=== PATIENT | female | born 1940 | race Caucasian/White ===

== ENCOUNTER → 2016-09-03 | Outpatient (CLI) | payer BC ==
[~2016-09-03] MED LIST: ATOR10TA88 PO; CHOL100010 PO; CLR10 PO; CORN1POW2 PO; DOCU-94 PO; FLUT0.15 NAE; GLIM4TAB2 PO; HYDR-5688 PO; LISI20TA3 PO; MELA3TAB7 PO; METF500T5 PO; METO1TAB31 PO; MTML PO; NIFE30TA83 PO; SYMIN160 INH; TRAM-10 PO; VITA60003 TOP
[2016-09-03 11:17] LABS: ESTIMATED AVERAGE GLUCOSE 137 mg/dl; HA1C FLAG Normal (Normal)
[2016-09-03 11:38] LABS: BLOOD UREA NITROGEN 10 mg/dl (7-18); CREATININE 0.77 mg/dl (0.60-1.20); GLUCOSE 122 mg/dl (70-99)
[2016-09-03 11:39] LABS: ALT/SGPT 38 U/L (12-78); AST/SGOT 36 U/L (15-37); BUN/CREATININE RATIO 12.4 (10-20); CALCIUM 9.3 mg/dl (8.5-10.1); CARBON DIOXIDE 30 mmol/L (21-32); CHLORIDE 106 mmol/L (98-107); POTASSIUM 3.7 mmol/L (3.5-5.1); SODIUM 143 mmol/L (136-145)
[2016-09-03 11:50] LABS: ALB/GLOB RATIO 1.1 (0.9-2); ALKALINE PHOSPHATASE 73 U/L (45-117); CHOLESTEROL 127 mg/dl (0-200); CHOLESTEROL/HDL RATIO 3.8; HDL CHOLESTEROL 33 mg/dl; LDL CHOLESTEROL CALCULATED 41 mg/dl; TRIGLYCERIDES 266 mg/dl (0-150); VERY LOW DENSITY LIPOPROT CALC 53 mg/dl
--- NOTE | 2016-09-09 11:20 | CODING QUERY MEDICAL NECESSITY ---
SUPPORTING DIAGNOSIS NEEDED Dr. Krishna, A supporting diagnosis is required for the test/procedure performed on this patient in order for us to be reimbursed by the patient's insurance. Please provide a supporting diagnosis for the following test/procedure listed below next to the test name along with your signature. *If there is no additional diagnosis for this patient that would support the following test/procedure please document that below next to the test/procedure. Test(s)/Procedure(s) that require a supporting diagnosis: * ([id number]) VITAMIN D ASSAY DIAGNOSIS: DATE OF SERVICE: 09/03/16 Provider Signature: Date: Thank you Shakeel Persaud [facility] Information Management Once completed, please kindly fax back to [phone] For questions please call [phone]
== END | disposition home or self-care (01) ==
LOC: C.LAB1850 10:21
PROVIDERS: ATTEND Internal Medicine Geriatric Medicine
DX: I10 Essential (primary) hypertension (principal); J45.909 Unspecified asthma, uncomplicated; E11.59 Type 2 diabetes mellitus with other circulatory complications; I25.10 Atherosclerotic heart disease of native coronary artery without angina pectoris; E04.2 Nontoxic multinodular goiter; R91.1 Solitary pulmonary nodule; K76.0 Fatty (change of) liver, not elsewhere classified; E55.9 Vitamin D deficiency, unspecified

== ENCOUNTER → 2016-09-05 | Outpatient (CLI) | payer BC ==
--- NOTE | 2016-09-05 09:15 | DIAGNOSTIC IMAGING REPORT ---
CT OF THE CHEST WITHOUT IV CONTRAST CLINICAL HISTORY: Solitary pulmonary nodule COMPARISON STUDY: 01/08/2016 CT DOSE: 224.29 mGy.cm TECHNIQUE: CT of the thorax was performed from the thoracic inlet to the lung bases. Images are reviewed in the axial, sagittal, and coronal planes. IV contrast was not administered for this examination. FINDINGS: Thyroid: There is an enlarged multinodular thyroid gland similar to the preceding study. Nodules measure up to 2 cm in diameter. Thoracic aorta: PA sitting thoracic aorta measures 39 mm. Heart: There are coronary artery calcifications present. Lungs and pleural spaces: No pleural effusions are visualized. There are stable areas of interstitial scarring. There is a 1 cm subpleural right middle lobe pulmonary nodule. This appears to be increased slightly in size compared the prior study. Neoplasm is therefore the diagnosis of exclusion. Also evident is a 1.5 mm left apical pulmonary nodule which in retrospect remains unchanged. Mediastinum: There is no evidence of pathologic mediastinal lymphadenopathy. Aminata: There is no evidence of pathologic hilar lymphadenopathy given the limitations of a noncontrast study. Axilla: Clear. Upper abdomen: The gallbladder surgically absent. There is a 1 cm right breast nodule. Skeletal structures: There are no lytic or blastic osseous lesions. IMPRESSION: 1. Slowly growing 1 cm subpleural right middle lobe pulmonary nodule. A slowly growing neoplasm is the diagnosis of exclusion. 2. Multinodular thyroid goiter 3. No evidence of pathologic adenopathy Electronically signed by: Juan Mixon M.D. 09/05/2016 9:12 AM Dictated Date/Time: 09/05/2016 9:03 AM
== END | disposition home or self-care (01) ==
LOC: C.CTS 08:43
PROVIDERS: ATTEND Internal Medicine Pulmonary Disease
DX: R91.1 Solitary pulmonary nodule (principal); E04.2 Nontoxic multinodular goiter

== ENCOUNTER → 2016-09-19 | Outpatient (CLI) | payer BC ==
[2016-09-19 13:01] LABS: BASO % 0.2 %; BASO ABS # 0.01 K/uL (0-0.2); COMPLETE YES; EOS % 1.6 %; LYMPH % 35.3 %; LYMPH ABS # 1.57 K/uL (1.2-3.4); MEAN CELL VOLUME 91.1 fL (80-100); MEAN CORPUSCULAR HEMOGLOBIN 31.9 pg (25-34); MEAN PLATELET VOLUME 9.8 fL (7.4-10.4); MONO % 8.8 %; NEUT % 54.1 %; PLATELET COUNT 168 K/uL (130-400); RED BLOOD COUNT 4.17 M/uL (4.2-5.4); WHITE BLOOD COUNT 4.45 K/uL (4.8-10.8)
== END | disposition home or self-care (01) ==
LOC: C.LAB 12:17
PROVIDERS: ATTEND Surgery
DX: R91.1 Solitary pulmonary nodule (principal); C34.90 Malignant neoplasm of unspecified part of unspecified bronchus or lung

== ENCOUNTER 2016-10-02 05:24 | Inpatient (IN) | payer BC, OTHER ==
[2016-10-01 09:03] VITALS: BMI 29.0
[2016-10-02] VITALS (8 sets, daily range): BP systolic 148–184; BP diastolic 65–88; PULSE 56–66; TEMP 36.2–36.6; O2SAT 95–98; Ht 167.6 cm; Wt 82.3 kg
[~2016-10-02] VITALS: Ht 167.6 cm; Wt 82.3 kg
[~2016-10-02 05:24] MED LIST changes: -CORN1POW2 PO; -DOCU-94 PO; -HYDR-5688 PO; -TRAM-10 PO
[2016-10-02] MEDS ORDERED: LACTATED RINGER'S 1000ML 1,000 ML IV SCH (06:00)
[2016-10-02] MEDS ORDERED: ALBUMIN HUMAN 5% 12.5 GM/250 ML VIAL IV ONE (06:29)
[2016-10-02] MEDS ORDERED: LIDOCAINE HCL 2% 2 ML VIAL (20MG/ML) ONE (06:41)
[2016-10-02] MEDS ORDERED: PROPOFOL IV EMULSION 10 MG/ML 20 ML VIAL IV ONE (06:41)
[2016-10-02] MEDS ORDERED: MIDAZOLAM HCL 1 MG/ML 2ML VIAL ONE (06:41)
[2016-10-02] MEDS ORDERED: DEXAMETHASONE SOD INJ 4 MG/ML VIAL ONE (06:41)
[2016-10-02] MEDS ORDERED: ROCURONIUM BROMIDE 10 MG/ML 5 ML VIAL ONE ×2 (06:41→09:08)
[2016-10-02] MEDS ORDERED: FENTANYL CITRATE INJ 50 MCG/1 ML 2 ML VIAL ONE ×2 (06:41→08:56)
[2016-10-02] MEDS ORDERED: ONDANSETRON INJ 2 MG/ML 2 ML VIAL ONE (06:41)
[2016-10-02] MEDS ORDERED: GLYCOPYRROLATE INJ 0.2 MG/ML VIAL ONE (06:41)
[2016-10-02] MEDS ORDERED: NEOSTIGMINE METHYLSULFATE 5 MG/5 ML SYR ONE (06:41)
--- NOTE | 2016-10-02 06:41 | History & Physical Bridge Note ---
H&P Re-Evaluation Bridge Note: I have examined the patient, reviewed the History & Physical and in the interval since the performance of the History & Physical I have noted the following changes of clinical significance: No changes noted
[2016-10-02] MEDS ORDERED: PHENYLEPHRINE HCL INJ 10 MG/ML VIAL ONE (06:42)
[2016-10-02] MEDS ORDERED: LARYING-O-JET KIT (LTA) EXT ONE ×2 (06:44)
[2016-10-02] MEDS ORDERED: BUPIVACAINE LIPOSOME 1/3% 266 MG/20 ML VIAL INFIL ONE (07:05)
[2016-10-02] MEDS ORDERED: SODIUM CHLORIDE 0.9% PF 50 ML VIAL ONE (07:05)
[2016-10-02] MEDS ORDERED: CEFAZOLIN SOD 1 GM VIAL ONE (07:23)
[2016-10-02] MEDS ORDERED: SODIUM CHLORIDE 0.9% INJ 10 ML VIAL ONE (07:23)
[2016-10-02] MEDS ORDERED: ONDANSETRON INJ 2 MG/ML 2 ML VIAL IV PRN ×2 (09:15→11:00)
[2016-10-02] MEDS ORDERED: HYDROmorphone INJ 1 MG/ML SYR IV PRN (09:15)
[2016-10-02] MEDS ORDERED: ATROPINE SULFATE 0.1 MG/ML 5ML SYR IV PRN (09:15)
[2016-10-02] MEDS ORDERED: EpHEDrine SULFATE INJ 50 MG/ML AMP IV PRN (09:15)
[2016-10-02] MEDS ORDERED: PROMETHAZINE HCL INJ 6.25 MG in SODIUM CHLORIDE 0.9% 50ML 50 ML IV PRN (09:15)
[2016-10-02] MEDS ORDERED: SURGICEL ABSORB HEMOSTAT 2IN X 14IN TOP ONE (10:32)
[2016-10-02] MEDS ORDERED: OXYCODONE/ACETAMINOPHEN 5-325 TAB PO PRN (11:00)
[2016-10-02] MEDS ORDERED: BUDESONIDE/FORMOTEROL FUMARATE 160/4.5 60 PUFFS/INHALER INH PRN (11:00)
[2016-10-02] MEDS ORDERED: MoRPHine SULFATE 2 MG/ML CARP IV PRN (11:00)
[2016-10-02] MEDS: FENTANYL CITRATE INJ 50 MCG/1 ML 2 ML VIAL IV PRN ×4 (11:15→11:30)
--- NOTE | 2016-10-02 11:23 | DIAGNOSTIC IMAGING REPORT ---
CHEST ONE VIEW PORTABLE HISTORY: Postop. Right lung mass. COMPARISON: Chest 02/25/2014. FINDINGS: Small amount of right chest wall subcutaneous emphysema. There is suture material at the right lung base. Right-sided chest tube terminates within the right upper lung zone. There are few linear densities at the right lung base suggesting subsegmental atelectasis. No pneumothorax identified this time. Of note, the right medial lung apex is obscured by the patient's overlapping head. Patchy densities at the left lung base may represent atelectasis. The heart is enlarged. There are low lung volumes. IMPRESSION: Right-sided chest tube appears to be in good position. No definite right pneumothorax. Electronically signed by: Magnus Da Silva M.D. 10/02/2016 11:21 AM Dictated Date/Time: 10/02/2016 11:20 AM
--- NOTE | 2016-10-02 12:27 | OPERATIVE REPORT ---
DATE OF OPERATION: 10/02/2016 PREOPERATIVE DIAGNOSIS: Enlarging mass, right middle lobe. POSTOPERATIVE DIAGNOSIS: Benign cyst, right middle lobe. PROCEDURE: 1. Robotic-assisted thoracoscopic wedge resection of right middle and right lower lobe masses. 2. Lymph node biopsies SURGEON: Dr. Sánchez. ANTIQUE COLLECTOR: PETER Clements. ANESTHESIA: General anesthesia endotracheal intubation. INDICATIONS FOR PROCEDURE AND FINDINGS: Ms. Etienne is a 76-year-old female who is a patient of Dr. Nathaniel Krishna, who was found to have a mass in the right middle lobe. This was seen to be enlarging on CT scans. Her lung function showed she would easily tolerate a right middle lobectomy. We had a long talk about this and we elected to proceed with a resection. We discussed thoracoscopic open or a robotic approach and elected to proceed with a da Otis robot. On 10/02/2016, patient underwent uncomplicated wedge resection of this mass, which turned out to be a benign cyst. She also had an abnormal appearing whitish plaque on her lower lobe and we wedged both of these out. We had no air leak with negligible blood loss. We used an Exparel block. She tolerated it well. PROCEDURE IN DETAIL: The patient brought to the operating room and laid in supine position. General anesthesia induced and endotracheal intubation was performed with a double lumen tube. The patient was placed in left lateral decubitus position. Right chest was prepped and draped in the usual sterile fashion. After appropriate timeout had been called, 5 separate ports were placed. A 5 mm posterior port was placed as well as a 8.5 mm camera port, posterior port and anterior port. We also placed a port below this above the diaphragm which was 12 mm port for a stapler. The patient had no adhesions. The mass was easily seen. We grasped this and we excised this using an Endo-SANCHEZ stapler x2. This was a thin-walled cyst that ruptured when we were firing our stapler. I marked this with a marker and then discussed it with Dr. Luis Alfredo Serrano and he looked at this and felt on frozen section, this was a benign cyst. I also saw a whitish plaque which was also thin but I wedged this out of the lower lobe also. While waiting for the frozen sections, the inferior pulmonary ligament was taken down and the right level 8, 9 and 7 lymph nodes. We then used 266 mg of Exparel, reconstituted with 60 mL total of saline and performed a block from the 2nd to the 11th rib under thoracoscopic guidance. We then placed a 24-Eritrean chest tube directed towards the apex and secured in place with heavy silk suture. The incisions were closed with 0 Polysorb for the muscle layers as a single incision and then the skin was closed with 3-0 antimicrobial impregnated Vicryl. She tolerated this well. She had no air leak and negligible blood loss. She was extubated in the room. I attest to the content of the Intraoperative Record and any orders documented therein. Any exceptions are noted below. MTDD
[2016-10-02] MEDS: KETOROLAC TROMETHAMINE 15 MG/ML VIAL IV. SCH ×2 (13:41→22:15)
[2016-10-02] MEDS: METOCLOPRAMIDE HCL INJ 5 MG/ML 2 ML VIAL IV. SCH ×2 (13:41→22:14)
[2016-10-02] MEDS: CEFAZOLIN IV 2,000 MG in DEXTROSE 5% 50ML 100 ML IV SCH ×2 (13:42→22:55)
[2016-10-02] MEDS: ACETAMINOPHEN IV 1,000 MG in EMPTY BAG 0 ML IV SCH ×2 (13:42→22:15)
[2016-10-02] MEDS: SODIUM CHLORIDE 0.9% 1000ML 1,000 ML IV SCH (13:52)
[2016-10-02] MEDS: INSULIN ASPART 100 UNITS/ML 3 ML PEN SC SCH ×3 (14:02→21:21)
--- NOTE | 2016-10-02 14:33 | Anesthesiology Progress Note ---
Anesthesia Post Op Note Date & Time Oct 02, 2016 at 14:32 Vital Signs Pain Intensity: 10.0 Vital Signs Past 12 Hours Date Time Temp Pulse Resp B/P Pulse Ox O2 Delivery O2 Flow Rate FiO2 10/02/16 13:29 56 16 154/85 97 3.0 10/02/16 13:02 56 16 163/81 97 3.0 10/02/16 12:30 36.2 57 16 159/82 95 Nasal Cannula 4.0 10/02/16 12:00 36.2 55 14 156/68 98 Nasal Cannula 4 10/02/16 11:50 36.2 55 14 152/63 98 Nasal Cannula 4 10/02/16 11:40 36.2 55 14 156/63 98 Nasal Cannula 4 10/02/16 11:30 61 14 145/70 100 Mask 10 10/02/16 11:20 57 14 156/71 100 Mask 10 10/02/16 11:10 60 14 149/72 100 Mask 10 10/02/16 11:02 36.3 62 14 147/68 100 Mask 10 10/02/16 06:24 36.5 66 20 184/88 96 Room Air Notes Mental Status: alert / awake / arousable, participated in evaluation Pt Amnestic to Procedure: Yes Nausea / Vomiting: adequately controlled Pain: adequately controlled Airway Patency, RR, SpO2: stable & adequate BP & HR: stable & adequate Hydration State: stable & adequate Anesthetic Complications: no major complications apparent
[2016-10-02] MEDS: DOCUSATE SODIUM 100 MG CAP PO SCH (20:46)
[2016-10-02] MEDS ORDERED: FLUTICASONE PROPIONATE NA SPR 16 GM BTL NAE SCH (21:00)
[2016-10-03] VITALS: BP 129/75; PULSE 61; TEMP 36.5; O2SAT 96
[2016-10-03] MEDS: SODIUM CHLORIDE 0.9% 1000ML 1,000 ML IV SCH (00:26)
[2016-10-03 03:43] VITALS: BP 150/80; PULSE 56; TEMP 36.7; O2SAT 93
[2016-10-03] MEDS: ACETAMINOPHEN IV 1,000 MG in EMPTY BAG 0 ML IV SCH (05:58)
[2016-10-03] MEDS: KETOROLAC TROMETHAMINE 15 MG/ML VIAL IV. SCH (05:59)
[2016-10-03] MEDS: METOCLOPRAMIDE HCL INJ 5 MG/ML 2 ML VIAL IV. SCH (05:59)
[2016-10-03 07:41] VITALS: BP 149/88; PULSE 59; TEMP 36.6; O2SAT 91
[2016-10-03 08:07] LABS: INR 1.1 (0.9-1.1); PARTIAL THROMBOPLASTIN RATIO 1.1; PROTHROMBIN TIME (PATIENT) 12.1 SECONDS (9.0-12.0)
--- NOTE | 2016-10-03 08:10 | DIAGNOSTIC IMAGING REPORT ---
CHEST ONE VIEW PORTABLE HISTORY: Postop. s/p RML Wedge COMPARISON: Chest 10/02/2016. FINDINGS: Right-sided chest tube remains unchanged in position. Right basilar opacities have improved. Suture material seen within the right lung base. Suspect a tiny right epididymal pneumothorax. Pleural gap of 3 mm. Linear density left lung base favor subsegmental atelectasis. The heart is mildly enlarged. IMPRESSION: 1. Right-sided chest tube is unchanged in position. There is a tiny right apical pneumothorax. 2. Improved aeration within the right lung base. Electronically signed by: Magnus Da Silva M.D. 10/03/2016 8:09 AM Dictated Date/Time: 10/03/2016 8:07 AM
[2016-10-03] MEDS ORDERED: GLIMEPIRIDE 2 MG TAB PO SCH (08:30)
[2016-10-03] MEDS ORDERED: TRAM-10 PO (08:53)
[2016-10-03] MEDS ORDERED: DOCU-94 PO (08:53)
--- NOTE | 2016-10-03 08:55 | Discharge Instructions ---
Discharge Instructions Admission Reason for Admission: Right Lung Mass Discharge Discharge Diagnosis / Problem: Right Lung Mass Discharge Goals Goal(s): Learn about illness Activity Recommendations Activity Limitations: as noted below Lifting Limitations: none 1. Do not drive if taking ultram. 2. You may remove dressing in 3 days and then shower. No tub baths. 3. Do not fly until cleared to do so by [facility]. . Instructions / Follow-Up Instructions / Follow-Up 1. Appointment with Dr. Mott in 1-2 weeks. Office will call with date and time of appointment. You will need a chest x-ray prior to appointment. Current Hospital Diet Patient's current hospital diet: Diabetes Type 2 Diet Discharge Diet Recommended Diet: Diabetes Type 2 Diet Procedures Procedures Performed: Robotic Assisted Right Thoracoscopy with Right Middle Lobe Wedge Resection, with Mediastianal Lymphadenectomy Pending Studies Studies pending at discharge: no Laboratory Results Hemoglobin A1c Test 09/03/16 10:27 Range/Units Estimated Average Glucose 137 mg/dl Hemoglobin A1c 6.4 H 4.5-5.6 % Lipid Panel Test 09/03/16 10:27 Range/Units Triglycerides Level 266 H 0-150 mg/dl Cholesterol Level 127 0-200 mg/dl HDL Cholesterol 33 mg/dl Cholesterol/HDL Ratio 3.8 LDL Cholesterol, Calculated 41 mg/dl Medical Emergencies . Who to Call and When: Medical Emergencies: If at any time you feel your situation is an emergency, please call 911 immediately. . Non-Emergent Contact Non-Emergency issues call your: Surgeon Call Non-Emergent contact if: you have a fever, your pain is not controlled, wound has increased drainage . "Provider Documentation" section prepared by James Osullivan. VTE Core Measure Inpt VTE Proph given/why not?: Enoxaparin (Lovenox)SQ
[2016-10-03] MEDS ORDERED: NIFEdipine 30 MG CR TAB PO SCH (09:00)
[2016-10-03] MEDS ORDERED: ENOXAPARIN 40 MG/0.4 ML SYR SQ SCH (09:00)
[2016-10-03] MEDS ORDERED: CHOLECALCIFEROL 1000 INTER.UNIT TAB PO SCH (09:00)
[2016-10-03] MEDS ORDERED: LORATADINE 10 MG TAB PO SCH (09:00)
[2016-10-03] MEDS ORDERED: METOPROLOL SUCC 25MG EXT REL TAB PO SCH (09:00)
[2016-10-03] MEDS ORDERED: PSYLLIUM 58.6% PWD PACK S\\F PO SCH (09:00)
[2016-10-03] MEDS ORDERED: ATORVASTATIN 10 MG TAB PO SCH (09:00)
[2016-10-03] MEDS ORDERED: LISINOPRIL 20 MG TAB PO SCH (09:00)
[2016-10-03] MEDS: DOCUSATE SODIUM 100 MG CAP PO SCH (09:05)
[2016-10-03] MEDS: INSULIN ASPART 100 UNITS/ML 3 ML PEN SC SCH (09:24)
--- NOTE | 2016-10-03 09:28 | DISCHARGE SUMMARY ---
DATE OF DISCHARGE: 10/03/2016. DISCHARGE DIAGNOSES: Benign mass right middle lobe and right lower lobe. PROCEDURE: 1. Robotic-assisted thoracoscopic surgery with wedge resection of right lower lobe and right middle lobe masses. 2. Biopsy of mediastinal lymph nodes. HOSPITAL COURSE: Ms. Landy Etienne is a 76-year-old who has a mass in her right middle lobe that was growing. We were concerned about this and after much discussion, we elected to proceed with a robotic wedge resection, frozen section, possible right middle lobectomy. On 10/02/2016, the patient was brought to the operating room and was noted to have this mass which was a cyst. We wedged this out and under frozen section this seemed to be benign. While waiting for the frozen section, I took down the inferior pulmonary ligament, biopsied the level 7, 8 and 9 lymph nodes. These were sent for permanent sections and are not back at the time of this dictation. While we were inspecting the lung we saw white plaque on the lower lobe and wedged this out also with an Endo-SANCHEZ stapler. This likewise was benign. She had no air leak. We had negligible blood loss. We watched her on the floor overnight. Her chest tube was removed the following day and her incisions were all clean. We discharged her on postop day 1 and will see her back in the office next week to go over her final pathology. I was quite happy with her hospital course.
--- NOTE | 2016-10-03 09:55 | DIAGNOSTIC IMAGING REPORT ---
SINGLE VIEW CHEST CLINICAL HISTORY: Chest tube removal. Right lung mass with right middle lobe wedge resection. FINDINGS: An AP, portable, upright chest radiograph is compared to study dated 10/03/16. Correlation is made with chest CT dated 09/05/2016. The examination is degraded by portable technique and patient rotation. The heart is enlarged and there is atherosclerotic calcification of the thoracic aorta. The pulmonary vasculature is noncongested. Emphysema is noted. There are postoperative changes and volume loss in the right lung consistent with right middle lobe resection. Suture material projects over the right lung base. No airspace consolidation or pleural effusion is identified. The chest tube has been removed. No right-sided pneumothorax is seen. The skeletal structures are osteopenic. The bony thorax is grossly intact. Subcutaneous emphysema is noted along the right chest wall. IMPRESSION: 1. The right-sided chest tube has been removed. No definite pneumothorax is identified. 2. Emphysema and postoperative changes from right middle lobe resection are again noted. 3. There is no airspace consolidation or pleural effusion. 4. Cardiomegaly without radiographic evidence of congestive failure. Electronically signed by: Catrachito Parson M.D. 10/03/2016 9:53 AM Dictated Date/Time: 10/03/2016 9:50 AM
[2016-10-03 10:28] VITALS: BP 149/88; PULSE 59; TEMP 36.6; O2SAT 91
== END 2016-10-03 11:19 | disposition home or self-care (01) | DRG 167 ==
LOC: ENRESERVTM → ENRESERVDT → C.ACU 05:24 → C.MSN 06:55
PROVIDERS: ADMIT Surgery; ATTEND Surgery
PROC: 0BBD4ZX Excision of Right Middle Lung Lobe, Percutaneous Endoscopic Approach, Diagnostic (ICD-10-PCS; 2016-10-02)
PROC: 07B73ZX Excision of Thorax Lymphatic, Percutaneous Approach, Diagnostic (ICD-10-PCS; 2016-10-02)
PROC: 8E0W4CZ Robotic Assisted Procedure of Trunk Region, Percutaneous Endoscopic Approach (ICD-10-PCS; 2016-10-02)
PROC: 0BBF4ZX Excision of Right Lower Lung Lobe, Percutaneous Endoscopic Approach, Diagnostic (ICD-10-PCS; principal; 2016-10-02 07:30)
DX: D14.31 Benign neoplasm of right bronchus and lung (principal); J84.9 Interstitial pulmonary disease, unspecified; J30.9 Allergic rhinitis, unspecified; J45.909 Unspecified asthma, uncomplicated; I25.10 Atherosclerotic heart disease of native coronary artery without angina pectoris; E78.5 Hyperlipidemia, unspecified; K21.9 Gastro-esophageal reflux disease without esophagitis; M10.9 Gout, unspecified; G47.00 Insomnia, unspecified; M85.80 Other specified disorders of bone density and structure, unspecified site; E04.2 Nontoxic multinodular goiter; K76.0 Fatty (change of) liver, not elsewhere classified; E11.59 Type 2 diabetes mellitus with other circulatory complications; E55.9 Vitamin D deficiency, unspecified; Z85.828 Personal history of other malignant neoplasm of skin; Z79.899 Other long term (current) drug therapy; Z80.9 Family history of malignant neoplasm, unspecified; Z88.2 Allergy status to sulfonamides; Z88.3 Allergy status to other anti-infective agents; Z82.49 Family history of ischemic heart disease and other diseases of the circulatory system; Z83.3 Family history of diabetes mellitus; Z81.1 Family history of alcohol abuse and dependence; Z90.49 Acquired absence of other specified parts of digestive tract; Z90.710 Acquired absence of both cervix and uterus; Z86.010 Personal history of colon polyps

== ENCOUNTER → 2016-10-10 | Outpatient (CLI) | payer BC ==
[~2016-10-10] MED LIST changes: +DOCU-94 PO; +TRAM-10 PO
--- NOTE | 2016-10-10 08:54 | DIAGNOSTIC IMAGING REPORT ---
CHEST 2 VIEWS ROUTINE CLINICAL HISTORY: R91.8 Multiple pulmonary nodules s/p lung resection COMPARISON STUDY: 10/03/2016 FINDINGS: Postoperative changes considered stable post right middle lobe resection. Minimal residual atelectatic change right base. Lungs otherwise appear grossly clear. No evidence for significant pneumothorax. Clinical slight pleural separation right pulmonary apex possibly postoperative IMPRESSION: Improved examination of the chest posterior right middle lobe resection. Mild residual atelectatic change right base. Possible tiny right apical pneumothorax Electronically signed by: Leland Hewitt M.D. 10/10/2016 8:53 AM Dictated Date/Time: 10/10/2016 8:50 AM
== END | disposition home or self-care (01) ==
LOC: C.RAD1850 08:40
PROVIDERS: ATTEND Surgery
DX: R91.8 Other nonspecific abnormal finding of lung field (principal); Z90.2 Acquired absence of lung [part of]

== ENCOUNTER → 2016-10-17 | Outpatient (CLI) | payer BC ==
--- NOTE | 2016-10-17 10:33 | DIAGNOSTIC IMAGING REPORT ---
CHEST 2 VIEWS ROUTINE CLINICAL HISTORY: Lung nodule COMPARISON STUDY: Chest radiograph October 10, [address] September 05, 2016. FINDINGS: Postsurgical findings within the right lower lung are noted. There is no evidence of pulmonary edema. Mild bibasilar opacities favor atelectasis. Cardiomediastinal silhouette is stable. There is no pneumothorax. There may be a trace right pleural effusion. IMPRESSION: 1. Mild bibasilar opacities which favor atelectasis. Possible trace right pleural effusion. 2. No pneumothorax. Electronically signed by: Panchito Tomlin M.D. 10/17/2016 10:31 AM Dictated Date/Time: 10/17/2016 10:29 AM
== END | disposition home or self-care (01) ==
LOC: C.RAD1850 09:54
PROVIDERS: ATTEND Surgery
DX: R91.1 Solitary pulmonary nodule (principal)

== ENCOUNTER → 2016-11-13 | Outpatient (CLI) | payer BC ==
--- NOTE | 2016-11-13 09:35 | DIAGNOSTIC IMAGING REPORT ---
CHEST 2 VIEWS ROUTINE CLINICAL HISTORY: Multiple pulmonary nodules. COMPARISON STUDY: Chest CT September 05, 2016 and chest radiograph October 17, 2016. FINDINGS: Lung volumes are normal. There is no pneumothorax. There may be a trace right pleural effusion. Postsurgical findings within the right lower lung are noted. The appearance is unchanged since exam of October 17, 2016. There is no evidence of pulmonary edema. There is no pneumothorax. IMPRESSION: Stable postoperative findings. Suspected trace right pleural effusion with minimal bibasilar atelectasis. Electronically signed by: Panchito Tomlin M.D. 11/13/2016 9:34 AM Dictated Date/Time: 11/13/2016 9:32 AM
== END | disposition home or self-care (01) ==
LOC: C.RAD1850 09:14
PROVIDERS: ATTEND Surgery
DX: R91.8 Other nonspecific abnormal finding of lung field (principal)

== ENCOUNTER → 2016-11-26 | Outpatient (CLI) | payer BC ==
[~2016-11-26] MED LIST changes: +ATOR10TA82 PO; -ATOR10TA88 PO; +METO-478 PO; -METO1TAB31 PO
[2016-11-26 13:04] LABS: BLOOD UREA NITROGEN 12 mg/dl (7-18); BUN/CREATININE RATIO 16.3 (10-20); CALCIUM 9.1 mg/dl (8.5-10.1); CARBON DIOXIDE 26 mmol/L (21-32); CHLORIDE 107 mmol/L (98-107); CREATININE 0.72 mg/dl (0.60-1.20); GLUCOSE 164 mg/dl (70-99); POTASSIUM 3.5 mmol/L (3.5-5.1); SODIUM 142 mmol/L (136-145); URIC ACID 6.2 mg/dl (2.6-7.2)
[2016-11-27 06:30] LABS: ESTIMATED AVERAGE GLUCOSE 128 mg/dl; HA1C FLAG Normal (Normal)
== END | disposition home or self-care (01) ==
LOC: C.LABPBG 11:03
PROVIDERS: ATTEND Internal Medicine Geriatric Medicine
DX: I10 Essential (primary) hypertension (principal); M10.9 Gout, unspecified; E11.59 Type 2 diabetes mellitus with other circulatory complications

== ENCOUNTER → 2017-02-11 | Outpatient (CLI) | payer BC ==
--- NOTE | 2017-02-11 09:47 | DIAGNOSTIC IMAGING REPORT ---
CHEST 2 VIEWS ROUTINE HISTORY: R91.8 Multiple pulmonary [id number] COMPARISON: Chest 11/13/2016. FINDINGS: The lungs remain clear. The heart is stable in size. No pleural effusions. No pneumothorax. Left upper tracheal deviation remains unchanged. Stable suture material within the right lower lung zone. IMPRESSION: Postoperative changes within the right lung base. No acute process within the chest. Electronically signed by: Magnus Da Silva M.D. 02/11/2017 9:46 AM Dictated Date/Time: 02/11/2017 9:39 AM
== END | disposition home or self-care (01) ==
LOC: C.RAD1850 09:12
PROVIDERS: ATTEND Surgery
DX: R91.8 Other nonspecific abnormal finding of lung field (principal)

== ENCOUNTER → 2017-02-27 | Outpatient (CLI) | payer BC ==
[~2017-02-27] MED LIST changes: -ATOR10TA82 PO; +ATOR10TA88 PO; -METO-478 PO; +METO1TAB31 PO
--- NOTE | 2017-02-27 15:22 | MAMMOGRAPHY REPORT ---
BILATERAL DIGITAL SCREENING MAMMOGRAM TOMOSYNTHESIS WITH CAD: 02/27/2017 CLINICAL HISTORY: Routine screening. TECHNIQUE: Breast tomosynthesis in addition to standard 2D mammography was performed. Current study was also evaluated with a Computer Aided Detection (CAD) system. COMPARISON: Comparison is made to exams dated: 02/29/2016 mammogram, 02/26/2016 mammogram, 02/22/2015 ma mmogram, 02/21/2014 mammogram, 02/17/2013 mammogram, and 02/17/2012 mammogram - [facility] BREAST COMPOSITION: There are scattered areas of fibroglandular density in both breasts. FINDINGS: No suspicious masses, calcifications, or areas of architectural distortion are noted in ei ther breast. There has been no significant interval change compared to prior exams. Linear scar samara er denotes scars on the right upper outer breast from prior surgical excision. Scattered bilateral b enign-appearing calcifications are not significantly changed. Focal asymmetry in the right 12:00 snow ast is stable dating back to at least the 2007 and 2008 exams. IMPRESSION: ACR BI-RADS CATEGORY 2: BENIGN There is no mammographic evidence of malignancy. A 1 year screening mammogram is recommended. The pa tient will receive written notification of the results. Approximately 10% of breast cancers are not detected with mammography. A negative mammographic report should not delay biopsy if a clinically suggestive mass is present. Janel Robb M.D. /:02/27/2017 08:17:25 Colon Therapist: Milena HERNANDEZ)([place]), [facility] letter sent: Normal 1/2 BI-RADS Code: ACR BI-RADS Category 2: Benign
== END | disposition home or self-care (01) ==
LOC: C.MAMM 07:47
PROVIDERS: ATTEND Internal Medicine Geriatric Medicine
DX: Z12.31 Encounter for screening mammogram for malignant neoplasm of breast (principal)

== ENCOUNTER → 2017-03-06 | Outpatient (CLI) | payer BC ==
--- NOTE | 2017-03-06 12:07 | DIAGNOSTIC IMAGING REPORT ---
CHEST 2 VIEWS ROUTINE HISTORY: 76 years Female transient shortness of breath COMPARISON: 02/11/2017 chest radiograph TECHNIQUE: Frontal and lateral views of the chest FINDINGS: Metallic suture material at the level of the right lung base is redemonstrated. No pneumothorax, pleural effusion or focal airspace consolidation. There is minimal linear scarring adjacent to the suture material the level the right lung base. No overt pulmonary edema. Cardiac mediastinal and hilar silhouettes are within normal limits. The bones appear grossly intact. Surgical clips in the upper abdomen suggest prior cholecystectomy. IMPRESSION: 1. No acute cardiopulmonary process. 2. Postsurgical changes of the right lung base with adjacent subsegmental scarring. The above report was generated using voice recognition software. It may contain grammatical, syntax or spelling errors. Electronically signed by: Rod Shannon M.D. 03/06/2017 12:06 PM Dictated Date/Time: 03/06/2017 12:04 PM
[2017-03-06 13:27] LABS: BASO % 0.2 %; BASO ABS # 0.01 K/uL (0-0.2); COMPLETE YES; EOS % 1.2 %; HEMATOCRIT 38.5 % (37-47); LYMPH % 33.3 %; LYMPH ABS # 1.63 K/uL (1.2-3.4); MEAN CELL VOLUME 91.7 fL (80-100); MEAN CORPUSCULAR HEMOGLOBIN 31.4 pg (25-34); MEAN CORPUSCULAR HGB CONC 34.3 g/dl (32-36); MEAN PLATELET VOLUME 10.7 fL (7.4-10.4); MONO % 6.5 %; NEUT % 58.8 %; PLATELET COUNT 182 K/uL (130-400)
[2017-03-06 13:46] LABS: ALT/SGPT 34 U/L (12-78); BLOOD UREA NITROGEN 9 mg/dl (7-18); BUN/CREATININE RATIO 11.8 (10-20); CALCIUM 9.6 mg/dl (8.5-10.1); CARBON DIOXIDE 25 mmol/L (21-32); CHLORIDE 106 mmol/L (98-107); CREATININE 0.79 mg/dl (0.60-1.20); GLUCOSE 218 mg/dl (70-99); POTASSIUM 3.5 mmol/L (3.5-5.1); SODIUM 139 mmol/L (136-145)
[2017-03-06 13:49] LABS: ALB/GLOB RATIO 1.1 (0.9-2); ALKALINE PHOSPHATASE 71 U/L (45-117); AST/SGOT 34 U/L (15-37)
[2017-03-06 15:00] LABS: LYME DISEASE AB IGG NEG (NEG)
[2017-03-06 15:05] LABS: LYME DISEASE AB IGM EQUIVOCAL (NEG)
[2017-03-13 00:46] LABS: 18KDIGG BAND NONREACTIVE (NONREACTIVE); 23KDIGG BAND NONREACTIVE (NONREACTIVE); 28KDIGG BAND NONREACTIVE (NONREACTIVE); 30KDIGG BAND NONREACTIVE (NONREACTIVE); 39KDIGG BAND NONREACTIVE (NONREACTIVE); 41KDIGG BAND NONREACTIVE (NONREACTIVE); 45KDIGG BAND NONREACTIVE (NONREACTIVE); 58KDIGG BAND NONREACTIVE (NONREACTIVE); 66KDIGG BAND NONREACTIVE (NONREACTIVE); 93KDIGG BAND NONREACTIVE (NONREACTIVE)
== END | disposition home or self-care (01) ==
LOC: C.LABBC 11:15
PROVIDERS: ATTEND Internal Medicine Geriatric Medicine
DX: R61 Generalized hyperhidrosis (principal); R06.02 Shortness of breath; R91.8 Other nonspecific abnormal finding of lung field

== ENCOUNTER → 2017-04-19 | Outpatient (CLI) | payer BC ==
[~2017-04-19] MED LIST changes: -TRAM-10 PO
[2017-04-19 13:00] LABS: BASO % 0.2 %; BASO ABS # 0.01 K/uL (0-0.2); COMPLETE YES; HEMATOCRIT 39.2 % (37-47); LYMPH % 35.1 %; LYMPH ABS # 1.62 K/uL (1.2-3.4); MEAN CELL VOLUME 92.2 fL (80-100); MEAN CORPUSCULAR HEMOGLOBIN 31.5 pg (25-34); MEAN CORPUSCULAR HGB CONC 34.2 g/dl (32-36); MEAN PLATELET VOLUME 10.1 fL (7.4-10.4); MONO % 5.6 %; NEUT % 57.1 %; PLATELET COUNT 178 K/uL (130-400); RED BLOOD COUNT 4.25 M/uL (4.2-5.4); WHITE BLOOD COUNT 4.61 K/uL (4.8-10.8)
[2017-04-19 13:27] LABS: ESTIMATED AVERAGE GLUCOSE 151 mg/dl; HA1C FLAG Normal (Normal)
[2017-04-19 13:49] LABS: ALT/SGPT 35 U/L (12-78); AST/SGOT 44 U/L (15-37); BLOOD UREA NITROGEN 10 mg/dl (7-18); BUN/CREATININE RATIO 13.3 (10-20); CALCIUM 9.3 mg/dl (8.5-10.1); CARBON DIOXIDE 28 mmol/L (21-32); CHLORIDE 108 mmol/L (98-107); CREATININE 0.74 mg/dl (0.60-1.20); GLUCOSE 215 mg/dl (70-99); POTASSIUM 3.7 mmol/L (3.5-5.1); SODIUM 140 mmol/L (136-145)
[2017-04-19 13:51] LABS: ALKALINE PHOSPHATASE 70 U/L (45-117)
== END | disposition home or self-care (01) ==
LOC: C.LABBC 09:45
PROVIDERS: ATTEND Internal Medicine Geriatric Medicine
DX: J45.909 Unspecified asthma, uncomplicated (principal); I25.10 Atherosclerotic heart disease of native coronary artery without angina pectoris; K76.0 Fatty (change of) liver, not elsewhere classified; I10 Essential (primary) hypertension; E11.59 Type 2 diabetes mellitus with other circulatory complications

== ENCOUNTER → 2017-11-06 | Outpatient (CLI) | payer BC ==
[~2017-11-06] MED LIST changes: +ATOR10TA82 PO; -ATOR10TA88 PO; +METO-478 PO; -METO1TAB31 PO
[2017-11-06 13:41] LABS: BASO % 0.2 %; BASO ABS # 0.01 K/uL (0-0.2); EOS % 1.1 %; EOS ABS # 0.05 K/uL (0-0.5); HEMOGLOBIN 13.7 g/dL (12.0-16.0); IG# 0.01 K/uL (0.00-0.02); LYMPH % 35.9 %; LYMPH ABS # 1.71 K/uL (1.2-3.4); MEAN CELL VOLUME 90.9 fL (80-100); MEAN CORPUSCULAR HEMOGLOBIN 31.9 pg (25-34); MEAN CORPUSCULAR HGB CONC 35.1 g/dl (32-36); MEAN PLATELET VOLUME 10.5 fL (7.4-10.4); MONO % 6.5 %; MONO ABS # 0.31 K/uL (0.11-0.59); NEUT % 56.1 %; NEUT ABS # 2.67 K/uL (1.4-6.5); PLATELET COUNT 181 K/uL (130-400); RED CELL DISTRIBUTION WIDTH CV 13.3 % (11.5-14.5); RED CELL DISTRIBUTION WIDTH SD 43.7 fL (36.4-46.3); WHITE BLOOD COUNT 4.76 K/uL (4.8-10.8)
[2017-11-06 14:37] LABS: ALBUMIN 3.7 gm/dl (3.4-5.0); ALT/SGPT 30 U/L (12-78); AST/SGOT 25 U/L (15-37); BLOOD UREA NITROGEN 10 mg/dl (7-18); CALCIUM 9.1 mg/dl (8.5-10.1); CARBON DIOXIDE 27 mmol/L (21-32); CHOLESTEROL 120 mg/dl (0-200); CREATININE 0.83 mg/dl (0.60-1.20); GLUCOSE 330 mg/dl (70-99); POTASSIUM 3.7 mmol/L (3.5-5.1); SODIUM 139 mmol/L (136-145)
[2017-11-06 14:44] LABS: ALKALINE PHOSPHATASE 78 U/L (45-117); LDL CHOLESTEROL CALCULATED 44 mg/dl
== END | disposition home or self-care (01) ==
LOC: C.LABBC 10:01
PROVIDERS: ATTEND Internal Medicine Geriatric Medicine
DX: I10 Essential (primary) hypertension (principal); J45.909 Unspecified asthma, uncomplicated; I25.10 Atherosclerotic heart disease of native coronary artery without angina pectoris; K76.0 Fatty (change of) liver, not elsewhere classified; E11.59 Type 2 diabetes mellitus with other circulatory complications; E78.5 Hyperlipidemia, unspecified; E04.2 Nontoxic multinodular goiter; E55.9 Vitamin D deficiency, unspecified

== ENCOUNTER 2024-08-13 11:20 | Inpatient (IN) ==
--- NOTE | 2024-08-13 11:45 | Emergency Department Note ---
Impression & Plan CVA (cerebral vascular accident), Weakness ED Provider Note NAME: DEVIN SUBRAMANIAN AGE: 84 SEX: F : 1940 ARRIVES VIA: Walk-In INFORMANT: Patient ED PROVIDER(S): Casa Buck DO CHIEF COMPLAINT: Weakness HPI: Patient is an 84-year-old female who presents to the ER with a past medical history of diabetes, permanent A-fib, CAD on apixaban who presents to the ER for weakness. She notes that weakness has been present for the past month. She denies any new weakness or numbness in the arms or legs. She notes that she has noticed over the past several days when she is writing her handwriting is smaller than usual but she is able to write her name and do everything that she normally would be able to do. Patient denies any headache or chest pain. No shortness of breath. No nausea, vomiting, or diarrhea. No dysuria, urgency, or frequency. No other exacerbating or remitting factors. ADDITIONAL HISTORY OBTAINED: Per HPI Chronic Medical/Social Conditions Affecting Care: Per HPI PAST MEDICAL HISTORY:See Below PAST SURGICAL HISTORY:See Below FAMILY HISTORY:See Below SOCIAL HISTORY:See Below HOME MEDICATIONS:See Below ALLERGIES:See Below VITALS:See Below PHYSICAL EXAMINATION: GENERAL: Sitting up in bed, alert, well appearing, well nourished, no distress, non-toxic EYE EXAM: normal conjunctiva. PERRL and EOM's grossly intact. OROPHARYNX: no exudate, no erythema, lips, buccal mucosa, and tongue normal and mucous membranes are moist NECK: supple, no nuchal rigidity, no adenopathy, non-tender LUNGS: Clear to auscultation. Normal chest wall mechanics HEART: no murmurs, S1 normal and S2 normal ABDOMEN: abdomen soft, non-tender, normo-active bowel sounds, no masses, no rebound or guarding. BACK: Back is symmetrical on inspection and there is no deformity, no midline tenderness, no CVA tenderness. SKIN: no rashes and no bruising UPPER EXTREMITIES: upper extremities are grossly normal. LOWER EXTREMITIES: No pitting edema. NEURO EXAM: Normal sensorium, cranial nerves II-XII intact, normal speech, no weakness of arms, no weakness of legs. No drift. Finger to nose intact. Gross sensation intact. MEDICAL DECISION MAKING: Patient is a 84-year-old female who presents to the ER for the above-stated complaint. IV was established and blood work was obtained. Labs show no significant leukocytosis or anemia. INR at 1.2. BMP was fairly unremarkable with exception of a slightly elevated glucose at 204. Mag was mildly low at 1.2. LFTs and bilirubin unremarkable. Troponin was negative. TSH unremarkable. UA was contaminated. She has no urinary symptoms. Will not treat at this time. CT shows a hypodensity and a questionable subacute stroke. Patient is not in the window for TNK. She has no focal deficit. She was discussed with the hospitalist for further evaluation management treatment. She was given aspirin while here in the ER. CT findings are new in comparison to the end of June. Consults/Care Managements Discussions: Per [facility] Triage Nursing notes reviewed. Limited review of prior medical records performed Vital Signs: reviewed and remarkable for HTN Differential diagnosis: Differential Diagnosis includes but is not limited to ischemic Stroke, hemorrhagic stroke, bells palsy, mass, neoplasm, migraine headache, seizure, subarachnoid hemorrhage, TIA, and transient global amnesia. ER treatment provided: See below Diagnostics interpreted by me include EKG and cardiac monitoring as listed below: -Cardiac Monitoring: An order was placed for continuous cardiac monitoring. The monitor shows a rate of 70 with Afib rhythm. -ECG: A-fib rate 80 Normal axis No PVCs QTc 452 -Laboratory studies:Interpreted by me as stated above in MDM and shown below. Imaging studies: Xrays: As interpreted by me: Portable AP upright 1 view of the chest shows no focal infiltrate CTs show: CT head per radiology shows a questionable stroke Procedures:none Critical Care: None Past Med/Surg History Problem List (Updated 08/13/24 @ 14:31 by Casa Buck DO) Weakness (Acute) CVA (cerebral vascular accident) (Acute) Fatigue (Acute) Urinary frequency (Acute) Weakness (Acute) Type 2 diabetes mellitus with hyperglycemia Permanent atrial fibrillation Pulmonary nodule Osteoarthritis Osteoporosis Hypertension (Chronic) Coronary artery calcification (~02/2021) Type 2 diabetes mellitus (Chronic) Dyslipidemia (Chronic) Insomnia (Acute) Vitamin D deficiency (Chronic ~06/18/23) Medical History Persistent atrial fibrillation Abnormal CT scan, esophagus Hot flash not due to menopause Basal cell carcinoma (BCC) Schatzki's ring Nontoxic multinodular goiter Interstitial lung disease Hepatic steatosis Gout Gastroesophageal reflux disease Allergic rhinitis Surgical History H/O total hysterectomy S/P tonsillectomy and adenoidectomy S/P FRANK-BSO Status post Mohs surgery S/P cataract surgery History of lung biopsy (~2016) H/O breast biopsy H/O: hemorrhoidectomy History of cholecystectomy Hx of appendectomy Family History Brother Myocardial infarction Father Alcoholism Atherosclerosis Cardiac disorder Diabetes Hypertension Mother Atherosclerosis Diabetes Hypertension Unknown COPD (chronic obstructive pulmonary disease) Denies family history of Ovarian cancer Prostate cancer Breast cancer Lung cancer Colorectal cancer Social History Smoking Status: Never smoker Second Hand Exposure: No; Do You Dip or Chew Tobacco: No; Hx Alcohol Use: No Hx Substance Use: No Preferred Language: Nigerien Communication Ability: Effective Visual Impairment: Limited Hearing Ability: Hard of Hearing marital status: Current Living Situation: Spouse Current Living Situation Comment: current occupational status: retired How many Children do You have: 2 Feels Safe at Home: Yes Childhood Exposure to Second-Hand Smoke: No Diet: regular caffeine: No during the past year weight has: remained stable Dental Care, Regularly: Yes Physical Activity Frequency: Does not Exercise Seatbelt Use: always Sunscreen Use: No (sometimes- does wear a hat and long sleeves ) Assistive Devices: Glasses Allergies Allergies Allergy/AdvReac Type Severity Reaction Status Date / Time cefaclor Allergy Intermediate RASH Verified 08/13/24 09:37 oxytetracycline Allergy Unknown UNSURE Verified 08/13/24 09:37 polymyxin B Allergy Unknown UNSURE Verified 08/13/24 09:37 metformin AdvReac Intermediate Diarrhea Verified 08/13/24 09:37 erythromycin base AdvReac Mild GI UPSET Verified 08/13/24 09:37 Sulfa (Sulfonamide AdvReac Mild N/V Verified 08/13/24 09:37 Antibiotics) Tetracyclines AdvReac Mild TERRAMYCIN- Verified 08/13/24 09:37 DIARRHEA ozempic AdvReac Intermediate Gastrointestinal Uncoded 08/13/24 09:37 Upset Home Meds Home Medications Medication Instructions Recorded Confirmed cholecalciferol (vitamin D3) 25 3,000 units PO DAILY #90 caps 02/09/19 08/13/24 mcg (1,000 unit) capsule acetaminophen 500 mg capsule 500 mg PO Q6H PRN Pain 06/12/23 08/13/24 Previous Rx's Medication Instructions Recorded apixaban 5 mg tablet (Eliquis) 5 mg PO BID #180 tabs 12/20/21 blood-glucose meter (Prodigy #1 ea 05/16/22 Autocode Meter kit) hydrocortisone 2.5 % topical cream 1 applic MS DAILY PRN hemorrhoids 12/03/22 with perineal applicator #30 grams (Proctozone-HC) metoprolol succinate 25 mg 25 mg PO BID #200 tabs 11/13/23 tablet,extended release 24 hr blood sugar diagnostic #300 ea 03/04/24 lancets 28 gauge (Prodigy Lancets) #300 ea 03/04/24 nifedipine 30 mg tablet,extended 30 mg PO DAILY #90 tabs 03/23/24 release metformin 500 mg tablet 500 mg PO DAILY #100 tabs 04/07/24 glimepiride 2 mg tablet 2 mg PO DAILY #90 tabs 05/18/24 pravastatin 20 mg tablet 20 mg PO DAILY #90 tabs 05/27/24 Results & Data (ED) Vital Signs Vital Signs - 24 hr 08/13/24 11:26 08/13/24 12:22 08/13/24 12:39 Temperature 36.8 C Temperature Source Temporal Artery Scan Pulse Rate 77 73 64 Pulse Rate from SpO2 Sensor Pulse Rhythm Irregular Respiratory Rate 18 16 Respiratory Effort / Characteristics Non-Labored Spontaneous Respiratory Depth Normal Respiratory Pattern Regular Blood Pressure 163/113 H Blood Pressure Mean 129 Pulse Oximetry 99 98 Oxygen Delivery Method Room Air Room Air Sepsis Recent Fever Within 48 Hours No Sepsis New/Unexplained Change in Mental Status No Sepsis Action Taken by Nursing No Action Required 08/13/24 13:06 Temperature Temperature Source Pulse Rate 72 Pulse Rate from SpO2 Sensor 78 Pulse Rhythm Respiratory Rate 21 Respiratory Effort / Characteristics Respiratory Depth Respiratory Pattern Blood Pressure 188/106 H Blood Pressure Mean 133 Pulse Oximetry 97 Oxygen Delivery Method Room Air Sepsis Recent Fever Within 48 Hours Sepsis New/Unexplained Change in Mental Status Sepsis Action Taken by Nursing Laboratory Data 08/13/24 11:40 08/13/24 11:40 Lab Results 08/13/24 08/13/24 08/13/24 Range/Units 11:40 11:46 13:00 WBC 6.22 (4.8-10.8) K/ul RBC 4.53 (4.20-5.40) M/uL Hgb 14.2 (12.0-16.0) g/dl POC Hgb 13.9 (12.0-16.0) g/dl Hct 40.7 (37.0-47.0) % POC Hct 41 (37-47) % MCV 89.8 (80.0-100.0) fL MCH 31.3 (25.0-34.0) pg MCHC 34.9 (32.0-36.0) g/dL RDW Std Deviation 40.9 (36.4-46.3) fL RDW Coeff of Dusty 12.4 (11.5-14.5) % Plt Count 176 (130-400) K/uL MPV 10.2 (9.4-12.4) fL Immature Gran % (Auto) 0.2 % Neut % (Auto) 62.1 % Lymph % (Auto) 29.9 % [place] % (Auto) 6.9 % Eos % (Auto) 0.6 % Baso % (Auto) 0.3 % Neut # (Auto) 3.86 (1.40-6.50) K/uL Lymph # (Auto) 1.86 (1.20-3.40) K/uL [place] # (Auto) 0.43 (0.11-0.59) K/uL Eos # (Auto) 0.04 (0.00-0.50) K/uL Baso # (Auto) 0.02 (0.00-0.20) K/uL Immature Gran # (Auto) 0.01 (0.01-0.20) K/uL PT 12.6 H (9.0-12.0) Seconds INR 1.2 H (0.9-1.1) APTT 30 (21-31) Seconds PTT Ratio 1.1 POC Sodium 141 (135-144) mmol/L Sodium 142 (136-145) mmol/L POC Potassium 3.6 (3.3-5.0) mmol/L Potassium 3.6 (3.5-5.1) mmol/L POC Chloride 103 (101-112) mmol/L Chloride 105 (98-107) mmol/L Carbon Dioxide 27 (21-32) mmol/L POC Total CO2 27 (24-31) mmol/L Anion Gap 10 (3-11) POC Anion Gap 15.0 L (16-25) mmol/L POC BUN 12 (7-18) mg/dl BUN 12 (6-23) mg/dl Creatinine 0.70 (0.6-1.2) mg/dl POC Creatinine 0.7 (0.6-1.3) mg/dl Est Cr Clr Drug Dosing Not Reportable eGFR 84.17 BUN/Creatinine Ratio 17.1 (10-20) Glucose 204 H (70-99(Fasting)) mg/dl POC Glucose (other) 203 H (70-99) mg/dl Calcium 10.0 (8.6-10.3) mg/dl POC Ioniz Calcium Leonardo 1.17 (1.12-1.32) mmol/l Magnesium 1.4 L (1.7-2.4) mg/dl Total Bilirubin 0.9 (0.2-1.0) mg/dl AST 23 (13-39) U/L ALT 16 (7-52) U/L Alkaline Phosphatase 48 (34-104) U/L Troponin I High Sens 3.4 (0-14) pg/ml Total Protein 7.6 (6.0-8.3) gm/dl Albumin 4.3 (3.4-5.0) gm/dl Globulin 3.3 (2.5-4.0) gm/dl Albumin/Globulin Ratio 1.3 (0.9-2) TSH 0.590 (0.300-4.500) uIu/ml Urine Color Dark Yellow Urine Appearance Clear (Clear) Urine pH 5.0 (4.5-7.5) Ur Specific [place] 1.023 (1.000-1.030) Urine Protein Negative (Negative) Urine Glucose (UA) Negative (Negative) Urine Ketones 1+ H (Negative) Urine Blood Negative (Negative) Urine Nitrite Negative (Negative) Urine Bilirubin Negative (Negative) Urine Urobilinogen Negative (Negative) Ur Leukocyte Esterase 1+ H (Negative) Urine WBC (Auto) 6-10 H (0-5) /hpf Urine RBC (Auto) 0-2 (0-2) /hpf U Hyaline Cast (Auto) 3-5 H (0-2) /lpf U Epithel Cells (Auto) 3-5 H (0-2) /hpf Urine Bacteria (Auto) None Seen (None Seen) Administered Medications Discontinued Medications Aspirin (Aspirin Chew 324 Mg) 81 mg PO NOW STA Stop: 08/13/24 13:15 Last Admin: 08/13/24 14:07 Dose: Not Given Documented By: GINNY Sodium Chloride (Nss) 1,000 mls @ 999 mls/hr IV .Q1H1M ONE Stop: 08/13/24 12:54 Last Admin: 08/13/24 12:04 Dose: 999 mls/hr Documented By: YAJAIRAO Imaging Data Radiologist's Impression: Chest X-Ray 08/13/24 11:31 XR chest 1V portable CLINICAL HISTORY: Weakness TECHNIQUE: Single frontal radiograph of the chest was obtained. Comparison: Comparison is made to chest radiograph 08/08/2024 FINDINGS: No lines and tubes are seen. Cardiomegaly is noted. The lungs are clear. No evidence of pleural effusion or pneumothorax. IMPRESSION: No acute chest disease. Cardiomegaly is noted. ACT 112: Negative or not required by law. Electronically signed by: Carlos Alberto Oro M.D. 08/13/2024 12:[address] 08/13/24 11:46 CT head/brain wo con CLINICAL HISTORY: weakness Technique: Contiguous axial CT images of the head were acquired from the base of the skull to the vertex without intravenous contrast administration. Images were viewed in brain, subdural and bone windows. Automated dose lowering techniques and/or adjustment according to patient size were utilized for this exam. Comparison: Comparison is made to CTA head 07/12/2024 Findings: Areas of decreased attenuation are present in the periventricular and subcortical white matter bilaterally consistent with small vessel ischemic disease. Generalized cerebral volume loss with commensurate enlargement of the ventricles, sulci, and cisterns is also present. There is a 6 mm hypodensity in the left periventricular white matter. Imaged portions of the paranasal sinuses and mastoid air cells are clear. The orbits appear normal. There are no acute fractures of the calvaria or scalp swelling. Impression: Left periventricular white matter hypodensity is new from prior exam and may represent an age-indeterminate infarct. Further evaluation can be performed by MRI. ACT 112: Negative or not required by law. Electronically signed by: Carlos Alberto Oro M.D. 08/13/2024 12:05 PM Discharge Plan Visit Data Chief Complaint: Weakness Stated Complaint: MRI REQ, WEAKNESS ED Provider: Casa Buck Discharge Problem: CVA (cerebral vascular accident), Weakness Forms Stand Alone Forms: My [facility] Prescriptions Prescriptions: No Action (DME) blood sugar diagnostic Strip See Rx Instructions .ROUTE .MEDSUPPLY Qty: 300 1RF Rx Instructions: TEST 3 TIMES DAILY. DX: E11.9 PRN (prodigy) (DME) lancets [Prodigy Lancets] 28 gauge misc See Rx Instructions .ROUTE .MEDSUPPLY Qty: 300 1RF Rx Instructions: TEST 3 TIMES DAILY DX: E11.9 PRN nifedipine 30 mg tablet extended release 30 mg PO DAILY Qty: 90 3RF glimepiride 2 mg tablet 2 mg PO DAILY Qty: 90 3RF cholecalciferol (vitamin D3) 1,000 unit capsule 3,000 units PO DAILY Qty: 90 Eliquis 5 mg tablet 5 mg PO BID Qty: 180 2RF hydrocortisone [Proctozone-HC] 2.5 % cream with perineal applicator 1 applic MS DAILY PRN (Reason: hemorrhoids) Qty: 30 1RF (DME) blood-glucose meter [InfoDif Autocode Meter] Kit See Dose Instructions .ROUTE .MEDSUPPLY Qty: 1 0RF Rx Instructions: Check once daily metoprolol succinate 25 mg tablet extended release 24 hr 25 mg PO BID Qty: 200 3RF metformin 500 mg tablet 500 mg PO DAILY Qty: 100 3RF pravastatin 20 mg tablet 20 mg PO DAILY Qty: 90 3RF acetaminophen 500 mg Capsule 500 mg PO Q6H PRN (Reason: Pain) Referrals Referrals: Claudette Brar MD [Primary Care Provider] - Discharge Problem: CVA (cerebral vascular accident) Qualifiers: CVA mechanism: unspecified Qualified Code(s): I63.9 - Cerebral infarction, unspecified
[2024-08-13 11:55] LABS: Basophils # (auto) 0.02 K/uL (0.00-0.20); Basophils % (auto) 0.3 %; Eosinophils # (auto) 0.04 K/uL (0.00-0.50); Eosinophils % (auto) 0.6 %; Hematocrit (blood only) 40.7 % (37.0-47.0); Hemoglobin 14.2 g/dl (12.0-16.0); Immature Granulocytes # (auto) 0.01 K/uL (0.01-0.20); Immature Granulocytes % (auto) 0.2 %; Lymphocytes # (auto) 1.86 K/uL (1.20-3.40); Lymphocytes % (auto) 29.9 %; Mean Corpuscular Hemoglobin 31.3 pg (25.0-34.0); Mean Corpuscular Hgb Conc 34.9 g/dL (32.0-36.0); Mean Corpuscular Volume 89.8 fL (80.0-100.0); Mean Platelet Volume 10.2 fL (9.4-12.4); Monocytes # (auto) 0.43 K/uL (0.11-0.59); Monocytes % (auto) 6.9 %; Neutrophils # (auto) 3.86 K/uL (1.40-6.50); Neutrophils % (auto) 62.1 %; Platelet Count 176 K/uL (130-400); RDW Coefficient of Variation 12.4 % (11.5-14.5); RDW Standard Deviation 40.9 fL (36.4-46.3); Red Blood Count 4.53 M/uL (4.20-5.40); White Blood Count 6.22 K/ul (4.8-10.8)
[2024-08-13 11:57] LABS: iSTAT Creatinine 0.7 mg/dl (0.6-1.3); iSTAT Hemoglobin 13.9 g/dl (12.0-16.0); iSTAT Ionized Calcium 1.17 mmol/l (1.12-1.32); iSTAT Potassium 3.6 mmol/L (3.3-5.0)
[2024-08-13] MEDS: SODIUM CHLORIDE 0.9% 1,000 ML IV ONE (12:04)
--- NOTE | 2024-08-13 12:07 | CT Scan Report ---
CT head/brain wo con CLINICAL HISTORY: weakness Technique: Contiguous axial CT images of the head were acquired from the base of the skull to the chelsi shanna without intravenous contrast administration. Images were viewed in brain, subdural and bone back[facility] hospital[facility] ws. Automated dose lowering techniques and/or adjustment according to patient size were utilized for this exam. Comparison: Comparison is made to CTA head 07/12/2024 Findings: Areas of decreased attenuation are present in the periventricular and subcortical white matter bilate rally consistent with small vessel ischemic disease. Generalized cerebral volume loss with commensura te enlargement of the ventricles, sulci, and cisterns is also present. There is a 6 mm hypodensity in the left periventricular white matter. Imaged portions of the paranasal sinuses and mastoid air cells are clear. The orbits appear normal. There are no acute fractures of the calvaria or scalp swelling. Impression: Left periventricular white matter hypodensity is new from prior exam and may represent an age-indeter minate infarct. Further evaluation can be performed by MRI. ACT 112: Negative or not required by law. Electronically signed by: Carlos Alberto Oro M.D. 08/13/2024 12:05 PM
[2024-08-13 12:12] LABS: Alanine Aminotransferase 16 U/L (7-52); Albumin Globulin Ratio 1.3 (0.9-2); Albumin Level 4.3 gm/dl (3.4-5.0); Alkaline Phosphatase 48 U/L (34-104); Anion Gap 10 (3-11); Aspartate Aminotransferase 23 U/L (13-39); BUN Creatinine Ratio 17.1 (10-20); Bilirubin,Total 0.9 mg/dl (0.2-1.0); Blood Urea Nitrogen 12 mg/dl (6-23); Carbon Dioxide 27 mmol/L (21-32); Chloride 105 mmol/L (98-107); Globulin 3.3 gm/dl (2.5-4.0); Glucose 204 mg/dl (70-99(Fasting)); Magnesium 1.4 mg/dl (1.7-2.4); Potassium 3.6 mmol/L (3.5-5.1); Sodium 142 mmol/L (136-145); Total Protein 7.6 gm/dl (6.0-8.3)
[2024-08-13 12:18] LABS: Troponin I High Sensitivity 3.4 pg/ml (0-14)
[2024-08-13 12:22] LABS: INR 1.2 (0.9-1.1); Partial Thromboplastin Ratio 1.1; Partial Thromboplastin Time 30 Seconds (21-31); Prothrombin Time 12.6 Seconds (9.0-12.0)
--- NOTE | 2024-08-13 12:30 | XRay Report ---
XR chest 1V portable CLINICAL HISTORY: Weakness TECHNIQUE: Single frontal radiograph of the chest was obtained. Comparison: Comparison is made to chest radiograph 08/08/2024 FINDINGS: No lines and tubes are seen. Cardiomegaly is noted. The lungs are clear. No evidence of pleural effus ion or pneumothorax. IMPRESSION: No acute chest disease. Cardiomegaly is noted. ACT 112: Negative or not required by law. Electronically signed by: Carlos Alberto Oro M.D. 08/13/2024 12:29 PM
[2024-08-13 13:36] LABS: Appearance Urine Clear (Clear); Bacteria Urine Automated None Seen (None Seen); Bilirubin Urine Negative (Negative); Blood Urine Negative (Negative); Color Urine Dark Yellow; Glucose Urine UA Negative (Negative); Ketones Urine 1+ (Negative); Leukocyte Esterase Urine 1+ (Negative); Nitrite Urine Negative (Negative); Protein Urine Negative (Negative); RBC Urine Automated 0-2 /hpf (0-2); Specific Gravity Urine 1.023 (1.000-1.030); Urobilinogen Urine Negative (Negative)
[2024-08-13] MEDS: ASPIRIN CHEW 324 MG PO STA (14:07)
[2024-08-13] MEDS: ASPIRIN 81 MG CHEW PO STA (14:37)
--- NOTE | 2024-08-13 14:37 | History & Physical Report ---
Date of Service August 13, 2024 Assessment & Plan (1) Weakness: (2) Type 2 diabetes mellitus with hyperglycemia: (3) Permanent atrial fibrillation: (4) Hypertension: (5) Dyslipidemia: (6) Stroke-like symptoms: Plan Patient is an 84-year-old female with past medical history of permanent atrial fibrillation (on Eliquis), hypertension, hyperlipidemia, diabetes mellitus type 2, CAD, osteoarthritis, osteoporosis, and pulmonary nodule who arrived to the emergency department due to 1 month of slowly progressing weakness. Stroke-like symptoms - Patient with hx of transient black spots in her vision w/ associated weakness, and yesterday-today experienced RUE and RLE weakness that has resolved since then - Patient also w/ hx of poorly controlled DM, HTN, and recent increase in Pravastatin dose - Head CT with left periventricular white matter hypodensity that is new from prior exam and may represent an age-indeterminate infarct - DDx of TIA versus CVA versus HTN induced sxs given elevated BP at time of admission versus pre-existing weakness - Will order Head CTA and Brain MRI to characterize - TTE ordered - Ordered lipid profile, Hgb A1c - Continue ASA 81mg, change Pravastatin to Rosuvastatin 20 mg - PT/OT consulted - Speech consulted - Admit to PCU/Tele Weakness - Slowly progressive weakness that has lead her to go to the ED previously - Will order PT/OT to evaluate Hypomagnesemia - Level in ED was 1.4, which is similar to previous levels - Will order Magnesium oxide 400 mg bid - Encourage PO intake Asymptomatic UTI - U/A with leukocyte esterase but no nitrites/bacteria - Patient denies dysuria or urinary frequency or other sxs. - Hold off from abx for now HTN - BP elevated at time of admission, however, patient did not take her medications this morning - Continue home Nifedipine DM-2 - Hgb A1c from 04/2024 was 8.9% - Repeat Hgb A1c pending - Lantus and SSI ordered Permanent atrial fibrillation - Continue Metoprolol and Eliquis Dispo: PCU/Tele Diet: NPO; hold until Speech eval VTE ppx: Eliquis Code Status: FULL; patient and her state that she would not like to be on a ventilator if her chances of getting off are low Admission and Anticipated Discharge Date Admission Date: ATTESTATION I also saw the patient and confirmed iverson portions of the history and exam. I agree with the impression and plan in the resident documentation, and as summarized below. No complaints at present other than generalized weakness. When I clarified the history, the check writing difficulties (my handwriting was really small) happened yesterday and the inability to raise the RLE to clear the obstruction was today. BP elevated in the ED although she notes that she has not taken her daily medications yet. EXAM 111/68, 68, 20 Alert and oriented. Speech is clear. CV I/I Lungs clear with non labored respirations Screening Representative strength symmetrical; LE strength symmetrical has well, although mild weakness DATA Labs CBC and CMP unremarkable Slightly low Mg Imaging Head CT today shows left periventricular white matter hypodensity, new from prior exam and may represent an age-indeterminate infarct. IMPRESSION & PLAN Progressive, generalized weakness Focal neuromotor deficits now resolved upon exam Abnormal Head CT, MRI pending MRI Brain Replete Mg Resume home BP medications PT/OT Additional per resident documentation History of Present Illness Chief Complaint: Weakness Primary Care Provider: Claudette Brar MD Patient is an 84-year-old female with past medical history of permanent atrial fibrillation (on Eliquis), hypertension, hyperlipidemia, diabetes mellitus type 2, CAD, osteoarthritis, osteoporosis, and pulmonary nodule who arrived to the emergency department due to 1 month of slowly progressing weakness. Patient states that she was seen by the emergency department 2 times since mid June, the first due to an episode of black spots in her vision with associated increased weakness that quickly resolved, and the second episode being due to a fall earlier this month. Today she notes that she noted weakness in her right upper extremity yesterday when she was trying to write a check, as well as right lower extremity weakness when she was trying to lift her foot to stand on the sidewalk. Patient's who was at bedside denies any increasing confusion at home. Patient states that on occasion, she does forget to take her medications for management of her chronic illnesses. On chart review, patient was following up with primary care provider due to poorly controlled diabetes with blood sugar readings ranging between 160 and 230. Was also seen on 08/10/2024 for ED follow- up after recent visit on 08/08/2024 for similar concerns as current admission. At this time, patient was complaining of lightheadedness/weakness and also some imbalance. At this time, patient had some labs done which showed hypomagnesemia of 1.4, but all other labs unremarkable. ED had offered patient transfer for an inpatient rehab facility, to which patient responded "oh no, I do not need that" saying that she gets around her home okay, and was therefore discharged. ED Course: Patient given ASA 81 mg and a NSS 1L bolus Labs/Imaging: CBC without leukocytosis, hemoglobin of 14.2, hematocrit of 40.7, platelets of 176. CMP without significant electrolyte abnormalities, creatinine at 0.70, and elevated blood sugar of 2 4. Hypomagnesemia 1.4, LFTs unremarkable, troponins negative, TSH of 0.590. U/A with 1+ leukocyte esterase but no nitrites or bacteria noted. Chest x-ray unremarkable. Head CT with left periventricular white matter hypodensity that is new from prior exam and may represent an age-indeterminate infarct. Medical History: [Reviewed] Medications: [Reviewed] Surgical History: [Reviewed] Family history: [Reviewed] Allergies: [Reviewed] Social History: [Reviewed] Allergies Allergy/AdvReac Type Severity Reaction Status Date / Time cefaclor Allergy Intermediate RASH Verified 08/13/24 09:37 oxytetracycline Allergy Unknown UNSURE Verified 08/13/24 09:37 polymyxin B Allergy Unknown UNSURE Verified 08/13/24 09:37 metformin AdvReac Intermediate Diarrhea Verified 08/13/24 09:37 erythromycin base AdvReac Mild GI UPSET Verified 08/13/24 09:37 Sulfa (Sulfonamide AdvReac Mild N/V Verified 08/13/24 09:37 Antibiotics) Tetracyclines AdvReac Mild TERRAMYCIN- Verified 08/13/24 09:37 DIARRHEA ozempic AdvReac Intermediate Gastrointestinal Uncoded 08/13/24 09:37 Upset Home Medications Medication Instructions Recorded Confirmed Type cholecalciferol (vitamin D3) 25 3,000 units PO DAILY #90 caps 02/09/19 08/13/24 History mcg (1,000 unit) capsule apixaban 5 mg tablet (Eliquis) 5 mg PO BID #180 tabs 12/20/21 08/13/24 Rx blood-glucose meter (Prodigy #1 ea 05/16/22 08/13/24 Rx Autocode Meter kit) hydrocortisone 2.5 % topical cream 1 applic [place] DAILY PRN hemorrhoids 12/03/22 08/13/24 Rx with perineal applicator #30 grams (Proctozone-HC) acetaminophen 500 mg capsule 500 mg PO Q6H PRN Pain 06/12/23 08/13/24 History metoprolol succinate 25 mg 25 mg PO BID #200 tabs 11/13/23 08/13/24 Rx tablet,extended release 24 hr blood sugar diagnostic #300 ea 03/04/24 08/13/24 Rx lancets 28 gauge (Prodigy Lancets) #300 ea 03/04/24 08/13/24 Rx nifedipine 30 mg tablet,extended 30 mg PO DAILY #90 tabs 03/23/24 08/13/24 Rx release metformin 500 mg tablet 500 mg PO DAILY #100 tabs 04/07/24 08/13/24 Rx glimepiride 2 mg tablet 2 mg PO DAILY #90 tabs 05/18/24 08/13/24 Rx pravastatin 20 mg tablet 20 mg PO DAILY #90 tabs 05/27/24 08/13/24 Rx Past Med/Surg History Problem List Stroke-like symptoms Weakness (Acute) CVA (cerebral vascular accident) (Acute) Fatigue (Acute) Urinary frequency (Acute) Weakness (Acute) Type 2 diabetes mellitus with hyperglycemia Permanent atrial fibrillation Pulmonary nodule Osteoarthritis Osteoporosis Hypertension (Chronic) Coronary artery calcification (~02/2021) Type 2 diabetes mellitus (Chronic) Dyslipidemia (Chronic) Insomnia (Acute) Vitamin D deficiency (Chronic ~06/18/23) Medical History Persistent atrial fibrillation Abnormal CT scan, esophagus Hot flash not due to menopause Basal cell carcinoma (BCC) Schatzki's ring Nontoxic multinodular goiter Interstitial lung disease Hepatic steatosis Gout Gastroesophageal reflux disease Allergic rhinitis Surgical History H/O total hysterectomy S/P tonsillectomy and adenoidectomy S/P FRANK-BSO Status post Mohs surgery S/P cataract surgery History of lung biopsy (~2016) H/O breast biopsy H/O: hemorrhoidectomy History of cholecystectomy Hx of appendectomy Family History Brother Myocardial infarction Father Alcoholism Atherosclerosis Cardiac disorder Diabetes Hypertension Mother Atherosclerosis Diabetes Hypertension Unknown COPD (chronic obstructive pulmonary disease) Denies family history of Ovarian cancer Prostate cancer Breast cancer Lung cancer Colorectal cancer Social History (Updated 08/13/24 @ 16:23 by Viky Chiang RN) Smoking Status: Never smoker Second Hand Exposure: No; Do You Dip or Chew Tobacco: No; Tobacco Cessation Education Requested by Patient: No Hx Alcohol Use: No Hx Substance Use: No Preferred Language: Tanzanian Communication Ability: Effective Visual Impairment: Limited Hearing Ability: Hard of Hearing Child Care Specialist Required: No Beliefs That Will Affect Care: None marital status: Current Living Situation: Spouse Current Living Situation Comment: current occupational status: retired How many Children do You have: 2 Other Information That Helps Us Care for You: No Feels Safe at Home: Yes Safety Concerns: Feels Safe At This Time Childhood Exposure to Second-Hand Smoke: No Diet: regular caffeine: No during the past year weight has: remained stable Dental Care, Regularly: Yes Physical Activity Frequency: Does not Exercise Seatbelt Use: always Sunscreen Use: No (sometimes- does wear a hat and long sleeves ) Assistive Devices: Cane Review of Systems Review of Systems: As per HPI Physical Exam Physical Exam: GENERAL: Awake alert and oriented in all spheres, afebrile, no acute distress HEAD: Atraumatic and normocephalic EYES: Noninjected conjunctiva, PERRL, EOM intact THROAT: Normal to visual inspection CHEST: Symmetric chest rises with respirations CARDIO: Irregular rhythm, no rubs murmurs or gallops appreciated PULMONARY: Clear to auscultation bilaterally, normal respiratory effort, no respiratory distress GI: Soft, nontender, nondistended : No [place] EXTREMITIES: No swelling in bilateral lower extremities, no calf tenderness bilaterally NEURO: Awake and alert and oriented in all spheres, normal speech, PERRL, no weakness noted in facial muscles, 4/5 strength in bilateral upper and lower extremities, symmetric special services agent strength bilateral hands, normal sensation, central orientation with tongue protrusion Results & Data Results & Data Vital Signs (Past 12 Hours) Vital Signs Temp Pulse Resp BP Pulse Ox O2 Del Method 08/13/24 13:06 72 21 188/106 H 97 Room Air 08/13/24 12:39 64 08/13/24 12:22 73 16 98 Room Air 08/13/24 11:26 36.8 C 77 18 163/113 H 99 Room Air Resident Activity Tracking Resident Involvement: Resident Care Provided Care Provided: Adult Hospital Medicine (2) Type 2 diabetes mellitus with hyperglycemia Diabetes mellitus buttermaker insulin use: without correction use Qualified Code(s): E11.65 - Type 2 diabetes mellitus with hyperglycemia (4) Hypertension Hypertension type: primary hypertension Qualified Code(s): I10 - Essential (primary) hypertension
--- NOTE | 2024-08-13 15:59 | Electrocardiogram Report ---
Test Reason : Blood Pressure : */* mmHG Vent. Rate : 80 BPM Atrial Rate : * BPM P-R Int : * ms QRS Dur : 84 ms QT Int : 392 ms P-R-T Axes : * -12 -13 degrees QTcB Int : 452 ms Atrial fibrillation possible Inferior infarct , age undetermined Abnormal ECG Confirmed by Candelario London ([id number]) on 08/13/2024 3:59:39 PM Referred By: Confirmed By: Candelario London
[2024-08-13] MEDS ORDERED: PHARMACIST DISCHARGE MED REC CONSULT PRN (16:06)
[2024-08-13] MEDS ORDERED: DEXTROSE 50% 50 ML SYRINGE IV PRN (16:06)
[2024-08-13] MEDS ORDERED: GLUCOSE 10 TAB/TUBE PO PRN (16:06)
[2024-08-13] MEDS ORDERED: CARBOHYDRATES FOR HYPOGLYCEMIA PO PRN (16:06)
[2024-08-13] MEDS ORDERED: GLUCAGON FOR INJ 1 MG VIAL SQ PRN (16:06)
[2024-08-13] MEDS ORDERED: GLUCOSE 40% GEL 15 GM TUBE PO PRN (16:06)
[2024-08-13] MEDS ORDERED: POLYETHYLENE (MIRALAX) 17 GM PACK PO PRN (16:06)
[2024-08-13] MEDS: Patient's HEIGHT &/or WEIGHT Needed SCH (16:28)
[2024-08-13] MEDS: OPTIRAY 320 125ml IV ONE (17:53)
[2024-08-13] MEDS: INSULIN ASPART PER UNIT CHARGE SC SCH (18:04)
--- NOTE | 2024-08-13 18:59 | CT Scan Report ---
EXAM: CT angio neck with con CLINICAL HISTORY: Stroke-like symptoms. TECHNIQUE: CT angiography study of the neck vessels with IV contrast was performed and multiple axial sections were obtained with coronal and sagittal reconstructions. 119 ml of Optiray 320 was administered. One of the following dose reduction techniques was utilized for this exam: Automated exposure control, adjustment of the mA and/or kV according to patient size, and use of iterative reconstruction. One of these 3D techniques was utilized: Maximum Intensity Pixel (MIP), 3D Reconstructed Images, Volume Rendered Images, Surface Shaded Rendering. DLP: 360.13 mGy-m, CTDI: 31.1 mGy, COMPARISON: None. FINDINGS: Carotid Arteries: Common carotid arteries, internal carotid arteries, and external carotid arteries bilaterally are well-opacified. No evidence of significant stenosis, occlusion, or aneurysm. Vascular calcification of the aortic arch, carotid bulbs, and proximal internal carotid arteries as well as the cavernous segments of both internal carotid arteries. Vertebral Arteries: The left vertebral artery arises directly from the aortic arch [normal variant]. It shows attenuation of its whole course. Dominant right vertebral artery. No evidence of significant stenosis, occlusion, or aneurysm. Tiny vascular calcification of the origin of the right vertebral artery. Jugular Veins: Normal opacification of the internal and external jugular veins bilaterally. No evidence of thrombosis or compression. Subclavian Arteries: Subclavian arteries bilaterally are well-opacified. No evidence of significant stenosis, occlusion, or aneurysm. Small vascular calcifications are noted. Thyroid Gland: Enlargement of thyroid gland showing multiple variable-sized nodules measuring up to one 3.5 cm at the left lobe. Soft Tissues: Normal appearance of the surrounding soft tissues of the neck. No abnormal masses or lymphadenopathy. Cervical Spine: Spine degenerative changes. IMPRESSION: 1. Scattered vascular calcifications as described with no hemodynamically significant stenotic segments. No dissection or aneurysmal dilatation. 2. Attenuated left vertebral artery arising from the aortic arch with dominant right vertebral artery. Electronically signed by Peter Mcdonnell 08-13-2024 6:58 PM
--- NOTE | 2024-08-13 19:02 | CT Scan Report ---
EXAM: CT angio head w con CLINICAL HISTORY: Stroke-like symptoms. TECHNIQUE: CT angiography of the head was performed following the intravenous administration of iodinated contrast material. Contiguous axial images were obtained from the base of the skull to the vertex. Coronal and sagittal reformatted images were also reviewed. 119 ml of Optiray 320 was administered intravenously. One of these 3D techniques was utilized: Maximum Intensity Pixel (MIP), 3D Reconstructed Images, Volume Rendered Images, Surface Shaded Rendering. One of the following dose-reduction techniques was utilized for this exam. Automated exposure control, adjustment of the mA and/or kV according to patient size, and use of iterative reconstruction. DLP: 360.13 mGy-m, CTDI: 31.1 mGy, COMPARISON: CT And MR studies on the same day were reviewed. FINDINGS: Intracranial Arteries: The intracranial arteries, including the anterior cerebral arteries, middle cerebral arteries, posterior cerebral arteries, basilar artery, and vertebral arteries, are all patent without evidence of significant stenosis, aneurysm, or dissection. Vascular calcification of the intracranial segments of the carotid arteries bilaterally with no hemodynamically significant stenosis. [place] of [place]: Absent A1 segment of the right anterior cerebral artery. origin of the left posterior cerebral artery.Dominant right vertebral artery. Venous System: The visualized portions of the venous system, including the dural venous sinuses, are patent with no evidence of thrombosis. Brain Parenchyma: Involutional brain changes. Bones: The bony structures of the skull are intact without evidence of fracture or destructive lesions. Soft Tissues: The visualized soft tissues of the head are unremarkable. Additional Findings: No other significant findings are noted. IMPRESSION: 1. Absent A1 segment of the right anterior cerebral artery, origin of the left posterior cerebral artery, and dominant right vertebral artery, normal variants. 2. Vascular calcification of the intracranial segments of the internal carotid arteries. 3. No hemodynamically significant stenotic segments, dissection, or aneurysm greater than 4 mm. Electronically signed by Peter Mcdonnell 08-13-2024 7:02 PM
--- NOTE | 2024-08-13 19:34 | Magnetic Resonance Report ---
EXAM: MR brain wo con CLINICAL HISTORY: RECENT FALL 07/29/24 WEAKNESS AND DIZZINESS X 1 MONTH TECHNIQUE: Different pulse sequences were performed in different planes for the brain without GD-DTPA injection. Images were sent through PACs for interpretation. COMPARISON: CT cerebral angiography dated the same daywas reviewed. FINDINGS: Subacute infarction is seen at the left periventricular region, exhibiting bright signals on DWI, T2, and FLAIR WI.dark signals on DWI. Late subacute to chronic infarction is seen at the right periventricular region, exhibiting faint bright signals on DWI T2 and FLAIR WI. Altered deep white matter signals are seen at the forceps minor, forceps major, periventricular, and centrum semiovale regions. These exhibit bright signals on T2 and FLAIR WI and intermediate signals on T1 WI. Findings suggest consequences of small vessel disease, e.g., hypertensive and/or diabetic vasculopathy. Age-appropriate degenerative involutional changes are denoted by symmetrical dilatation of the ventricular system, prominent cortical sulci, Sylvian fissures, cerebellar, vermian folia, and basal cisterns. Normal MRI appearance of the cerebellar parenchymal signals. Normal MRI appearance of the central slater matter aggregates. Normal MRI appearance of different anatomical parts of the brain stem, namely the midbrain, sil, and medulla oblongata. Normal MRI appearance of the petrous temporal bones, brainstem, vestibule cochlear nerves, and cerebellopontine angles with no definite masses. No shift of midline structures. No intracerebral or extra-axial hematomas or masses. Normal MRI appearance of orbital structures, both globes, optic nerves, optic chiasm, optic tracts, and optic radiations. The scanned paranasal sinuses are unremarkable. Cavum velum interpositum (Normal variant). Bilateral cataract surgery. IMPRESSION: 1. Subacute infarction is seen at the left periventricular region, exhibiting bright signals on DWI, T2, and FLAIR WI.dark signals on DWI. 2. Late subacute to chronic infarction is seen at the right periventricular region, exhibiting faint bright signals on DWI T2 and FLAIR WI. 3. Altered deep white matter signals with anatomical distribution and imaging features consistent with the consequences of small vessel disease, e.g., hypertensive and/or diabetic vasculopathy. ([place], grade 2). 4. Age-appropriate degenerative involutional changes. 5. Cavum velum interpositum (Normal variant). 6. The comparison matches the CT findings. 7. The reported findings explain the current clinical status. [facility] was called at [phone] at 06:27 PM [employer] INSTRUCTOR, 08/13/2024, and Nurse Anthony was informed regarding the presence of critical medical findings in the reports. Electronically signed by Peter Mcdonnell 08-13-2024 7:33 PM
[2024-08-13] MEDS: METOPROLOL SUCC 25MG EXT REL TAB PO SCH (20:37)
[2024-08-13] MEDS: LANTUS PER UNIT CHARGE SQ SCH (20:37)
[2024-08-13] MEDS: MAGNESIUM OXIDE 400 MG TAB PO SCH (20:37)
[2024-08-13] MEDS: APIXABAN 5 MG TABLET PO SCH (20:38)
[2024-08-14 06:20] LABS: Basophils # (auto) 0.02 K/uL (0.00-0.20); Basophils % (auto) 0.5 %; Eosinophils # (auto) 0.06 K/uL (0.00-0.50); Eosinophils % (auto) 1.4 %; Immature Granulocytes # (auto) 0.01 K/uL (0.01-0.20); Immature Granulocytes % (auto) 0.2 %; Lymphocytes # (auto) 1.39 K/uL (1.20-3.40); Lymphocytes % (auto) 31.3 %; Mean Corpuscular Hemoglobin 32.3 pg (25.0-34.0); Mean Corpuscular Hgb Conc 36.1 g/dL (32.0-36.0); Mean Corpuscular Volume 89.3 fL (80.0-100.0); Mean Platelet Volume 10.3 fL (9.4-12.4); Monocytes # (auto) 0.44 K/uL (0.11-0.59); Monocytes % (auto) 9.9 %; Neutrophils # (auto) 2.52 K/uL (1.40-6.50); Neutrophils % (auto) 56.7 %; Platelet Count 145 K/uL (130-400); RDW Coefficient of Variation 12.3 % (11.5-14.5); RDW Standard Deviation 40.6 fL (36.4-46.3); Red Blood Count 4.03 M/uL (4.20-5.40); White Blood Count 4.44 K/ul (4.8-10.8)
[2024-08-14 06:38] LABS: BUN Creatinine Ratio 17.2 (10-20); Calcium 9.1 mg/dl (8.6-10.3); Chol HDL Ratio 4.3 (0-5); Creatinine Clr Calc Pharmacy 65.5 ml/min; Magnesium 1.5 mg/dl (1.7-2.4); Potassium 3.1 mmol/L (3.5-5.1)
--- NOTE | 2024-08-14 07:02 | Hospitalist Progress Note ---
Date of Service August 14, 2024 Assessment & Plan (1) Weakness: (2) Type 2 diabetes mellitus with hyperglycemia: (3) Permanent atrial fibrillation: (4) Hypertension: (5) Dyslipidemia: (6) Stroke-like symptoms: Plan Patient is an 84-year-old female with past medical history of permanent atrial fibrillation (on Eliquis), hypertension, hyperlipidemia, diabetes mellitus type 2, CAD, osteoarthritis, osteoporosis, and pulmonary nodule who arrived to the emergency department due to 1 month of slowly progressing weakness. L periventricular stroke, subacute - Patient with hx of transient black spots in her vision w/ associated weakness, and yesterday-today experienced RUE and RLE weakness that has resolved since then - Patient also w/ hx of poorly controlled DM, HTN, and recent increase in Pravastatin dose - Head CT with left periventricular white matter hypodensity that is new from prior exam and may represent an age-indeterminate infarct - Head CTA; "absent A1 segment of the R anterior cerebral artery, vascular calcifications of the intracranial segments of the ICA - Neck CTA; enlarged thyroid with multiple nodules up to 3.5 cm, scattered vascular calcifications without significant stenosis, TSH 12/27; 0.59 - brain MRI showed subacute L periventricular region infarct, late subacute R periventricular region infarct, small vessel disease - TTE; EF 55-60%, normal LV function - HA1c: 7.8% - speech consulted: no need for WARD AIDE therapy - PT/OT consulted; pending - pt is on eliquis baseline, will do plavix over aspirin for antiplatelet therapy, continue statin Weakness - Slowly progressive weakness that has lead her to go to the ED previously - Will order PT/OT to evaluate Hypomagnesemia - Level in ED was 1.4, which is similar to previous levels - Will order Magnesium oxide 400 mg bid - Encourage PO intake - will do 1 g mag today as well Asymptomatic UTI - U/A with leukocyte esterase but no nitrites/bacteria - Patient denies dysuria or urinary frequency or other sxs. - Hold off from abx for now HTN - BP elevated at time of admission, however, patient did not take her medications this morning - Continue home Nifedipine DM-2 - Hgb A1c from 04/2024 was 8.9% - Repeat Hgb A1c pending - Lantus and SSI ordered Permanent atrial fibrillation - Continue Metoprolol and Eliquis VTE ppx: Eliquis Code Status: FULL; patient and her state that she would not like to be on a ventilator if her chances of getting off are low Admission and Anticipated Discharge Date Admission Date: August 13, 2024 Supervising Physician Co-Signing Physician Notes ATTESTATION I also saw the patient and confirmed iverson portions of the history and exam. I agree with the impression and plan in the resident documentation, and as summarized below. This morning she is seen in her 2S room. She has no new complaints; still notes feeling weak all over. The localized symptoms she had noted prior to admission have resolved. EXAM 138/80, 69, 36.4, 96% Alert and oriented. Speech is clear. CV irregularly irregular consistent with rate controlled a-fib Lungs clear with non labored respirations Civil Defense Director strength symmetrical; LE strength symmetrical has well, although mild weakness globally DATA Labs potassium 3.1 Mg = 1.5 A1c = 7.8% LDL = 71, HDL 32 Imaging MRI from last evening 1. Subacute infarction is seen at the left periventricular region, exhibiting bright signals on DWI, T2, and FLAIR WI.dark signals on DWI. 2. Late subacute to chronic infarction is seen at the right periventricular region, exhibiting faint bright signals on DWI T2 and FLAIR WI. 3. Altered deep white matter signals with anatomical distribution and imaging features consistent with the consequences of small vessel disease, e.g., hypertensive and/or diabetic vasculopathy. (Fazekas, grade 2). 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 She states she is overall feeling okay but just feels generalized weakness in her arms and legs that has been an issue the last few weeks. No chest pain or SOB. No nausea or vomiting. Review of Systems Review of Systems: Per HPI. Physical Exam Physical Exam: General:Alert and oriented, no acute distress, HEENT: Normocephalic, moist oral mucosa, Cardio: Pt currently in atrial fibrillation on exam, rate in the 80s Resp:Lungs clear to auscultation b/l, no wheezes or rhonchi, GI: Soft and nontender, nondistended, bowel sounds active Skin: Warm, pink, dry, Neuro: Generalized strength weakness 4/5 that is symmetric in arms and legs bilaterally Results & Data Results & Data Vital Signs (Past 12 Hours) Vital Signs Temp Pulse Pulse Resp BP BP Pulse Ox 08/14/24 03:50 36.3 C L 78 16 154/79 H 95 08/13/24 22:38 36.8 C 72 18 149/92 H 97 08/13/24 22:15 74 08/13/24 19:34 36.3 C L 83 18 148/90 H 97 O2 Del Method 08/14/24 03:50 Room Air 08/13/24 22:38 Room Air 08/13/24 22:15 08/13/24 19:34 Room Air Resident Activity Tracking Resident Involvement: Resident Care Provided Care Provided: Adult Hospital Medicine (2) Type 2 diabetes mellitus with hyperglycemia Diabetes mellitus retirement insulin use: without retirement use Qualified Code(s): E11.65 - Type 2 diabetes mellitus with hyperglycemia (4) Hypertension Hypertension type: primary hypertension Qualified Code(s): I10 - Essential (primary) hypertension
[2024-08-14 07:10] LABS: Estimated Average Glucose 177 mg/dl; Hemoglobin A1C 7.8 % (4.5-5.6)
[2024-08-14] MEDS: ROSUVASTATIN CALCIUM 20 MG TAB PO SCH (08:17)
[2024-08-14] MEDS: NIFEdipine EXTENDED REL 30 MG TABCR PO SCH (08:17)
[2024-08-14] MEDS: POTASSIUM CHLORIDE CRTAB 20 MEQ TABCR PO STA ×2 (14:30)
[2024-08-14] MEDS: CLOPIDOGREL BISULFATE 75 MG TAB PO SCH (17:00)
[2024-08-14] MEDS: MAGNESIUM SULFATE / D5W 1 GM/100 ML BAG IV ONE (17:34)
[2024-08-14] MEDS: ACETAMINOPHEN 325 MG TAB PO PRN (18:35)
[2024-08-15 06:33] LABS: Basophils # (auto) 0.01 K/uL (0.00-0.20); Basophils % (auto) 0.2 %; Eosinophils # (auto) 0.08 K/uL (0.00-0.50); Eosinophils % (auto) 1.9 %; Hematocrit (blood only) 34.4 % (37.0-47.0); Hemoglobin 12.1 g/dl (12.0-16.0); Lymphocytes # (auto) 1.71 K/uL (1.20-3.40); Lymphocytes % (auto) 40.8 %; Mean Corpuscular Hemoglobin 31.8 pg (25.0-34.0); Mean Corpuscular Hgb Conc 35.2 g/dL (32.0-36.0); Mean Corpuscular Volume 90.5 fL (80.0-100.0); Mean Platelet Volume 10.4 fL (9.4-12.4); Monocytes # (auto) 0.36 K/uL (0.11-0.59); Monocytes % (auto) 8.6 %; Neutrophils # (auto) 2.03 K/uL (1.40-6.50); Neutrophils % (auto) 48.5 %; Platelet Count 138 K/uL (130-400); RDW Coefficient of Variation 12.6 % (11.5-14.5); RDW Standard Deviation 41.2 fL (36.4-46.3); White Blood Count 4.19 K/ul (4.8-10.8)
[2024-08-15 06:46] LABS: BUN Creatinine Ratio 27.9 (10-20); Calcium 9.2 mg/dl (8.6-10.3); Creatinine Clr Calc Pharmacy 56.1 ml/min; Potassium 3.8 mmol/L (3.5-5.1)
--- NOTE | 2024-08-15 08:21 | Hospitalist Progress Note ---
Date of Service August 15, 2024 Assessment & Plan (1) Weakness: (2) Type 2 diabetes mellitus with hyperglycemia: (3) Permanent atrial fibrillation: (4) Hypertension: (5) Dyslipidemia: (6) Stroke-like symptoms: Plan Patient is an 84-year-old female with past medical history of permanent atrial fibrillation (on Eliquis), hypertension, hyperlipidemia, diabetes mellitus type 2, CAD, osteoarthritis, osteoporosis, and pulmonary nodule who arrived to the emergency department due to 1 month of slowly progressing weakness. L periventricular stroke, subacute - Patient with hx of transient black spots in her vision w/ associated weakness, and yesterday-today experienced RUE and RLE weakness that has resolved since then - Patient also w/ hx of poorly controlled DM, HTN, and recent increase in Pravastatin dose - Head CT with left periventricular white matter hypodensity that is new from prior exam and may represent an age-indeterminate infarct - Head CTA; "absent A1 segment of the R anterior cerebral artery, vascular calcifications of the intracranial segments of the ICA - Neck CTA; enlarged thyroid with multiple nodules up to 3.5 cm, scattered vascular calcifications without significant stenosis, TSH 12/27; 0.59 - brain MRI showed subacute L periventricular region infarct, late subacute R periventricular region infarct, small vessel disease - TTE; EF 55-60%, normal LV function - HA1c: 7.8% - speech consulted: no need for BRAKE SPECIALIST therapy - PT/OT consulted; pending for ultimate dispo planning - pt is on eliquis baseline, will do plavix over aspirin for antiplatelet therapy, continue statin Weakness - Slowly progressive weakness that has lead her to go to the ED previously - PT/OT to evaluate Hypomagnesemia - Level in ED was 1.4, which is similar to previous levels - Will order Magnesium oxide 400 mg bid - Encourage PO intake - recheck tomorrow am Asymptomatic UTI - U/A with leukocyte esterase but no nitrites/bacteria - Patient denies dysuria or urinary frequency or other sxs. - Hold off from abx for now HTN - BP elevated at time of admission, however, patient did not take her medications this morning - Continue home Nifedipine DM-2 - Hgb A1c from 04/2024 was 8.9% - Repeat Hgb A1c pending - Lantus and SSI ordered Permanent atrial fibrillation - Continue Metoprolol and Eliquis VTE ppx: Eliquis Code Status: FULL; patient and her state that she would not like to be on a ventilator if her chances of getting off are low Admission and Anticipated Discharge Date Admission Date: August 13, 2024 Supervising Physician Co-Signing Physician Notes ATTESTATION I also saw the patient and confirmed iverson portions of the history and exam. I agree with the impression and plan in the resident documentation, and as summarized below. This morning she is seen in her 2S room. Daughter visiting from [place] is at bedside. Patient without no new complaints; still notes feeling weak all over. T EXAM 130/76, 72, 19, 94% Alert and oriented. Speech is clear. 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 Subacute infarction is seen at the left periventricular region, exhibiting bright signals on DWI, T2, and FLAIR WI.dark signals on DWI. 2. Late subacute to chronic infarction is seen at the right periventricular region, exhibiting faint bright signals on DWI T2 and FLAIR WI. 3. Altered deep white matter signals with anatomical distribution and imaging features consistent with the consequences of small vessel disease, e.g., hypertensive and/or diabetic vasculopathy. (Fazekas, grade 2). 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 Her daughter is present when seen again later this morning. Pt states she feels weak and tired, no better or worse than yesterday. No chest pain or SOB. No nausea or vomiting. No pain anywhere. No further complaints at this time. Discussed case with daughter and recommendation for terminal manager eliquis + plavix (no aspirin) therapy. Review of Systems Review of Systems: Per HPI. Physical Exam Physical Exam: General:Alert and oriented, no acute distress, HEENT: Normocephalic, moist oral mucosa, Cardio: Pt currently in atrial fibrillation on exam, rate in the 70s Resp:Lungs clear to auscultation b/l, no wheezes or rhonchi, GI: Soft and nontender, Skin: Warm, pink, dry, Neuro: Generalized strength weakness 4/5 that is symmetric in arms and legs bilaterally Results & Data Results & Data Vital Signs (Past 12 Hours) Vital Signs Temp Pulse Pulse Resp BP Pulse Ox O2 Del Method 08/15/24 07:27 36.3 C L 70 19 141/84 H 98 Room Air 08/15/24 07:00 81 08/15/24 03:26 36.4 C L 71 16 120/71 97 Room Air 08/14/24 22:45 36.5 C 76 16 127/76 96 Room Air 08/14/24 22:01 74 Resident Activity Tracking Resident Involvement: Resident Care Provided Care Provided: Adult Hospital Medicine (2) Type 2 diabetes mellitus with hyperglycemia Diabetes mellitus terminal manager insulin use: without detention use Qualified Code(s): E11.65 - Type 2 diabetes mellitus with hyperglycemia (4) Hypertension Hypertension type: primary hypertension Qualified Code(s): I10 - Essential (primary) hypertension
[2024-08-16 06:42] LABS: Basophils # (auto) 0.01 K/uL (0.00-0.20); Basophils % (auto) 0.2 %; Eosinophils # (auto) 0.08 K/uL (0.00-0.50); Eosinophils % (auto) 1.7 %; Hematocrit (blood only) 33.6 % (37.0-47.0); Hemoglobin 11.9 g/dl (12.0-16.0); Immature Granulocytes # (auto) 0.01 K/uL (0.01-0.20); Immature Granulocytes % (auto) 0.2 %; Lymphocytes # (auto) 1.76 K/uL (1.20-3.40); Lymphocytes % (auto) 38.3 %; Mean Corpuscular Hemoglobin 31.9 pg (25.0-34.0); Mean Corpuscular Hgb Conc 35.4 g/dL (32.0-36.0); Mean Corpuscular Volume 90.1 fL (80.0-100.0); Monocytes # (auto) 0.44 K/uL (0.11-0.59); Monocytes % (auto) 9.6 %; Neutrophils # (auto) 2.29 K/uL (1.40-6.50); Platelet Count 133 K/uL (130-400); RDW Coefficient of Variation 12.4 % (11.5-14.5); RDW Standard Deviation 40.9 fL (36.4-46.3); Red Blood Count 3.73 M/uL (4.20-5.40); White Blood Count 4.59 K/ul (4.8-10.8)
[2024-08-16 07:06] LABS: BUN Creatinine Ratio 30.5 (10-20); Creatinine Clr Calc Pharmacy 65.5 ml/min; Magnesium 1.6 mg/dl (1.7-2.4); Potassium 3.8 mmol/L (3.5-5.1)
--- NOTE | 2024-08-16 07:31 | Hospitalist Progress Note ---
Date of Service August 16, 2024 Assessment & Plan (1) Weakness: (2) Type 2 diabetes mellitus with hyperglycemia: (3) Permanent atrial fibrillation: (4) Hypertension: (5) Dyslipidemia: (6) Stroke-like symptoms: Plan Patient is an 84-year-old female with past medical history of permanent atrial fibrillation (on Eliquis), hypertension, hyperlipidemia, diabetes mellitus type 2, CAD, osteoarthritis, osteoporosis, and pulmonary nodule who arrived to the emergency department due to 1 month of slowly progressing weakness. L periventricular stroke, subacute - Patient with hx of transient black spots in her vision w/ associated weakness, and yesterday-today experienced RUE and RLE weakness that has resolved since then - Patient also w/ hx of poorly controlled DM, HTN, and recent increase in Pravastatin dose - Head CT with left periventricular white matter hypodensity that is new from prior exam and may represent an age-indeterminate infarct - Head CTA; "absent A1 segment of the R anterior cerebral artery, vascular calcifications of the intracranial segments of the ICA - Neck CTA; enlarged thyroid with multiple nodules up to 3.5 cm, scattered vascular calcifications without significant stenosis, TSH 12/27; 0.59 - brain MRI showed subacute L periventricular region infarct, late subacute R periventricular region infarct, small vessel disease - TTE; EF 55-60%, normal LV function - HA1c: 7.8% - speech consulted: no need for NEWS VIDEO EDITOR therapy - pt is on eliquis baseline, will do plavix over aspirin for antiplatelet therapy, continue statin Placement on Friday for inpatient rehab Weakness - Slowly progressive weakness that has lead her to go to the ED previously - PT/OT - Pending placement, Friday. Hypomagnesemia - Level in ED was 1.4, which is similar to previous levels - Will order Magnesium oxide 400 mg bid - Encourage PO intake - Iv mag given today Check AM Asymptomatic UTI - U/A with leukocyte esterase but no nitrites/bacteria - Patient denies dysuria or urinary frequency or other sxs. - Hold off from abx for now HTN - BP elevated at time of admission, however, patient did not take her medications this morning - Continue home Nifedipine DM-2 - Hgb A1c from 04/2024 was 8.9% - Repeat Hgb A1c pending - Lantus and SSI ordered Permanent atrial fibrillation - Continue Metoprolol and Eliquis VTE ppx: Eliquis Code Status: FULL; patient and her state that she would not like to be on a ventilator if her chances of getting off are low Admission and Anticipated Discharge Date Admission Date: August 13, 2024 Supervising Physician Co-Signing Physician Notes I personally examined the patient and verified all iverson points of history and exam, discussed case, and agree with decision making with Dr Diego Medina No new complaints. Awaiting on rehab. Vitals noted, in general she is awake and alert pleasant no distress. HEENT normocephalic atraumatic mucous membranes moist. Breathing unlabored no accessory muscle use good effort. Exam otherwise as above. IMPRESSION & PLAN Progressive, generalized weakness Subacute and late subacute to chronic bilateral periventricular infarcts Focal neuromotor deficits now resolved upon exam, global, bilateral weakness Continue Eliquis and Plavix; Risk/benefits of been discussed by prior hospitalist LDL looks pretty good on pravastatin as an outpatient (was put on rosuvastatin when upon admission); however, risk reduction would be better with rosuvastatinwould just want to follow LDL in a few months to ensure that it is not suppressed to below 50 A1c probably near/at goal given age BP improved with resumption of home BP medications PT/OT eval and treat. Anticipate rehab placement Additional per resident documentation Subjective Pt seen at bedside today. at bedside. She feels weak, a little better but not on her baseline. No chest pain or SOB. No nausea or vomiting. No pain anywhere. No further complaints at this time. Discussed case with daughter and recommendation for long term care administrator eliquis + plavix (no aspirin) therapy. Review of Systems Review of Systems: as per HPI Physical Exam Physical Exam: General:Alert and oriented, no acute distress, HEENT: Normocephalic, moist oral mucosa, Cardio: Pt currently in atrial fibrillation on exam, rate in the 70s Resp:Lungs clear to auscultation b/l, no wheezes or rhonchi, GI: Soft and nontender, Skin: Warm, pink, dry, Neuro: Generalized strength weakness 4/5 that is symmetric in arms and legs bilaterally Results & Data Results & Data Vital Signs (Past 12 Hours) Vital Signs Temp Pulse Pulse Resp BP Pulse Ox O2 Del Method 08/16/24 07:05 36.4 C L 74 16 168/101 H 96 Room Air 08/16/24 03:46 36.4 C L 86 17 146/81 H 95 Room Air 08/15/24 23:41 36.4 C L 74 16 139/83 96 Room Air 08/15/24 21:59 88 08/15/24 19:34 36.7 C 81 18 137/80 98 Room Air Resident Activity Tracking Resident Involvement: Resident Care Provided Care Provided: Adult Hospital Medicine (2) Type 2 diabetes mellitus with hyperglycemia Diabetes mellitus long term care administrator insulin use: without long term care administrator use Qualified Code(s): E11.65 - Type 2 diabetes mellitus with hyperglycemia (4) Hypertension Hypertension type: primary hypertension Qualified Code(s): I10 - Essential (primary) hypertension
[2024-08-16] MEDS: MAGNESIUM SULFATE / D5W 1 GM/100 ML BAG IV SCH (09:38)
--- NOTE | 2024-08-16 11:16 | Pharmacy Report ---
- Date of Service August 16, 2024 - Pharmacy CVA/TIA Medication Review Medications to Prevent Stroke handout has been added to the patients discharge packet. Antiplatelet(s) * Plavix 75mg daily Cholesterol * High intensity statin: rosuvastatin 20 mg daily DVT Prophylaxis * on Eliquis Therapeutic Anticoagulation * Hx Afib/Aflutter noted, and patient is currently receiving eliquis 5mg bid Type 2 Diabetes * Patient has T2DM, but per MD, a diabetes medication with proven CVD benefit will be deferred to their outpatient provider due to familiarity with risks/benefits of such therapies. "Medications to prevent stroke" handout has already been added to the patient's discharge packet, which instructs the patient to follow up with their outpatient provider to evaluate which diabetes medication with proven CVD benefit is best for them
--- NOTE | 2024-08-16 18:31 | Billing Data ---
Date of Service August 16, 2024 Coding Level of Care Code 81956 SUB INP/OBS CARE
--- NOTE | 2024-08-17 05:23 | CT Scan Report ---
EXAM: CT head/brain wo con CLINICAL HISTORY: AMS. TECHNIQUE: Axial non-contrast CT scan of the brain was performed from the skull base to the high parietal region with coronal and sagittal reformats. One of the following dose reduction techniques were utilized for this exam: Automated exposure control, adjustment of the mA and/or kV according to patient size, use of iterative reconstruction. CTDI: 47mGy, DLP: 800.63mGy*cm. COMPARISON: CT angriogram and MRI 08/13/24. FINDINGS: Brain Parenchyma: Normal attenuation of the cerebral hemispheres, cerebellum, and brainstem. No evidence of acute infarct, hemorrhage, or mass effect. Age proportionate involutional changes are seen as evident by the prominence of intra-and extra-axial CSF spaces. Few areas of hypodensities were noted in the bilateral periventricular region and subcortical deep white matter representing microvascular ischemic changes. Hypodense area seen in left periventricular region, unchanged from prior CT angiogram. Ventricular System: Ventricles are normal in size and configuration. No evidence of hydrocephalus or ventricular enlargement. Subarachnoid Spaces: Normal sulci and cisterns. No evidence of subarachnoid hemorrhage or extra-axial fluid collections. Cerebellum and Brainstem: Normal size and signal. No masses, lesions, or areas of abnormal signal. Orbits: Normal appearance of the globes, optic nerves, and extraocular muscles. No evidence of orbital masses or abnormal signal. Sinuses: Clear paranasal sinuses. No evidence of sinusitis or mucosal thickening. Mastoid Air Cells: Clear mastoid air cells. No evidence of mastoiditis. Skull: Normal skull morphology. IMPRESSION: 1. No evidence of established cerebral infarct, intra-parenchymal or intra-ventricular hemorrhage seen. Early changes of acute ischemia are sometimes not visible on CT if there is a strong clinical suspicion MRI with DWI/ADC maps is suggested for further evaluation. 2. Age proportionate involutional changes with chronic microvascular ischemic changes. 3. Hypodense area seen in left periventricular region, unchanged from prior CT angiogram. 4. No interval change since prior study. Electronically signed by Peter Mcdonnell 08-17-2024 05:23 AM
--- NOTE | 2024-08-17 09:14 | Hospitalist Progress Note ---
Date of Service August 17, 2024 Assessment & Plan (1) Weakness: (2) Type 2 diabetes mellitus with hyperglycemia: (3) Permanent atrial fibrillation: (4) Hypertension: (5) Dyslipidemia: (6) Stroke-like symptoms: Plan Patient is an 84-year-old female with past medical history of permanent atrial fibrillation (on Eliquis), hypertension, hyperlipidemia, diabetes mellitus type 2, CAD, osteoarthritis, osteoporosis, and pulmonary nodule who arrived to the emergency department due to 1 month of slowly progressing weakness. L periventricular stroke, subacute - Patient with hx of transient black spots in her vision w/ associated weakness, and yesterday-today experienced RUE and RLE weakness that has resolved since then - Patient also w/ hx of poorly controlled DM, HTN, hyperlipidemia - Head CT with left periventricular white matter hypodensity that - Head CTA; "absent A1 segment of the R anterior cerebral artery, vascular calcifications of the intracranial segments of the ICA - Neck CTA; enlarged thyroid with multiple nodules up to 3.5 cm, scattered vascular calcifications without significant stenosis, TSH 08/13; 0.59 - brain MRI showed subacute L periventricular region infarct, late subacute R periventricular region infarct, small vessel disease - TTE; EF 55-60%, normal LV function - HA1c: 7.8% - pt is on eliquis baseline, will do plavix over aspirin for antiplatelet therapy, continue statin Placement on Friday for inpatient rehab Weakness - Slowly progressive weakness that has lead her to go to the ED previously - PT/OT - Pending placement, Friday. Hypomagnesemia - Level in ED was 1.4, which is similar to previous levels - Will order Magnesium oxide 400 mg bid - Encourage PO intake - Iv mag given yesterday HTN - BP elevated at time of admission, however, patient did not take her medications this morning - Continue home Nifedipine DM-2 - Hgb A1c from 04/2024 was 8.9% - Repeat Hgb A1c pending - Lantus and SSI ordered Permanent atrial fibrillation - Continue Metoprolol and Eliquis VTE ppx: Eliquis Code Status: FULL; patient and her state that she would not like to be on a ventilator if her chances of getting off are low Admission and Anticipated Discharge Date Admission Date: August 13, 2024 Supervising Physician Co-Signing Physician Notes I personally examined the patient and verified all iverson points of history and exam, discussed case, and agree with decision making with Dr Diego Medina Sleeping comfortably. Has rehab placement at [facility] tomorrow. No new issues have arisen, allowed patient to rest. Vitals noted, resting comfortably,no distress. HEENT normocephalic atraumatic mucous membranes moist. Breathing unlabored no accessory muscle use good effort. Exam otherwise as above. IMPRESSION & PLAN Progressive, generalized weakness Subacute and late subacute to chronic bilateral periventricular infarcts Focal neuromotor deficits now resolved upon exam, global, bilateral weakness Continue Eliquis and Plavix; Risk/benefits of been discussed by prior hospitalist LDL looks pretty good on pravastatin as an outpatient (was put on rosuvastatin when upon admission); however, risk reduction would be better with rosuvastatinwould just want to follow LDL in a few months to ensure that it is not suppressed to below 50 (to track for risk/benefit of plaque stabilization/high intensity statin therapy versus small risk of intracranial hemorrhage if LDL is suppressed to below 50) A1c probably near/at goal given age BP improved with resumption of home BP medications PT/OT eval and treat. for SNF/rehab emphasis 08/18 Additional per resident documentation Subjective Pt seen at bedside today. Refers feeling about the same. No concern or questions today. Pending placement. No chest pain or SOB. No nausea or vomiting. No pain anywhere. No further complaints at this time. Review of Systems Review of Systems: as per HPI Physical Exam Physical Exam: General:Alert and oriented, no acute distress, HEENT: Normocephalic, moist oral mucosa, Cardio: Pt currently in atrial fibrillation on exam, rate in the 70s Resp:Lungs clear to auscultation b/l, no wheezes or rhonchi, GI: Soft and nontender, Skin: Warm, pink, dry, Neuro: Generalized strength weakness 4/5 that is symmetric in arms and legs bilaterally Results & Data Results & Data Vital Signs (Past 12 Hours) Vital Signs Temp Pulse Resp BP BP Pulse Ox O2 Del Method 08/17/24 07:39 36.6 C 57 L 19 116/76 96 Room Air 08/17/24 03:42 154/81 H 08/17/24 03:34 36.6 C 84 16 190/85 H 94 Room Air Resident Activity Tracking Resident Involvement: Resident Care Provided Care Provided: Adult Hospital Medicine (2) Type 2 diabetes mellitus with hyperglycemia Diabetes mellitus longterm insulin use: 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
--- NOTE | 2024-08-17 13:30 | Billing Data ---
Date of Service August 17, 2024 Coding Level of Care Code 82090 SUB INP/OBS CARE
[2024-08-18 07:19] VITALS: PULSE 71; RESP 19; TEMP 97.7; O2SAT 97
--- NOTE | 2024-08-18 07:57 | Discharge Summary ---
Date of Service August 18, 2024 Admission HPI Per Admitting Provider Patient is an 84-year-old female with past medical history of permanent atrial fibrillation (on Eliquis), hypertension, hyperlipidemia, diabetes mellitus type 2, CAD, osteoarthritis, osteoporosis, and pulmonary nodule who arrived to the emergency department due to 1 month of slowly progressing weakness. Patient states that she was seen by the emergency department 2 times since mid June, the first due to an episode of black spots in her vision with associated increased weakness that quickly resolved, and the second episode being due to a fall earlier this month. Today she notes that she noted weakness in her right upper extremity yesterday when she was trying to write a check, as well as right lower extremity weakness when she was trying to lift her foot to stand on the sidewalk. Patient's who was at bedside denies any increasing confusion at home. Patient states that on occasion, she does forget to take her medications for management of her chronic illnesses. On chart review, patient was following up with primary care provider due to poorly controlled diabetes with blood sugar readings ranging between 160 and 230. Was also seen on 08/10/2024 for ED follow- up after recent visit on 08/08/2024 for similar concerns as current admission. At this time, patient was complaining of lightheadedness/weakness and also some imbalance. At this time, patient had some labs done which showed hypomagnesemia of 1.4, but all other labs unremarkable. ED had offered patient transfer for an inpatient rehab facility, to which patient responded "oh no, I do not need that" saying that she gets around her home okay, and was therefore discharged. ED Course: Patient given ASA 81 mg and a NSS 1L bolus Labs/Imaging: CBC without leukocytosis, hemoglobin of 14.2, hematocrit of 40.7, platelets of 176. CMP without significant electrolyte abnormalities, creatinine at 0.70, and elevated blood sugar of 2 4. Hypomagnesemia 1.4, LFTs unremarkable, troponins negative, TSH of 0.590. U/A with 1+ leukocyte esterase but no nitrites or bacteria noted. Chest x-ray unremarkable. Head CT with left periventricular white matter hypodensity that is new from prior exam and may represent an age-indeterminate infarct. Medical History: [Reviewed] Medications: [Reviewed] Surgical History: [Reviewed] Family history: [Reviewed] Allergies: [Reviewed] Social History: [Reviewed] Principal Diagnosis Bilateral periventricular stroke, subacute Discharge Exam General:Alert and oriented, no acute distress, HEENT: Normocephalic, moist oral mucosa, Cardio: Pt currently in atrial fibrillation on exam, rate in the 70s Resp:Lungs clear to auscultation b/l, no wheezes or rhonchi, GI: Soft and nontender, Skin: Warm, pink, dry, Neuro: Generalized strength weakness 4/5 that is symmetric in arms and legs bilaterally Discharge Data Allergies Allergy/AdvReac Type Severity Reaction Status Date / Time cefaclor Allergy Intermediate RASH Verified 08/13/24 09:37 oxytetracycline Allergy Unknown UNSURE Verified 08/13/24 09:37 polymyxin B Allergy Unknown UNSURE Verified 08/13/24 09:37 metformin AdvReac Intermediate Diarrhea Verified 08/13/24 09:37 erythromycin base AdvReac Mild GI UPSET Verified 08/13/24 09:37 Sulfa (Sulfonamide AdvReac Mild N/V Verified 08/13/24 09:37 Antibiotics) Tetracyclines AdvReac Mild TERRAMYCIN- Verified 08/13/24 09:37 DIARRHEA ozempic AdvReac Intermediate Gastrointestinal Uncoded 08/13/24 09:37 Upset Consultations 08/13/24 13:14 ED Decision to Admit Stat Ordered Studies 08/13/24 11:46 CT head/brain wo con Stat 08/13/24 16:06 CT angio head w con Routine MR brain wo con Routine 08/13/24 17:48 CTA neck with con [CT angio neck with con] Routine 08/17/24 03:56 CT head/brain wo con Stat Hospital Course (1) CVA (cerebral vascular accident): (2) Permanent atrial fibrillation: (3) Hypertension: (4) Type 2 diabetes mellitus with hyperglycemia: (5) Dyslipidemia: (6) Thyroid nodule: Plan Patient is an 84-year-old female with past medical history of permanent atrial fibrillation (on Eliquis), hypertension, hyperlipidemia, diabetes mellitus type 2, CAD, osteoarthritis, osteoporosis, and pulmonary nodule who arrived to the emergency department due to 1 month of slowly progressing weakness. Bilateral periventricular strokes, subacute - Patient with hx of transient black spots in her vision w/ associated weakness, then experienced RUE and RLE weakness that has resolved since then - Patient also w/ hx of poorly controlled DM, HTN, hyperlipidemia - Head CT with left periventricular white matter hypodensity - Head CTA; "absent A1 segment of the R anterior cerebral artery, vascular calcifications of the intracranial segments of the ICA - Neck CTA; enlarged thyroid with multiple nodules up to 3.5 cm, scattered vascular calcifications without significant stenosis - brain MRI showed subacute L periventricular region infarct, late subacute R periventricular region infarct, small vessel disease -Suspect either small vessel thrombotic disease versus embolic stroke given bilateral strokes - TTE; EF 55-60%, normal LV function, negative bubble study - HA1c: 7.8% - Continue Eliquis. - Antiplatelet: Started Plavix, No aspirin -Added rosuvastatin Weakness-secondary to stroke - Slowly progressive weakness that has lead her to go to the ED previously - PT/OT Hypomagnesemia - Level in ED was 1.4, which is similar to previous levels, replaced -Started magnesium oxide 400 mg bid HTN - BP elevated throughout admission - Continue home Nifedipine, metoprolol -If hypertension persist, consider adding ARB DM-2 - Hgb A1c from 04/2024 was 8.9% - Repeat Hgb A1c: 7.8 % - Lantus and SSI Resume home meds on discharge Permanent atrial fibrillation - Continue Metoprolol and Eliquis Thyroid Nodules - Neck CTA; enlarged thyroid with multiple variable- sized nodules up to 3.5 cm on the left side - TSH 08/13; 0.59 - Follow up outpatient for possible biopsy, consider repeat thyroid sonogram as outpatient VTE ppx: Eliquis Code Status: FULL; patient and her state that she would not like to be on a ventilator if her chances of getting off are low Total Time Total Time Spent Total Time Spent (In Minutes): see attending documentation Discharge Plan Discharge Items Patient Disposition: Transfer Inpatient Rehab Fac Reason For Visit: WEAKNESS Discharge Diagnosis: Stroke Activity: Resume your previous activity Non-emergency contact: Primary Care Provider Call non-emergency contact if: you have any medication questions, your symptoms worsen and your pain is not controlled Follow-up/Referrals: Claudette Brar MD [Primary Care Provider] - Diet: Carb Consistent or DM2 Addtl Attending Provider Instructions: Patient is an 84-year-old female with past medical history of permanent atrial fibrillation (on Eliquis), hypertension, hyperlipidemia, diabetes mellitus type 2, CAD, osteoarthritis, osteoporosis, and pulmonary nodule who arrived to the emergency department due to 1 month of slowly progressing weakness. L periventricular stroke, subacute - Patient with hx of transient black spots in her vision w/ associated weakness, and yesterday-today experienced RUE and RLE weakness that has resolved since then - Patient also w/ hx of poorly controlled DM, HTN, hyperlipidemia - Head CT with left periventricular white matter hypodensity - Head CTA; "absent A1 segment of the R anterior cerebral artery, vascular calcifications of the intracranial segments of the ICA - Neck CTA; enlarged thyroid with multiple nodules up to 3.5 cm, scattered vascular calcifications without significant stenosis - brain MRI showed subacute L periventricular region infarct, late subacute R periventricular region infarct, small vessel disease - TTE; EF 55-60%, normal LV function - HA1c: 7.8% - Continue Eliquis. - Antiplatelet: Plavix, No aspirin - Continue Statin Weakness - Slowly progressive weakness that has lead her to go to the ED previously - PT/OT Hypomagnesemia - Level in ED was 1.4, which is similar to previous levels - Will order Magnesium oxide 400 mg bid - Repeat mag HTN - BP elevated at time of admission - Continue home Nifedipine -If hypertension persist, consider better ARB DM-2 - Hgb A1c from 04/2024 was 8.9% - Repeat Hgb A1c: 7.8 % - Lantus and SSI Resume home meds Permanent atrial fibrillation - Continue Metoprolol and Eliquis Thyroid Nodules - Neck CTA; enlarged thyroid with multiple variable- sized nodules up to 3.5 cm on the left side - TSH 08/13; 0.59 - Follow up outpatient for possible biopsy, consider repeat renal sonogram outpatient VTE ppx: Eliquis Code Status: FULL; patient and her state that she would not like to be on a ventilator if her chances of getting off are low Pending Studies at Discharge: No Stand-Alone Forms: My PerSay, Medications to Prevent Stroke Skilled Items Patient informed of condition?: No DNR: No Discharge Level of Care: Skilled Communicable Disease: No Discharge Prognosis: Stable Lines: None Urinary Catheter: No Medications and DC Order Prescriptions: New clopidogrel 75 mg Tablet 75 mg PO QAM Qty: 0 0RF rosuvastatin 20 mg Tablet 20 mg PO QAM Qty: 0 0RF Continued (DME) blood sugar diagnostic Strip See Rx Instructions .ROUTE .MEDSUPPLY Qty: 300 1RF Rx Instructions: TEST 3 TIMES DAILY. DX: E11.9 PRN (prodigy) (DME) lancets [Pro[employer]y Lancets] 28 gauge misc See Rx Instructions .ROUTE .MEDSUPPLY Qty: 300 1RF Rx Instructions: TEST 3 TIMES DAILY DX: E11.9 PRN nifedipine 30 mg tablet extended release 30 mg PO DAILY Qty: 90 3RF glimepiride 2 mg tablet 2 mg PO DAILY Qty: 90 3RF cholecalciferol (vitamin D3) 1,000 unit capsule 3,000 units PO DAILY Qty: 90 Eliquis 5 mg tablet 5 mg PO BID Qty: 180 2RF hydrocortisone [Proctozone-HC] 2.5 % cream with perineal applicator 1 applic [place] DAILY PRN (Reason: hemorrhoids) Qty: 30 1RF (DME) blood-glucose meter [[employer] Autocode Meter] Kit See Dose Instructions .ROUTE .MEDSUPPLY Qty: 1 0RF Rx Instructions: Check once daily metoprolol succinate 25 mg tablet extended release 24 hr 25 mg PO BID Qty: 200 3RF metformin 500 mg tablet 500 mg PO DAILY Qty: 100 3RF acetaminophen 500 mg Capsule 500 mg PO Q6H PRN (Reason: Pain) Discontinued pravastatin 20 mg tablet 20 mg PO DAILY Qty: 90 3RF Discharge Orders: Discharge Order (Routine); Ordered 08/18/24 Ordered By: Felicitas Medina Admission Data Admit Date/Time: 08/13/24 14:37 Attending Provider: Cony Barclay Admit Provider: Tia Hinson Primary Care Provider: Claudette Brar Other Providers: Jose Michelle; Cony Barclay Other Interventions: Discharge Summary Assessment (RN) Last Done: 08/18/24 10:40 Supervising Physician Co-Signing Physician Notes I personally examined the patient and verified all iverson points of history and exam, discussed case, and agree with decision making with Dr. Diego Medina with the following additions/exceptions: S-patient feeling fine, no complaints O- Vitals Reviewed Gen: AAOx2, NAD HEENT: Anicteric sclerae, EOMI CV: Irregularly irregular no mgr nl S1S2 Pulm: CTAB no wcr Ext: No edema Skin: No rashes, warm/dry Neuro: Full strength throughout upper and lower extremities, masked facies A/P: This patient is an 84-year-old female here with progressive, bilateral weakness, found to have bilateral periventricular subacute infarcts, most likely embolic despite being on Eliquis versus small vessel disease CTA head and neck negative Echocardiogram with bubble study negative except for moderate RV dilatation which are most likely explain her chronic ankle edema. Nifedipine can also cause ankle edema Continue Eliquis and started Plavix, switched her pravastatin to rosuvastatin for high intensity purposes In permanent atrial fibrillation, rate controlled, blood pressures were elevated and her remaining that way-consider further titration as an outpatient of blood pressure medicines if not at goal A1c probably near/at goal given age-continue metformin and glimepiride Stable for discharge to rehab
[2024-08-18 10:41] VITALS: BP 129/81
--- NOTE | 2024-08-18 17:32 | Billing Data ---
Date of Service August 18, 2024 Coding Level of Care Code 98806 INP/OBS DISCH >30 MIN
== END 2024-08-18 12:41 | DRG 65 ==
LOC: ED 11:20 → 2S 14:37 → SUATTDRO 14:37 → 2S 15:19

== ENCOUNTER 2024-09-08 20:02 | Inpatient (IN) ==
--- NOTE | 2024-09-08 20:15 | ED Triage Note ---
Date of Service September 08, 2024 Provider in Triage Author: Radha Waddell History of Present Illness This patient was briefly evaluated while in triage. An abbreviated physical exam was performed. This patient is a 84-year-old Female who presents to the ED for evaluation generalized weakness, fatigue, blurry vision, leg weakness this evening recently discharged from [facility] seen by Ronna Diez PA-C today, brain MRI scheduled for Friday Physical Exam GENERAL: NAD, in wheelchair with family CARDIOVASCULAR: RRR RESPIRATORY: CTA Initial orders for labs and / or imaging were placed and patient was placed in the waiting area until a bed is available. Please see further documentation for the full ED course.
[2024-09-08 21:04] LABS: Alanine Aminotransferase 20 U/L (7-52); Albumin Globulin Ratio 1.5 (0.9-2); Albumin Level 4.2 gm/dl (3.4-5.0); Alkaline Phosphatase 62 U/L (34-104); Anion Gap 11 (3-11); Aspartate Aminotransferase 32 U/L (13-39); BUN Creatinine Ratio 29.9 (10-20); Basophils # (auto) 0.02 K/uL (0.00-0.20); Basophils % (auto) 0.3 %; Bilirubin,Total 0.8 mg/dl (0.2-1.0); Blood Urea Nitrogen 20 mg/dl (6-23); Calcium 9.8 mg/dl (8.6-10.3); Carbon Dioxide 23 mmol/L (21-32); Chloride 106 mmol/L (98-107); Eosinophils # (auto) 0.06 K/uL (0.00-0.50); Eosinophils % (auto) 0.8 %; Globulin 2.8 gm/dl (2.5-4.0); Glucose 232 mg/dl (70-99(Fasting)); Hematocrit (blood only) 39.4 % (37.0-47.0); Hemoglobin 14.1 g/dl (12.0-16.0); Immature Granulocytes # (auto) 0.04 K/uL (0.01-0.20); Immature Granulocytes % (auto) 0.5 %; Lymphocytes # (auto) 1.15 K/uL (1.20-3.40); Lymphocytes % (auto) 15.1 %; Mean Corpuscular Hemoglobin 32.1 pg (25.0-34.0); Mean Corpuscular Hgb Conc 35.8 g/dL (32.0-36.0); Mean Corpuscular Volume 89.7 fL (80.0-100.0); Mean Platelet Volume 10.5 fL (9.4-12.4); Monocytes # (auto) 0.47 K/uL (0.11-0.59); Monocytes % (auto) 6.2 %; Neutrophils # (auto) 5.86 K/uL (1.40-6.50); Neutrophils % (auto) 77.1 %; Platelet Count 176 K/uL (130-400); Potassium 3.7 mmol/L (3.5-5.1); RDW Coefficient of Variation 12.8 % (11.5-14.5); Red Blood Count 4.39 M/uL (4.20-5.40); Sodium 140 mmol/L (136-145)
[2024-09-08 21:11] LABS: Troponin I High Sensitivity < 2.3 pg/ml (0-14)
[2024-09-08 21:20] LABS: Thyroid Stimulating Hormone 0.938 uIu/ml (0.300-4.500)
[2024-09-08 21:24] LABS: INR 1.2 (0.9-1.1); Prothrombin Time 12.5 Seconds (9.0-12.0)
--- NOTE | 2024-09-08 21:27 | Emergency Department Note ---
Impression & Plan General weakness, Change in mental status, Weakness of both lower extremities ED Provider Note CHIEF COMPLAINT: Weakness HISTORY OF PRESENTING ILLNESS: This 84-year-old female patient presents to the emergency department with her daughter and for evaluation of weakness. The patient has been having weakness in her bilateral legs as well as intermittent blurriness in her vision. She is scheduled for an MRI of the brain next week, but was told to come to the ER if things got worse. The patient was discharged from [facility] 2 days ago after being there for weakness secondary to her previous stroke in July 2024. The patient saw her PCP on 09/07/2024. An MRI of the brain without contrast was ordered at that visit. She remains on Plavix and Eliquis. Apparently the patient did not have OT while at [facility]. She was recently found to have thyroid nodules as well and is to be scheduled for a FNA. The patient states that when she first came home from [facility] 2 days ago she seemed to be doing better. However later that evening and into today she seemed to get more weak and seemed to be complaining of more discomfort in her legs. She also seemed a little confused and tired as well. She has been having trouble getting around the house because of trouble standing up. She denies pain in her back. She denies numbness or tingling into her legs. She has been having some urinary incontinence, but not sure if it is her baseline due to her age or worse. No facial droop or trouble with her speech. Her eyes felt a little blurry intermittently today as well. The symptoms have been progressing over the past 2 days. REVIEW OF SYSTEMS: See HPI for pertinent positives and pertinent negatives. ALLERGIES: See below MEDICATIONS: See below PAST MEDICAL HISTORY: See below PHYSICAL EXAM: VITALS: Vitals are noted on the nurse's note and reviewed by myself. GENERAL: The patient appears tired on exam, but in no acute distress, non- diaphoretic. SKIN: Capillary reflex less than 2 seconds. HEAD: No scalp tenderness. No step-offs felt. EARS: Bilateral external auditory canals clear. Bilateral tympanic membranes pearly slater without erythema or effusion. No hemotympanum. No medellin sign. No mastoid tenderness. EYES: Pupils equal round and reactive to light and accommodation. Conjunctivae without injection, sclerae without icterus. Extraocular movements intact without pain. No nystagmus. NOSE: Patent, turbinates without inflammation or discharge. No sinus tenderness. No septal hematoma or bleeding. FACE: No facial bone tenderness. Full range of motion of the jaw without tenderness. No facial droop. MOUTH: Mucous membranes moist. Uvula midline. Airway patent. Tongue does not deviate. NECK: Supple without nuchal rigidity. Cervical spine is nontender. Full range of motion of the neck without tenderness and normal strength. HEART: Regular rate and rhythm without murmurs gallops or rubs. LUNGS: Clear to auscultation bilaterally without wheezes, rales or rhonchi. No retractions or accessory muscle use. No chest wall tenderness. ABDOMEN: Positive bowel sounds x 4. Normal tympanic percussion. Soft, nontender to palpation. No masses or hepatosplenomegaly. No guarding or rebound tenderness. No focal RLQ or LLQ tenderness. MUSCULOSKELETAL: No tenderness of the thoracic or lumbar spine or paraspinal muscles. Strength 5/5 and equal in the bilateral upper extremities. Strength in the right lower extremity is 3/5 and 4/5 in the left lower extremity. Normal sensation to light and sharp touch of the bilateral upper and lower extremities. No bony tenderness to palpation of the bilateral upper or lower extremities. Peripheral pulses 2+ and equal in the bilateral upper and lower extremities. NEURO: Patient was alert and oriented to person place and time. Normal mental status exam. Normal sensation to light and sharp touch. No focal neurological deficits. DIFFERENTIAL DIAGNOSIS: Differential diagnosis includes COVID, influenza, RSV, viral infection, UTI, pneumonia, PR, PE, acute intracranial bleed, acute intracranial abnormality, CVA, TIA, disc herniation, fracture, subluxation, metastatic disease, cord compression, discitis, sciatica, cauda equina, conus medullaris syndrome, infection, epidural abscess, epidural hematoma, aortic disease, gastrointestinal, electrolyte abnormality, dehydration, deconditioning, as well as other pathologies. ED COURSE AND MEDICAL DECISION MAKING: HISTORY FROM INDEPENDENT HISTORIAN: Additional history was obtained from the patient's daughter and MEDICATIONS GIVEN: 500 ml normal saline solution bolus. Zofran 4 mg IV. MONITOR: Continuous electronic device monitor: Order was placed for continuous electronic device monitor. Patient was placed on the electronic device monitor and continuous pulse ox. Patient was noted to be in normal sinus rhythm at an initial rate of 90 bpm per my interpretation. EKG: EKG was interpreted by myself as atrial fibrillation at 94 bpm with no acute ST or T wave changes. INTERPRETATION OF LABS: I interpreted the labs with full lab results as below in the lab section of this note. Laboratory results pertinent to the emergent complaint are discussed in the MDM section below. The patient was advised to follow up with their PCP and/or specialist(s) for further outpatient monitoring and management of any abnormal results. INTERPRETATION OF IMAGING: Imaging studies were interpreted by myself and read by radiology as per the imaging section of this note. The patient was advised to follow up with their PCP and/or specialist(s) for further outpatient management of any non-emergent abnormal findings. Chest x-ray negative for acute cardiopulmonary etiology. CT scan of the head without contrast showed a subacute ischemic injury of the right capsule. No evidence of hemorrhagic transformation. MRI of the brain without contrast showed a late subacute ischemic injury of the left capsule and remote ischemic injury of the right capsule, but no acute intracranial pathology. MRI of the lumbar spine without contrast showed advanced disc degeneration at L4/L5, moderate disc degeneration at L3/L4, and mild disc degeneration at L1/L2, L2/L3, and L5/S1. There is annular disc bulging flattening the ventral thecal sac and causing a mild subarticular recess stenosis at L3/L4, L4/L5, and L5/S1 without evidence of neural impingement. No spinal canal stenosis. There is a mild left L4/L5 and mild bilateral L5/S1 neuroforaminal stenosis without evidence of neural impingement. No evidence of fracture, infection, tumor, or arachnoiditis. CONSULTATIONS: On-call hospitalist MDM SUMMARY: The patient was seen during a time of extreme volume and extreme acuity. Nursing triage protocols were initiated with IV lock, labs, and/or imaging studies conducted by protocol in the triage area. The patient was initially evaluated in a triage room and then re-evaluated once they were taken back to an exam room. The patient had a stroke around Dottie time and was at [facility] for rehab. The patient was just discharged home 2 days ago. Initially she seemed well, but then got progressively worse over the past 1 to 2 days. She saw her PCP this morning who was concerned about her weakness, trouble ambulating, and intermittent blurry vision. An outpatient MRI was ordered, but cannot be done until next week. The patient was advised to come to the ER if symptoms got worse. The patient is on Plavix and Eliquis. CBC without leukocytosis, anemia, or thrombocytopenia. INR 1.2 and PT 12.5. Glucose 232, but CMP otherwise unremarkable. High-sensitivity troponin normal. TSH normal. Respiratory BioFire negative. The patient was unable to give a urine sample while in the ER. Chest x-ray negative for acute cardiopulmonary etiology. CT scan of the head without contrast showed a subacute ischemic injury of the right capsule. No evidence of hemorrhagic transformation. MRI of the brain without contrast showed a late subacute ischemic injury of the left capsule and remote ischemic injury of the right capsule, but no acute intracranial pathology. MRI of the lumbar spine without contrast showed advanced disc degeneration at L4/L5, moderate disc degeneration at L3/L4, and mild disc degeneration at L1/L2, L2/L3, and L5/S1. There is annular disc bulging flattening the ventral thecal sac and causing a mild subarticular recess stenosis at L3/L4, L4/L5, and L5/S1 without evidence of neural impingement. No spinal canal stenosis. There is a mild left L4/L5 and mild bilateral L5/S1 neuroforaminal stenosis without evidence of neural impingement. No evidence of fracture, infection, tumor, or arachnoiditis. The patient's daughter states that she has been unable to manage well at home due to her increasing weakness. The patient's daughter does not feel the patient can go home at this time. I had a meaningful discussion about this patient with Dr. Buck who agrees with my assessment and the treatment plan. I spoke with the on-call hospitalist who agreed to admit the patient for further evaluation and treatment. Please refer to their dictation for further details. The patient's care was transferred in stable condition. DIAGNOSIS: General Weakness Change in mental status Bilateral lower extremity weakness Past Med/Surg History Problem List (Updated 09/09/24 @ 06:51 by Alexandra Wilson PA-C) Weakness of both lower extremities (Acute) Change in mental status (Acute) General weakness (Acute) Thyroid nodule Fatigue (Acute) Urinary frequency (Acute) Weakness (Acute) Pulmonary nodule Osteoarthritis Osteoporosis Coronary artery calcification (~02/2021) Type 2 diabetes mellitus (Chronic) Insomnia (Acute) Vitamin D deficiency (Chronic ~06/18/23) Medical History Stroke-like symptoms Weakness CVA (cerebral vascular accident) Type 2 diabetes mellitus with hyperglycemia Permanent atrial fibrillation Hypertension Dyslipidemia Persistent atrial fibrillation Abnormal CT scan, esophagus Hot flash not due to menopause Basal cell carcinoma (BCC) Schatzki's ring Nontoxic multinodular goiter Interstitial lung disease Hepatic steatosis no concerns on CT abd 03/07 Gout Gastroesophageal reflux disease Allergic rhinitis Surgical History H/O total hysterectomy S/P tonsillectomy and adenoidectomy S/P FRANK-BSO Status post Mohs surgery multiple, 2007 on. BCC S/P cataract surgery b/l History of lung biopsy (~2016) 2017 thoracoscopy w/ wedge resection of lung. Dr Sánchez. H/O breast biopsy 2016 H/O: hemorrhoidectomy 2006 History of cholecystectomy laparoscopic Hx of appendectomy Family History Brother Myocardial infarction Father Alcoholism Atherosclerosis Cardiac disorder Diabetes Hypertension Mother Atherosclerosis Diabetes Hypertension Unknown COPD (chronic obstructive pulmonary disease) Denies family history of Ovarian cancer Prostate cancer Breast cancer Lung cancer Colorectal cancer Social History Smoking Status: Never smoker Second Hand Exposure: No; Do You Dip or Chew Tobacco: No; Hx Alcohol Use: No Hx Substance Use: No Preferred Language: Palestinian Communication Ability: Effective Visual Impairment: Limited Hearing Ability: Hard of Hearing Computer Programmer Analyst Required: No Beliefs That Will Affect Care: None marital status: Current Living Situation: Spouse Current Living Situation Comment: current occupational status: retired How many Children do You have: 2 Other Information That Helps Us Care for You: No Feels Safe at Home: Yes Safety Concerns: Feels Safe At This Time Childhood Exposure to Second-Hand Smoke: No Diet: regular caffeine: No during the past year weight has: remained stable Dental Care, Regularly: Yes Physical Activity Frequency: Does not Exercise Seatbelt Use: always Sunscreen Use: No (sometimes- does wear a hat and long sleeves ) Assistive Devices: Walker Allergies Allergies Allergy/AdvReac Type Severity Reaction Status Date / Time cefaclor Allergy Intermediate RASH Verified 09/08/24 11:07 oxytetracycline Allergy Unknown UNSURE Verified 09/08/24 11:07 polymyxin B Allergy Unknown UNSURE Verified 09/08/24 11:07 metformin AdvReac Intermediate Diarrhea Verified 09/08/24 11:07 erythromycin base AdvReac Mild GI UPSET Verified 09/08/24 11:07 Sulfa (Sulfonamide AdvReac Mild N/V Verified 09/08/24 11:07 Antibiotics) Tetracyclines AdvReac Mild TERRAMYCIN- Verified 09/08/24 11:07 DIARRHEA ozempic AdvReac Intermediate Gastrointestinal Uncoded 09/08/24 11:07 Upset Home Meds Home Medications Medication Instructions Recorded Confirmed cholecalciferol (vitamin D3) 25 3,000 units PO DAILY #90 caps 02/09/19 09/09/24 mcg (1,000 unit) capsule acetaminophen 500 mg capsule 500 mg PO Q6H PRN Pain 06/12/23 09/09/24 Previous Rx's Medication Instructions Recorded apixaban 5 mg tablet (Eliquis) 5 mg PO BID #180 tabs 12/20/21 blood-glucose meter (Prodigy #1 ea 05/16/22 Autocode Meter kit) hydrocortisone 2.5 % topical cream 1 applic [place] DAILY PRN hemorrhoids 12/03/22 with perineal applicator #30 grams (Proctozone-HC) metoprolol succinate 25 mg 25 mg PO BID #200 tabs 11/13/23 tablet,extended release 24 hr blood sugar diagnostic #300 ea 03/04/24 lancets 28 gauge (Prodigy Lancets) #300 ea 03/04/24 nifedipine 30 mg tablet,extended 30 mg PO DAILY #90 tabs 03/23/24 release metformin 500 mg tablet 500 mg PO DAILY #100 tabs 04/07/24 glimepiride 2 mg tablet 2 mg PO DAILY #90 tabs 05/18/24 rosuvastatin 20 mg tablet 20 mg PO QAM #0 tabs 08/18/24 clopidogrel 75 mg tablet 75 mg PO QAM #7 tabs 09/08/24 Results & Data (ED) Vital Signs Vital Signs - 24 hr 09/08/24 20:13 09/08/24 22:44 09/08/24 22:44 Temperature 36.3 C L Temperature Source Temporal Artery Scan Pulse Rate 94 H Pulse Rate [Finger] 102 H Pulse Rate from SpO2 Sensor Respiratory Rate 20 18 Respiratory Effort / Characteristics Non-Labored Spontaneous Non-Labored Spontaneous Respiratory Depth Normal Normal Respiratory Pattern Regular Regular Blood Pressure 111/67 Blood Pressure [Right Arm] 101/86 Blood Pressure Mean 81 Blood Pressure Mean [Right Arm] 91 Blood Pressure Position Sitting Pulse Oximetry 97 97 97 Oxygen Delivery Method Room Air Room Air Room Air Sepsis Recent Fever Within 48 Hours No Sepsis New/Unexplained Change in Mental Status N/A Sepsis Action Taken by Nursing No Action Required 09/09/24 00:27 09/09/24 00:50 09/09/24 02:00 Temperature Temperature Source Pulse Rate 101 H 106 H 109 H Pulse Rate [Finger] Pulse Rate from SpO2 Sensor 109 H Respiratory Rate 14 12 Respiratory Effort / Characteristics Respiratory Depth Respiratory Pattern Blood Pressure 118/94 142/75 H Blood Pressure [Right Arm] Blood Pressure Mean 102 97 Blood Pressure Mean [Right Arm] Blood Pressure Position Pulse Oximetry 96 100 Oxygen Delivery Method Room Air Room Air Sepsis Recent Fever Within 48 Hours Sepsis New/Unexplained Change in Mental Status Sepsis Action Taken by Nursing 09/09/24 02:00 09/09/24 02:00 09/09/24 02:00 Temperature Temperature Source Pulse Rate Pulse Rate [Finger] Pulse Rate from SpO2 Sensor Respiratory Rate Respiratory Effort / Characteristics Respiratory Depth Respiratory Pattern Blood Pressure 142/75 H 142/75 H 142/75 H Blood Pressure [Right Arm] Blood Pressure Mean 98 98 98 Blood Pressure Mean [Right Arm] Blood Pressure Position Pulse Oximetry Oxygen Delivery Method Sepsis Recent Fever Within 48 Hours Sepsis New/Unexplained Change in Mental Status Sepsis Action Taken by Nursing Laboratory Data 09/08/24 20:32 09/08/24 20:32 Lab Results 09/08/24 09/08/24 Range/Units 20:32 22:41 WBC 7.60 (4.8-10.8) K/ul RBC 4.39 (4.20-5.40) M/uL Hgb 14.1 (12.0-16.0) g/dl Hct 39.4 (37.0-47.0) % MCV 89.7 (80.0-100.0) fL MCH 32.1 (25.0-34.0) pg MCHC 35.8 (32.0-36.0) g/dL RDW Std Deviation 42.0 (36.4-46.3) fL RDW Coeff of Dusty 12.8 (11.5-14.5) % Plt Count 176 (130-400) K/uL MPV 10.5 (9.4-12.4) fL Immature Gran % (Auto) 0.5 % Neut % (Auto) 77.1 % Lymph % (Auto) 15.1 % Chester % (Auto) 6.2 % Eos % (Auto) 0.8 % Baso % (Auto) 0.3 % Neut # (Auto) 5.86 (1.40-6.50) K/uL Lymph # (Auto) 1.15 L (1.20-3.40) K/uL Chester # (Auto) 0.47 (0.11-0.59) K/uL Eos # (Auto) 0.06 (0.00-0.50) K/uL Baso # (Auto) 0.02 (0.00-0.20) K/uL Immature Gran # (Auto) 0.04 (0.01-0.20) K/uL PT 12.5 H (9.0-12.0) Seconds INR 1.2 H (0.9-1.1) Sodium 140 (136-145) mmol/L Potassium 3.7 (3.5-5.1) mmol/L Chloride 106 (98-107) mmol/L Carbon Dioxide 23 (21-32) mmol/L Anion Gap 11 (3-11) BUN 20 (6-23) mg/dl Creatinine 0.67 (0.6-1.2) mg/dl Est Cr Clr Drug Dosing Not Reportable eGFR 85.07 BUN/Creatinine Ratio 29.9 H (10-20) Glucose 232 H (70-99(Fasting)) mg/dl Calcium 9.8 (8.6-10.3) mg/dl Phosphorus 3.2 (2.5-4.9) mg/dl Magnesium 1.5 L (1.7-2.4) mg/dl Total Bilirubin 0.8 (0.2-1.0) mg/dl AST 32 (13-39) U/L ALT 20 (7-52) U/L Alkaline Phosphatase 62 (34-104) U/L Troponin I High Sens < 2.3 (0-14) pg/ml Total Protein 7.0 (6.0-8.3) gm/dl Albumin 4.2 (3.4-5.0) gm/dl Globulin 2.8 (2.5-4.0) gm/dl Albumin/Globulin Ratio 1.5 (0.9-2) TSH 0.938 (0.300-4.500) uIu/ml Adenovirus (PCR) Not Detected (NotDetected) B. pertussis DNA (PCR) Not Detected (NotDetected) B.parapertussis DNA PCR Not Detected (NotDetected) C. pneumoniae DNA (PCR) Not Detected (NotDetected) Coronavirus OC43 (PCR) Not Detected (NotDetected) Coronavirus HKU1 (PCR) Not Detected (NotDetected) Coronavirus 229E (PCR) Not Detected (NotDetected) SARS-CoV-2 (PCR) Not Detected (NotDetected) Coronavirus NL63 (PCR) Not Detected (NotDetected) Human Metapneumovir PCR Not Detected (NotDetected) Influenza Type A (PCR) Not Detected (NotDetected) Influenza Type B (PCR) Not Detected (NotDetected) M. pneumoniae (PCR) Not Detected (NotDetected) Parainfluenza 1 (PCR) Not Detected (NotDetected) Parainfluenza 2 (PCR) Not Detected (NotDetected) Parainfluenza 3 (PCR) Not Detected (NotDetected) Parainfluenza 4 (PCR) Not Detected (NotDetected) RSV (PCR) Not Detected (NotDetected) Entero/Rhino (PCR) Not Detected (NotDetected) Administered Medications Magnesium Sulfate/Dextrose (Magnesium Sulfate / D5w) 1 gm in 100 mls @ 50 mls/hr IV Q2H [facility] Stop: 09/09/24 11:21 Last Admin: 09/09/24 05:49 Dose: 50 mls/hr Documented By: Infusion: 09/09/24 05:49 Dose: Infused Documented By: Admin: 09/09/24 03:53 Dose: 50 mls/hr Documented By: LILIA Insulin Aspart (Insulin Aspart Per Unit Charge) 0 units SC ACHS SHERMAN Stop: 10/09/24 04:14 Last Admin: 09/09/24 04:56 Dose: Not Given Documented By: LILIA Co-signed By: WALI Discontinued Medications Sodium Chloride (Nss) 500 mls @ 999 mls/hr IV .Q31M ONE Stop: 09/08/24 22:09 Last Infusion: 09/08/24 22:37 Dose: Infused Documented By: Admin: 09/08/24 21:58 Dose: 999 mls/hr Documented By: ROSINA Miscellaneous (Patient's Height &/Or Weight Needed) 1 each N/A Q2H SHERMAN Stop: 10/09/24 03:44 Last Admin: 09/09/24 03:53 Dose: 1 each Documented By: LILIA Ondansetron HCl (Ondansetron Inj 2 Mg/Ml 2 Ml Vial) 4 mg IV NOW STA Stop: 09/08/24 21:40 Last Admin: 09/08/24 21:59 Dose: 4 mg Documented By: ROSINA Imaging Data Radiologist's Impression: Chest X-Ray 09/08/24 20:16 Exam(s): XR CXR 1 VIEW EXAM: XR Chest, 1 View CLINICAL HISTORY: Reason for exam: weakness. TECHNIQUE: Frontal view of the chest. COMPARISON: Prior chest x-ray from 08/13/2024. FINDINGS: Lungs: Unremarkable. No consolidation. Pleural space: Unremarkable. No pneumothorax. Heart: Moderate cardiomegaly. Mediastinum: Unremarkable. Normal mediastinal contour. Bones/joints: Unremarkable. No acute fracture. IMPRESSION: No evidence of acute cardiopulmonary process. Electronically signed by: Elba Clay MD 09/08/24 22:25 PM Brain MRI 09/08/24 21:39 Exam(s): MRI HEAD Without Contrast EXAM: MR Head Without Intravenous Contrast CLINICAL HISTORY: Reason for exam: weakness, blurry vision, vomiting, h/o stroke. TECHNIQUE: Magnetic resonance images of the head/brain without intravenous contrast in multiple planes. COMPARISON: Prior brain MRI from August 13, 2024. FINDINGS: Brain: There is a late subacute ischemic injury of the left capsule and Remote Ischemic Injury of the Right Capsule. Mild Nonspecific Changes. The Flow Voids at the Base of the Brain Are Intact. No mass. No hemorrhage. No acute infarct. Ventricles: Mild ventriculomegaly. Bones/joints: Unremarkable. No acute fracture. Sinuses: Unremarkable as visualized. No acute sinusitis. Mastoid air cells: Unremarkable as visualized. No mastoid effusion. Orbits: Bilateral lens replacements. IMPRESSION: No evidence of acute intracranial pathology. Electronically signed by: Elba Clay MD 09/09/24 01:[address] 09/08/24 21:39 CR Exam(s): CT HEAD Without Contrast EXAM: CT Head Without Intravenous Contrast CLINICAL HISTORY: Reason for exam: weakness, blurry vision, vomiting. TECHNIQUE: Axial computed tomography images of the head/brain without intravenous contrast. CTDI is 37.01 mGy and DLP is 703.85 mGy-cm. Automated exposure control was utilized for the study. A dose lowering technique was utilized adhering to the principles of ALARA. COMPARISON: Prior head CT from August 17, 2024. FINDINGS: Brain: Subacute ischemic injury of the right capsule. Remote ischemic injury of the left. No hemorrhage. No significant white matter disease. No edema. Ventricles: Mild ventriculomegaly. Bones/joints: Unremarkable. No acute fracture. Soft tissues: Unremarkable. Sinuses: Unremarkable as visualized. No acute sinusitis. Mastoid air cells: Unremarkable as visualized. No mastoid effusion. IMPRESSION: Subacute ischemic injury of the right capsule. No evidence of hemorrhagic transformation Communications: Verify Receipt Electronically signed by: Elba Clay MD 09/08/24 23:08 PM Lumbar Spine MRI 09/08/24 21:39 Exam(s): MRI L SPINE Without Contrast EXAM: MR Lumbar Spine Without Intravenous Contrast CLINICAL HISTORY: Reason for exam: R>L leg weakness, urinary incontinence. TECHNIQUE: Magnetic resonance images of the lumbar spine without intravenous contrast in multiple planes. COMPARISON: No relevant prior studies available. FINDINGS: Vertebrae: There are 5 lumbar type vertebral bodies with a mild generalized curve to the right and shallow lumbar lordosis. There is normal vertebral body height and alignment. The bone marrow signal is heterogeneous with reactive endplate changes. No acute fracture. Spinal cord: The conus is normal size, shape and signal characteristics, terminating at L1-L2. Soft tissues: Advanced atrophy of the ileus psoas, paraspinous and intraspinous musculature. The aorta and IVC flow voids are intact. Tiny right renal cyst. DISCS/SPINAL CANAL/NEURAL FORAMINA: L1-L2: There is mild disc degeneration with annular disc bulge flattening the ventral thecal sac. L2-L3: There is mild disc degeneration with annular disc bulge asymmetric to the left flattening the ventral thecal sac with disc extending into the neural foramina without impingement or significant stenosis. L3-L4: Moderate disc degeneration with annular disc bulge causing a mild left subarticular recess stenosis without evidence of neural impingement with the disc extending into the neural foramina with evidence of impingement or significant stenosis. L4-L5: Advanced disc degeneration with annular disc bulge asymmetric to the left causing a mild subarticular recess stenosis with disc and osteophyte extend to the neural foramina causing a mild left stenosis without evidence of neural impingement. L5-S1: There is mild disc degeneration with annular disc bulge asymmetric to the left causing a mild subarticular recess stenosis with disc extend into the neural foramina causing mild bilateral stenosis without evidence of neural impingement. IMPRESSION: 1. 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 2. There is no spinal canal stenosis. 3. There is a mild left L4-5 and mild bilateral L5-S1 neuroforaminal stenosis without evidence of neural impingement. 4. No evidence of fracture, infection, tumor or arachnoiditis. Electronically signed by: Elba Clay MD 09/09/24 01:16 AM Discharge Plan Visit Data Chief Complaint: Weakness Stated Complaint: LEG WEAK, ED Provider: [facility] Midlevel Provider: Alexandra Wilson Discharge Problem: General weakness, Change in mental status, Weakness of both lower extremities Patient Disposition: Admitted As Inpatient Condition: Good Discharge Instructions Interventions: ED Discharge Assessment Last Done: 09/09/24 05:11 Discharge Problem: Change in mental status Qualifiers: Altered mental status type: unspecified Qualified Code(s): R41.82 - Altered mental status, unspecified
[2024-09-08] MEDS: SODIUM CHLORIDE 0.9% 500 ML IV ONE (21:58)
[2024-09-08] MEDS: ONDANSETRON INJ 2 MG/ML 2 ML VIAL IV STA (21:59)
--- NOTE | 2024-09-08 22:26 | XRay Report ---
Exam(s): XR CXR 1 VIEW EXAM: XR Chest, 1 View CLINICAL HISTORY: Reason for exam: weakness. TECHNIQUE: Frontal view of the chest. COMPARISON: Prior chest x-ray from 08/13/2024. FINDINGS: Lungs: Unremarkable. No consolidation. Pleural space: Unremarkable. No pneumothorax. Heart: Moderate cardiomegaly. Mediastinum: Unremarkable. Normal mediastinal contour. Bones/joints: Unremarkable. No acute fracture. IMPRESSION: No evidence of acute cardiopulmonary process. Electronically signed by: Elba Clay MD 09/08/24 22:25 PM
--- NOTE | 2024-09-08 23:10 | CT Scan Report ---
Exam(s): CT HEAD Without Contrast EXAM: CT Head Without Intravenous Contrast CLINICAL HISTORY: Reason for exam: weakness, blurry vision, vomiting. TECHNIQUE: Axial computed tomography images of the head/brain without intravenous contrast. CTDI is 37.01 mGy and DLP is 703.85 mGy-cm. Automated exposure control was utilized for the study. A dose lowering technique was utilized adhering to the principles of ALARA. COMPARISON: Prior head CT from August 17, 2024. FINDINGS: Brain: Subacute ischemic injury of the right capsule. Remote ischemic injury of the left. No hemorrhage. No significant white matter disease. No edema. Ventricles: Mild ventriculomegaly. Bones/joints: Unremarkable. No acute fracture. Soft tissues: Unremarkable. Sinuses: Unremarkable as visualized. No acute sinusitis. Mastoid air cells: Unremarkable as visualized. No mastoid effusion. IMPRESSION: Subacute ischemic injury of the right capsule. No evidence of hemorrhagic transformation Communications: Verify Receipt Electronically signed by: Elba Clay MD 09/08/24 23:08 PM
--- NOTE | 2024-09-08 23:20 | Emergency Department Note ---
ED Visit Note I was consulted by the Advanced Practice Provider. I personally made or approved the management plan for the patient. I performed a substantive portion of the visit. This includes the aspects of: MDM. .
[2024-09-08 23:38] LABS: Adenovirus PCR Not Detected (NotDetected); Bordetella parapertussis PCR Not Detected (NotDetected); Bordetella pertussis PCR Not Detected (NotDetected); Chlamydia pneumoniae PCR Not Detected (NotDetected); Coronavirus 229E PCR Not Detected (NotDetected); Coronavirus CoV-2 (COVID19)PCR Not Detected (NotDetected); Coronavirus HKU1 PCR Not Detected (NotDetected); Coronavirus NL63 PCR Not Detected (NotDetected); Coronavirus OC43PCR Not Detected (NotDetected); Human Metapneumovirus PCR Not Detected (NotDetected); Influenza A PCR Not Detected (NotDetected); Influenza B PCR Not Detected (NotDetected); Mycoplasma pneumoniae PCR Not Detected (NotDetected); Parainfluenza Virus 1 PCR Not Detected (NotDetected); Parainfluenza Virus 2 PCR Not Detected (NotDetected); Parainfluenza Virus 3 PCR Not Detected (NotDetected); Parainfluenza Virus 4 PCR Not Detected (NotDetected); Respiratory Syncytial VirusPCR Not Detected (NotDetected); Rhinovirus/Enterovirus PCR Not Detected (NotDetected)
--- NOTE | 2024-09-09 01:10 | Magnetic Resonance Report ---
Exam(s): MRI HEAD Without Contrast EXAM: MR Head Without Intravenous Contrast CLINICAL HISTORY: Reason for exam: weakness, blurry vision, vomiting, h/o stroke. TECHNIQUE: Magnetic resonance images of the head/brain without intravenous contrast in multiple planes. COMPARISON: Prior brain MRI from August 13, 2024. FINDINGS: Brain: There is a late subacute ischemic injury of the left capsule and Remote Ischemic Injury of the Right Capsule. Mild Nonspecific Changes. The Flow Voids at the Base of the Brain Are Intact. No mass. No hemorrhage. No acute infarct. Ventricles: Mild ventriculomegaly. Bones/joints: Unremarkable. No acute fracture. Sinuses: Unremarkable as visualized. No acute sinusitis. Mastoid air cells: Unremarkable as visualized. No mastoid effusion. Orbits: Bilateral lens replacements. IMPRESSION: No evidence of acute intracranial pathology. Electronically signed by: Elba Clay MD 09/09/24 01:09 AM
--- NOTE | 2024-09-09 01:17 | Magnetic Resonance Report ---
Exam(s): MRI L SPINE Without Contrast EXAM: MR Lumbar Spine Without Intravenous Contrast CLINICAL HISTORY: Reason for exam: R>L leg weakness, urinary incontinence. TECHNIQUE: Magnetic resonance images of the lumbar spine without intravenous contrast in multiple planes. COMPARISON: No relevant prior studies available. FINDINGS: Vertebrae: There are 5 lumbar type vertebral bodies with a mild generalized curve to the right and shallow lumbar lordosis. There is normal vertebral body height and alignment. The bone marrow signal is heterogeneous with reactive endplate changes. No acute fracture. Spinal cord: The conus is normal size, shape and signal characteristics, terminating at L1-L2. Soft tissues: Advanced atrophy of the ileus psoas, paraspinous and intraspinous musculature. The aorta and IVC flow voids are intact. Tiny right renal cyst. DISCS/SPINAL CANAL/NEURAL FORAMINA: L1-L2: There is mild disc degeneration with annular disc bulge flattening the ventral thecal sac. L2-L3: There is mild disc degeneration with annular disc bulge asymmetric to the left flattening the ventral thecal sac with disc extending into the neural foramina without impingement or significant stenosis. L3-L4: Moderate disc degeneration with annular disc bulge causing a mild left subarticular recess stenosis without evidence of neural impingement with the disc extending into the neural foramina with evidence of impingement or significant stenosis. L4-L5: Advanced disc degeneration with annular disc bulge asymmetric to the left causing a mild subarticular recess stenosis with disc and osteophyte extend to the neural foramina causing a mild left stenosis without evidence of neural impingement. L5-S1: There is mild disc degeneration with annular disc bulge asymmetric to the left causing a mild subarticular recess stenosis with disc extend into the neural foramina causing mild bilateral stenosis without evidence of neural impingement. IMPRESSION: 1. 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 2. There is no spinal canal stenosis. 3. There is a mild left L4-5 and mild bilateral L5-S1 neuroforaminal stenosis without evidence of neural impingement. 4. No evidence of fracture, infection, tumor or arachnoiditis. Electronically signed by: Elba Clay MD 09/09/24 01:16 AM
--- NOTE | 2024-09-09 02:34 | History & Physical Report ---
Date of Service September 09, 2024 Assessment & Plan (1) Weakness: (2) Hypomagnesemia: Plan 84-year-old female PMHx previous CVA 07/2024, A-fib on Eliquis, HTN, HLD, CAD, T2DM, OA, and OP presenting to ED for weakness in bilateral lower extremities, blurriness in the eyes for the past 2 days. Recent hospital admission 08/13/2024 to 08/18/2024 for CVA presenting as weakness. Workup in ED on admission revealing no gross lab abnormalities with exception of slightly elevated BUN/creatinine ratio. EKG does reveal the patient is in A-fib, which is also noted per her history and patient is anticoagulated. Head CT does reveal subacute ischemic injury to the right capsule. MRI of the brain and lumbar spine without acute findings. Pending UA. #BLE weakness/Ambulatory dysfunction Presenting w/ BLE weakness starting ~ 2 days [employer] but worsening on day of arrival, unable to get herself off of toilet, with associated blurring of vision x 1 episode the day of arrival; No neuro deficits on exam, no current symptoms aside from discomfort in BLE; no bowel/bladder incontinence, no saddle anesthesia. Patient is scheduled to have an MRI of the brain next week for symptoms. ABCD2 score 4 (age, clinical features, duration, history of DM). R side affected in prior CVA, some residual symptoms present. Symptoms very similar to prior CVA. Suspect that symptoms multifactorial w/ prior CVA vs lumbar spine MRI findings vs OA. - Fall precautions - CT head subacute ischemic injury of the right capsule, no evidence of hemorrhagic transformation - Brain MRI w/o acute pathology; Lumbar spine MRI w/ DDD in multiple areas but no impingement or acute findings. - Echo with bubble 08/14/2024 A-fib, AV sclerosis, concentric LVH, EF 55 to 60%, LV moderately dilated, moderate apical trabeculations and dilatation, RVS function borderline reduced, moderately dilated LA, moderate/severely dilated RA, no evidence of ASD - 08/14/2024 - A1c 7.8%, lipids total 138, LDL 71, HDL 32, triglycerides 175, on rosuvastatin 20mg - Troponin < 2.3; EKG A-fib, prior infarcts, rate at 94 bpm - UA pending - Takes Plavix 75 mg daily, no DAPT - PT/OT order placed- appreciate input + recs #Hypomagnesemia Mg found to be 1.5 on admission. - MgSO4 4g IV now - BMP am #A-fib, permanent, on Eliquis Previous history of permanent A-fib, on Eliquis; initially diagnosed around 2018. Asymptomatic. - EKG on admission showed A-fib, rate 94 bpm; telemetry revealing A-fib, rate ~ 80-90s; most recent echo July 2024, pending repeat echo - TSH 0.938, magnesium pending - Anticoagulated with Eliquis; rate controlled with metoprolol and nifedipine; no rhythm control medications #T2DM H/o DMT2, glimepiride and metformin at home. - Most recent A1C July 2024, 7.8% - Hold oral agents; SSI with target BSG range 110-140mg/dL, CF 35, carb ratio 12 - BSG ACHS - Pharm glycemic management consult placed, appreciate input - adjust regimen as needed #HTN- nifedipine 30mg po, metoprolol 25mg BID po #HLD/CAD- Rosuvastatin 20mg #OP- calcium/vitamin D supplementation, s/p Prolia x 3 (last dose 07/29/2023), and Reclast x 1 (last dose 05/2023) Of note, the patient had a very unpleasant experience during her stay at [facility] and is requesting that if services as such are required again, [facility] be completely removed as an option. Case management consult placed to inform of such. Dispo: Admit, med/tele VTE prophylaxis: Eliquis This document was dictated utilizing [employer]. Please excuse any grammatical errors that may be secondary to use of this software. Admission and Anticipated Discharge Date Admission Date: 09/09/2024 History of Present Illness Chief Complaint: Weakness BLE Primary Care Provider: Claudette Brar MD 84-year-old female PMHx previous CVA 07/2024, A-fib on Eliquis, HTN, HLD, CAD, T 2DM, OA, and OP presenting to ED for weakness in bilateral lower extremities, blurriness in the eyes for the past 2 days. Recent hospital admission 08/13/2024 to 08/18/2024 for CVA presenting as weakness. Patient was recently discharged from [facility] on 09/06/2024. The evening of discharge from [facility] she seems to have been doing better, however later into that evening and going into the day of arrival she seemed to be having more weakness and discomfort in bilateral legs. Reports of some confusion and increased tiredness as well. Was at her PCP visit today and brain MRI was ordered for the following week, but once she returned home her daughter noted that she seemed to "not be herself." The patinet went to sleep for a nap after her appointment. She awoke and went to use the restroom, but when she went to get off the toilet she said she could not feel her legs and felt weak. Her daughter assisted in standing, but the pt continued to feel as though she was going to fall over. Denies falls or syncopal episodes. Only complaint is that she has been unable to have a BM, but patient's daughter states that she did have a BM during this episode and it appeared to be normal in the toilet. Pt states that she is just uncomfortable, but cannot add more to this. Had 1 episode of emesis in the ED waiting room but did not have any nausea or abdominal pain prior to this. Ate [employer] for lunch. Feels more cold than usual. Denying chest pain, shortness of breath, palpitations, abdominal pain, N/D, numbness/tingling, LUTS, fever/chills, or URI symptoms. Patient took her daily medications the day of arrival. Upon arrival, patient was found to have no evidence of acute infection as supported by CBC, no gross electrolyte abnormalities with exception of a slightly elevated BUN/creatinine ratio and a normal TSH and troponin level. BioFire was negative and CXR revealed no acute findings. CT of the head did reveal subacute ischemic injury of the right capsule but without evidence of hemorrhagic transformation. MRI of the brain and lumbar spine ordered, without acute findings. UA pending. Received zofran and 500mL NSS in ED. Please see Dr. Connor's attestation for adjustments/additions to treatment plan. Allergies Allergy/AdvReac Type Severity Reaction Status Date / Time cefaclor Allergy Intermediate RASH Verified 09/08/24 11:07 oxytetracycline Allergy Unknown UNSURE Verified 09/08/24 11:07 polymyxin B Allergy Unknown UNSURE Verified 09/08/24 11:07 metformin AdvReac Intermediate Diarrhea Verified 09/08/24 11:07 erythromycin base AdvReac Mild GI UPSET Verified 09/08/24 11:07 Sulfa (Sulfonamide AdvReac Mild N/V Verified 09/08/24 11:07 Antibiotics) Tetracyclines AdvReac Mild TERRAMYCIN- Verified 09/08/24 11:07 DIARRHEA ozempic AdvReac Intermediate Gastrointestinal Uncoded 09/08/24 11:07 Upset Home Medications Medication Instructions Recorded Confirmed Type cholecalciferol (vitamin D3) 25 3,000 units PO DAILY #90 caps 02/09/19 09/09/24 History mcg (1,000 unit) capsule apixaban 5 mg tablet (Eliquis) 5 mg PO BID #180 tabs 12/20/21 09/09/24 Rx blood-glucose meter (Prodigy #1 ea 05/16/22 09/08/24 Rx Autocode Meter kit) hydrocortisone 2.5 % topical cream 1 applic ID DAILY PRN hemorrhoids 12/03/22 09/09/24 Rx with perineal applicator #30 grams (Proctozone-HC) acetaminophen 500 mg capsule 500 mg PO Q6H PRN Pain 06/12/23 09/09/24 History metoprolol succinate 25 mg 25 mg PO BID #200 tabs 11/13/23 09/08/24 Rx tablet,extended release 24 hr blood sugar diagnostic #300 ea 03/04/24 09/08/24 Rx lancets 28 gauge (Prodigy Lancets) #300 ea 03/04/24 09/08/24 Rx nifedipine 30 mg tablet,extended 30 mg PO DAILY #90 tabs 03/23/24 09/08/24 Rx release metformin 500 mg tablet 500 mg PO DAILY #100 tabs 04/07/24 09/08/24 Rx glimepiride 2 mg tablet 2 mg PO DAILY #90 tabs 05/18/24 09/09/24 Rx rosuvastatin 20 mg tablet 20 mg PO QAM #0 tabs 08/18/24 09/08/24 Rx clopidogrel 75 mg tablet 75 mg PO QAM #7 tabs 09/08/24 09/08/24 Rx Past Med/Surg History Problem List (Updated 09/09/24 @ 06:51 by Alexandra Wilson PA-C) Weakness of both lower extremities (Acute) Change in mental status (Acute) General weakness (Acute) Thyroid nodule Fatigue (Acute) Urinary frequency (Acute) Weakness (Acute) Pulmonary nodule Osteoarthritis Osteoporosis Coronary artery calcification (~02/2021) Type 2 diabetes mellitus (Chronic) Insomnia (Acute) Vitamin D deficiency (Chronic ~06/18/23) Medical History Stroke-like symptoms Weakness CVA (cerebral vascular accident) Type 2 diabetes mellitus with hyperglycemia Permanent atrial fibrillation Hypertension Dyslipidemia Persistent atrial fibrillation Abnormal CT scan, esophagus Hot flash not due to menopause Basal cell carcinoma (BCC) Schatzki's ring Nontoxic multinodular goiter Interstitial lung disease Hepatic steatosis no concerns on CT abd 03/07 Gout Gastroesophageal reflux disease Allergic rhinitis Surgical History H/O total hysterectomy S/P tonsillectomy and adenoidectomy S/P FRANK-BSO Status post Mohs surgery multiple, 2007 on. BCC S/P cataract surgery b/l History of lung biopsy (~2016) 2017 thoracoscopy w/ wedge resection of lung. Dr Sánchez. H/O breast biopsy 2016 H/O: hemorrhoidectomy 2006 History of cholecystectomy laparoscopic Hx of appendectomy Family History Brother Myocardial infarction Father Alcoholism Atherosclerosis Cardiac disorder Diabetes Hypertension Mother Atherosclerosis Diabetes Hypertension Unknown COPD (chronic obstructive pulmonary disease) Denies family history of Ovarian cancer Prostate cancer Breast cancer Lung cancer Colorectal cancer Social History Smoking Status: Never smoker Second Hand Exposure: No; Do You Dip or Chew Tobacco: No; Hx Alcohol Use: No Hx Substance Use: No Preferred Language: Mozambican Communication Ability: Effective Visual Impairment: Limited Hearing Ability: Hard of Hearing Inner Tube Cutter Required: No Beliefs That Will Affect Care: None marital status: Current Living Situation: Spouse Current Living Situation Comment: current occupational status: retired How many Children do You have: 2 Other Information That Helps Us Care for You: No Feels Safe at Home: Yes Safety Concerns: Feels Safe At This Time Childhood Exposure to Second-Hand Smoke: No Diet: regular caffeine: No during the past year weight has: remained stable Dental Care, Regularly: Yes Physical Activity Frequency: Does not Exercise Seatbelt Use: always Sunscreen Use: No (sometimes- does wear a hat and long sleeves ) Assistive Devices: Walker Review of Systems Review of Systems: All systems reviewed & are unremarkable except as noted in Subjective Physical Exam Physical Exam: General: No acute distress, appears to not feel well Skin: Warm and dry Head: Normocephalic, atraumatic Eyes: PERRL, conjunctivae clear, sclera non-icteric; EOM intact ENT: External ear and ear canal without swelling; nose atraumatic; good dentition, tongue normal appearance, pharynx normal without tonsillar swelling or exudate; Oropharynx appears dry. Neck: Supple, no LAD; no JVD Cardio: Regular rate, irregularly irregular rhythm, no M/G/R, S1 and S2 normal Resp: No respiratory distress, Lungs CTA in all lobes bilaterally, no wheezes, rales, or rhonchi Abdomen: Soft, symmetric, nontender; no distention; No masses or hepatosplenomegaly; Bowel sounds normoactive MSK: No deformities, full ROM throughout; pulses palpable and equal; no edema. Neuro: II- PERRL, no VF deficits III, IV, - EOMs intact, no deviation, no nystagmus V- Normal sensation in all locations VII- No asymmetry, no nasolabial fold flattening VIII- Normal hearing to speech IX, X- Normal palatal elevation, no ulnar deviation XI- 5/5 head turn + shoulder shrug bilaterally XII- Midline tongue protrusion Motor: 4/5 strength throughout BUE/BLE, RLE ever so lightly weaker than LLE (R side affected prior CVA) Reflexes: WNL throughout Sensory: Normal sensation throughout, no hemineglect Coordination: Normal [id number], no tremor Gait: Unable to asses; no complaints Psych: Appropriate mood and affect; good judgement and insight. Daughter and present in room at time of visit. Results & Data Results & Data Vital Signs (Past 12 Hours) Vital Signs Temp Pulse Pulse Resp BP BP Pulse Ox 09/09/24 02:00 109 H 12 142/75 H 100 09/09/24 00:50 106 H 09/09/24 00:27 101 H 14 118/94 96 09/08/24 22:44 97 09/08/24 22:44 102 H 18 101/86 97 09/08/24 20:13 36.3 C L 94 H 20 111/67 97 O2 Del Method 09/09/24 02:00 Room Air 09/09/24 00:50 09/09/24 00:27 Room Air 09/08/24 22:44 Room Air 09/08/24 22:44 Room Air 09/08/24 20:13 Room Air Laboratory Results 09/08/24 09/08/24 22:41 20:32 WBC 7.60 RBC 4.39 Hgb 14.1 Hct 39.4 MCV 89.7 MCH 32.1 MCHC 35.8 RDW Std Deviation 42.0 RDW Coeff of Dusty 12.8 Plt Count 176 MPV 10.5 Immature Gran % (Auto) 0.5 Neut % (Auto) 77.1 Lymph % (Auto) 15.1 [place] % (Auto) 6.2 Eos % (Auto) 0.8 Baso % (Auto) 0.3 Neut # (Auto) 5.86 Lymph # (Auto) 1.15 L [place] # (Auto) 0.47 Eos # (Auto) 0.06 Baso # (Auto) 0.02 Immature Gran # (Auto) 0.04 PT 12.5 H INR 1.2 H Sodium 140 Potassium 3.7 Chloride 106 Carbon Dioxide 23 Anion Gap 11 BUN 20 Creatinine 0.67 Est Cr Clr Drug Dosing Not Reportable eGFR 85.07 BUN/Creatinine Ratio 29.9 H Glucose 232 H Calcium 9.8 Total Bilirubin 0.8 AST 32 ALT 20 Alkaline Phosphatase 62 Troponin I High Sens < 2.3 Total Protein 7.0 Albumin 4.2 Globulin 2.8 Albumin/Globulin Ratio 1.5 TSH 0.938 Adenovirus (PCR) Not Detected B. pertussis DNA (PCR) Not Detected B.parapertussis DNA PCR Not Detected C. pneumoniae DNA (PCR) Not Detected Coronavirus OC43 (PCR) Not Detected Coronavirus HKU1 (PCR) Not Detected Coronavirus 229E (PCR) Not Detected SARS-CoV-2 (PCR) Not Detected Coronavirus NL63 (PCR) Not Detected Human Metapneumovir PCR Not Detected Influenza Type A (PCR) Not Detected Influenza Type B (PCR) Not Detected M. pneumoniae (PCR) Not Detected Parainfluenza 1 (PCR) Not Detected Parainfluenza 2 (PCR) Not Detected Parainfluenza 3 (PCR) Not Detected Parainfluenza 4 (PCR) Not Detected RSV (PCR) Not Detected Entero/Rhino (PCR) Not Detected Diagnostic Findings Chest X-Ray 09/08/24 20:16 Exam(s): XR CXR 1 VIEW EXAM: XR Chest, 1 View CLINICAL HISTORY: Reason for exam: weakness. TECHNIQUE: Frontal view of the chest. COMPARISON: Prior chest x-ray from 08/13/2024. FINDINGS: Lungs: Unremarkable. No consolidation. Pleural space: Unremarkable. No pneumothorax. Heart: Moderate cardiomegaly. Mediastinum: Unremarkable. Normal mediastinal contour. Bones/joints: Unremarkable. No acute fracture. IMPRESSION: No evidence of acute cardiopulmonary process. Electronically signed by: Elba Clay MD 09/08/24 22:25 PM Brain MRI 09/08/24 21:39 Exam(s): MRI HEAD Without Contrast EXAM: MR Head Without Intravenous Contrast CLINICAL HISTORY: Reason for exam: weakness, blurry vision, vomiting, h/o stroke. TECHNIQUE: Magnetic resonance images of the head/brain without intravenous contrast in multiple planes. COMPARISON: Prior brain MRI from August 13, 2024. FINDINGS: Brain: There is a late subacute ischemic injury of the left capsule and Remote Ischemic Injury of the Right Capsule. Mild Nonspecific Changes. The Flow Voids at the Base of the Brain Are Intact. No mass. No hemorrhage. No acute infarct. Ventricles: Mild ventriculomegaly. Bones/joints: Unremarkable. No acute fracture. Sinuses: Unremarkable as visualized. No acute sinusitis. Mastoid air cells: Unremarkable as visualized. No mastoid effusion. Orbits: Bilateral lens replacements. IMPRESSION: No evidence of acute intracranial pathology. Electronically signed by: Elba Clay MD 09/09/24 01:[address] 09/08/24 21:39 CR Exam(s): CT HEAD Without Contrast EXAM: CT Head Without Intravenous Contrast CLINICAL HISTORY: Reason for exam: weakness, blurry vision, vomiting. TECHNIQUE: Axial computed tomography images of the head/brain without intravenous contrast. CTDI is 37.01 mGy and DLP is 703.85 mGy-cm. Automated exposure control was utilized for the study. A dose lowering technique was utilized adhering to the principles of ALARA. COMPARISON: Prior head CT from August 17, 2024. FINDINGS: Brain: Subacute ischemic injury of the right capsule. Remote ischemic injury of the left. No hemorrhage. No significant white matter disease. No edema. Ventricles: Mild ventriculomegaly. Bones/joints: Unremarkable. No acute fracture. Soft tissues: Unremarkable. Sinuses: Unremarkable as visualized. No acute sinusitis. Mastoid air cells: Unremarkable as visualized. No mastoid effusion. IMPRESSION: Subacute ischemic injury of the right capsule. No evidence of hemorrhagic transformation Communications: Verify Receipt Electronically signed by: Elba Clay MD 09/08/24 23:08 PM Lumbar Spine MRI 09/08/24 21:39 Exam(s): MRI L SPINE Without Contrast EXAM: MR Lumbar Spine Without Intravenous Contrast CLINICAL HISTORY: Reason for exam: R>L leg weakness, urinary incontinence. TECHNIQUE: Magnetic resonance images of the lumbar spine without intravenous contrast in multiple planes. COMPARISON: No relevant prior studies available. FINDINGS: Vertebrae: There are 5 lumbar type vertebral bodies with a mild generalized curve to the right and shallow lumbar lordosis. There is normal vertebral body height and alignment. The bone marrow signal is heterogeneous with reactive endplate changes. No acute fracture. Spinal cord: The conus is normal size, shape and signal characteristics, terminating at L1-L2. Soft tissues: Advanced atrophy of the ileus psoas, paraspinous and intraspinous musculature. The aorta and IVC flow voids are intact. Tiny right renal cyst. DISCS/SPINAL CANAL/NEURAL FORAMINA: L1-L2: There is mild disc degeneration with annular disc bulge flattening the ventral thecal sac. L2-L3: There is mild disc degeneration with annular disc bulge asymmetric to the left flattening the ventral thecal sac with disc extending into the neural foramina without impingement or significant stenosis. L3-L4: Moderate disc degeneration with annular disc bulge causing a mild left subarticular recess stenosis without evidence of neural impingement with the disc extending into the neural foramina with evidence of impingement or significant stenosis. L4-L5: Advanced disc degeneration with annular disc bulge asymmetric to the left causing a mild subarticular recess stenosis with disc and osteophyte extend to the neural foramina causing a mild left stenosis without evidence of neural impingement. L5-S1: There is mild disc degeneration with annular disc bulge asymmetric to the left causing a mild subarticular recess stenosis with disc extend into the neural foramina causing mild bilateral stenosis without evidence of neural impingement. IMPRESSION: 1. 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 2. There is no spinal canal stenosis. 3. There is a mild left L4-5 and mild bilateral L5-S1 neuroforaminal stenosis without evidence of neural impingement. 4. No evidence of fracture, infection, tumor or arachnoiditis. Electronically signed by: Elba Clay MD 09/09/24 01:16 AM Medications Administered Ondansetron 4mg IV NSS 500mL IV ECG Additional Comments: A-fib, inferior infarct (06/08/2021), anterior infarct (07/12/2024) 94 bpm, QRS 84, QT/QTc 368/460, PRT */-10, 11 Code Status & VTE Plan Code Status Full Supervising Physician Co-Signing Physician Notes Patient seen and examined, chart reviewed, case discussed with JAVY Acosta and I agree with the assessment and plan as above PG Care Time/CCT Total # of Minutes Spent Total Time Spent with Patient: Total time spent is greater than 50% in coordination of care (as documented) at patient's floor/unit and/or counseling patient: Coding Level of Care Code 58198 INT INP/OBS CARE 3/75MIN Diagnoses Weakness R53.1 Hypomagnesemia E83.42
[2024-09-09 02:44] LABS: Magnesium 1.5 mg/dl (1.7-2.4); Phosphorus 3.2 mg/dl (2.5-4.9)
[2024-09-09] MEDS ORDERED: HYDROCORTISONE HC 2.5% CRM 30GM TUBE EXT PRN (03:22)
[2024-09-09] MEDS ORDERED: GLUCOSE 10 TAB/TUBE PO PRN (03:22)
[2024-09-09] MEDS ORDERED: GLUCAGON FOR INJ 1 MG VIAL SQ PRN (03:22)
[2024-09-09] MEDS ORDERED: GLUCOSE 40% GEL 15 GM TUBE PO PRN (03:22)
[2024-09-09] MEDS ORDERED: PHARMACY GLYCEMIC MGMT CONSULT PRN (03:22)
[2024-09-09] MEDS ORDERED: ONDANSETRON INJ 2 MG/ML 2 ML VIAL IV PRN (03:22)
[2024-09-09] MEDS ORDERED: DEXTROSE 50% 50 ML SYRINGE IV PRN (03:22)
[2024-09-09] MEDS ORDERED: CARBOHYDRATES FOR HYPOGLYCEMIA PO PRN (03:22)
[2024-09-09] MEDS: MAGNESIUM SULFATE / D5W 1 GM/100 ML BAG IV SCH (03:53)
[2024-09-09] MEDS: Patient's HEIGHT &/or WEIGHT Needed SCH (03:53)
[2024-09-09] MEDS: INSULIN ASPART PER UNIT CHARGE SC SCH (04:56)
[2024-09-09] MEDS: APIXABAN 5 MG TABLET PO SCH (07:56)
[2024-09-09] MEDS: METOPROLOL SUCC 25MG EXT REL TAB PO SCH (07:56)
[2024-09-09] MEDS: ROSUVASTATIN CALCIUM 20 MG TAB PO SCH (07:57)
[2024-09-09] MEDS: CLOPIDOGREL BISULFATE 75 MG TAB PO SCH (07:57)
[2024-09-09] MEDS: NIFEdipine EXTENDED REL 30 MG TABCR PO SCH (07:57)
[2024-09-09] MEDS: CHOLECALCIFEROL 25 MCG (1000 UNITS) TAB PO SCH (07:58)
[2024-09-09] MEDS: GLIMEPIRIDE 2 MG TAB PO SCH (08:57)
[2024-09-09] MEDS ORDERED: LANTUS PER UNIT CHARGE SC SCH ×2 (09:00)
[2024-09-09 10:25] LABS: Appearance Urine Clear (Clear); Bilirubin Urine Negative (Negative); Blood Urine Negative (Negative); Color Urine Yellow; Glucose Urine UA 2+ (Negative); Ketones Urine 2+ (Negative); Leukocyte Esterase Urine Negative (Negative); Nitrite Urine Negative (Negative); Protein Urine Negative (Negative); Specific Gravity Urine 1.037 (1.000-1.030); Urobilinogen Urine Negative (Negative)
--- NOTE | 2024-09-09 11:00 | Neurology Consultation ---
Date of Consultation September 09, 2024 Assessment & Plan (1) Weakness of both lower extremities: History of Present Illness Attending Physician: Epifanio Sanchez History of Present Illness S: pt this morning feeling rt leg greater than left weakness that has been fluctuating since few months. she did have stroke likely about a month ago when she had weakness as mri brain showing subacute left subcortical ischemic stroke. chart reviewed. admission HPI: 84-year-old female PMHx previous CVA 07/2024, A-fib on Eliquis, HTN, HLD, CAD, T2DM, OA, and OP presenting to ED for weakness in bilateral lower extremities, blurriness in the eyes for the past 2 days. Recent hospital admission 08/13/2024 to 08/18/2024 for CVA presenting as weakness. Workup in ED on admission revealing no gross lab abnormalities with exception of slightly elevated BUN/creatinine ratio. EKG does reveal the patient is in A-fib, which is also noted per her history and patient is anticoagulated. Head CT does reveal subacute ischemic injury to the right capsule. MRI of the brain and lumbar spine without acute findings. Pending UA. 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 Patient is scheduled to have an MRI of the brain next week for symptoms. ABCD2 score 4 (age, clinical features, duration, history of DM). R side affected in prior CVA, some residual symptoms present. Symptoms very similar to prior CVA. Suspect that symptoms multifactorial w/ prior CVA vs lumbar spine MRI findings vs OA. Allergies Allergy/AdvReac Type Severity Reaction Status Date / Time cefaclor Allergy Intermediate RASH Verified 09/08/24 11:07 oxytetracycline Allergy Unknown UNSURE Verified 09/08/24 11:07 polymyxin B Allergy Unknown UNSURE Verified 09/08/24 11:07 metformin AdvReac Intermediate Diarrhea Verified 09/08/24 11:07 erythromycin base AdvReac Mild GI UPSET Verified 09/08/24 11:07 Sulfa (Sulfonamide AdvReac Mild N/V Verified 09/08/24 11:07 Antibiotics) Tetracyclines AdvReac Mild TERRAMYCIN- Verified 09/08/24 11:07 DIARRHEA ozempic AdvReac Intermediate Gastrointestinal Uncoded 09/08/24 11:07 Upset Home Medications Medication Instructions Recorded Confirmed Type cholecalciferol (vitamin D3) 25 3,000 units PO DAILY #90 caps 02/09/19 09/09/24 History mcg (1,000 unit) capsule apixaban 5 mg tablet (Eliquis) 5 mg PO BID #180 tabs 12/20/21 09/09/24 Rx blood-glucose meter (Prodigy #1 ea 05/16/22 09/08/24 Rx Autocode Meter kit) hydrocortisone 2.5 % topical cream 1 applic NC DAILY PRN hemorrhoids 12/03/22 09/09/24 Rx with perineal applicator #30 grams (Proctozone-HC) acetaminophen 500 mg capsule 500 mg PO Q6H PRN Pain 06/12/23 09/09/24 History metoprolol succinate 25 mg 25 mg PO BID #200 tabs 11/13/23 09/08/24 Rx tablet,extended release 24 hr blood sugar diagnostic #300 ea 03/04/24 09/08/24 Rx lancets 28 gauge (Prodigy Lancets) #300 ea 03/04/24 09/08/24 Rx nifedipine 30 mg tablet,extended 30 mg PO DAILY #90 tabs 03/23/24 09/08/24 Rx release metformin 500 mg tablet 500 mg PO DAILY #100 tabs 04/07/24 09/08/24 Rx glimepiride 2 mg tablet 2 mg PO DAILY #90 tabs 05/18/24 09/09/24 Rx rosuvastatin 20 mg tablet 20 mg PO QAM #0 tabs 08/18/24 09/08/24 Rx clopidogrel 75 mg tablet 75 mg PO QAM #7 tabs 09/08/24 09/08/24 Rx Patient History Medical History Stroke-like symptoms Weakness CVA (cerebral vascular accident) Type 2 diabetes mellitus with hyperglycemia Permanent atrial fibrillation Hypertension Dyslipidemia Persistent atrial fibrillation Abnormal CT scan, esophagus Hot flash not due to menopause Basal cell carcinoma (BCC) Schatzki's ring Nontoxic multinodular goiter Interstitial lung disease Hepatic steatosis no concerns on CT abd 03/07 Gout Gastroesophageal reflux disease Allergic rhinitis Surgical History H/O total hysterectomy S/P tonsillectomy and adenoidectomy S/P FRANK-BSO Status post Mohs surgery multiple, 2007 on. BCC S/P cataract surgery b/l History of lung biopsy (~2016) 2017 thoracoscopy w/ wedge resection of lung. Dr Sánchez. H/O breast biopsy 2016 H/O: hemorrhoidectomy 2006 History of cholecystectomy laparoscopic Hx of appendectomy Family History Brother Myocardial infarction Father Alcoholism Atherosclerosis Cardiac disorder Diabetes Hypertension Mother Atherosclerosis Diabetes Hypertension Unknown COPD (chronic obstructive pulmonary disease) Denies family history of Ovarian cancer Prostate cancer Breast cancer Lung cancer Colorectal cancer Social History Smoking Status: Never smoker Second Hand Exposure: No; Do You Dip or Chew Tobacco: No; Hx Alcohol Use: No Hx Substance Use: No Preferred Language: Portuguese Communication Ability: Effective Visual Impairment: Limited Hearing Ability: Hard of Hearing Supervisor Underwriting Clerks Required: No Beliefs That Will Affect Care: None marital status: Current Living Situation: Spouse Current Living Situation Comment: current occupational status: retired How many Children do You have: 2 Other Information That Helps Us Care for You: No Feels Safe at Home: Yes Safety Concerns: Feels Safe At This Time Childhood Exposure to Second-Hand Smoke: No Diet: regular caffeine: No during the past year weight has: remained stable Dental Care, Regularly: Yes Physical Activity Frequency: Does not Exercise Seatbelt Use: always Sunscreen Use: No (sometimes- does wear a hat and long sleeves ) Assistive Devices: Walker Exam (Neuro) Physical Exam: HEENT: normocephalic grossly Neuro: Mental: AOx4, fluent speech, normal comprehension, no apraxia, no L/R confusion, no neglect CN: PERRL, Full EOM, symmetric face, Motor: No abnormal movements, normal tone, RLE: 3+/5 proximal hip flexion and knee extension, 4+/5 dorsiflexion/plantaflexion. LLE: 4-/5 hip flexion and knee extension. 4+/5 dorsiflexion. Sens: intact to touch b/l grossly Coord: intact DTR: 1+ symb b/l Impression: 84 yo female with b/l leg weakness (rt greater than left) likely from combination of recent subacute stroke and deconditioning from not able to get aggressive rehab therapy. mri L spine without clear radic signs. Recommendations: continue rehab/supportive care to improve her weakness. no further stroke work up needed strict DM control as her numbers are high and worsening DM can also cause more weakness ,e.g. diabetic amyotrophy. otherwise not much to add. call again if new question. discussed with PA. Chart reviewed I have spent more than 50% educating patient about potential diagnosis and neurological evaluation and coordinating care with patient's treatment team. Total time spent (including chart review and coordination of care): 45 min (this includes chart review). Results & Data Vital Signs (Past 12 Hours) Vital Signs Temp Pulse Pulse Resp BP BP Pulse Ox 09/09/24 08:00 09/09/24 07:38 36.7 C 92 H 17 145/84 H 96 09/09/24 05:35 09/09/24 05:35 36.3 C L 101 H 20 136/84 96 09/09/24 05:34 93 H 09/09/24 05:11 101 H 18 105/78 95 09/09/24 05:00 107 H 10 L 99 09/09/24 05:00 105/78 09/09/24 04:30 87 10 L 98 09/09/24 04:03 89 10 L 98 09/09/24 04:00 144/74 H 09/09/24 04:00 144/74 H 09/09/24 04:00 144/74 H 09/09/24 04:00 144/74 H 09/09/24 03:42 98 H 4 L 09/09/24 03:00 120/81 09/09/24 03:00 120/81 09/09/24 03:00 97 H 20 09/09/24 02:48 103 H 7 L 09/09/24 02:00 142/75 H 09/09/24 02:00 142/75 H 09/09/24 02:00 142/75 H 09/09/24 02:00 109 H 12 142/75 H 100 09/09/24 00:50 106 H 09/09/24 00:27 101 H 14 118/94 96 O2 Del Method 09/09/24 08:00 Room Air 09/09/24 07:38 Room Air 09/09/24 05:35 Room Air 09/09/24 05:35 Room Air 09/09/24 05:34 09/09/24 05:11 Room Air 09/09/24 05:00 09/09/24 05:00 09/09/24 04:30 09/09/24 04:03 09/09/24 04:00 09/09/24 04:00 09/09/24 04:00 09/09/24 04:00 09/09/24 03:42 09/09/24 03:00 09/09/24 03:00 09/09/24 03:00 09/09/24 02:48 09/09/24 02:00 09/09/24 02:00 09/09/24 02:00 09/09/24 02:00 Room Air 09/09/24 00:50 09/09/24 00:27 Room Air PG Care Time/CCT Total # of Minutes Spent Total Time Spent with Patient: Total time spent is greater than 50% in coordination of care (as documented) at patient's floor/unit and/or counseling patient: Coding Level of Care Code 25323 IN/OBS CONSULT LVL 3,45M Diagnoses Weakness of both lower extremities R29.898
--- NOTE | 2024-09-09 13:40 | Electrocardiogram Report ---
Test Reason : Blood Pressure : */* mmHG Vent. Rate : 94 BPM Atrial Rate : * BPM P-R Int : * ms QRS Dur : 84 ms QT Int : 368 ms P-R-T Axes : * -10 11 degrees QTcB Int : 460 ms Atrial fibrillation possible Inferior infarct (cited on or before 08-Jun-2021) Poor R wave progression, consider anterior KS vs. lead placement vs. LVH Nonspecific ST abnormality Abnormal ECG When compared with ECG of 13-Aug-2024 11:37, Nonspecific T wave abnormality has replaced inverted T waves in Inferior leads Confirmed by Candelario London ([id number]) on 09/09/2024 1:39:29 PM Referred By: Claudette Brar Confirmed By: Candelario London
[2024-09-09] MEDS: metFORMIN HCL 500 MG TAB PO SCH (15:15)
--- NOTE | 2024-09-09 16:08 | Hospitalist Progress Note ---
Date of Service September 09, 2024- NO BILL Assessment & Plan (1) Weakness: (2) Hypomagnesemia: Plan 84-year-old female PMHx previous CVA 07/2024, A-fib on Eliquis, HTN, HLD, CAD, T2DM, OA, and OP presenting to ED for weakness in bilateral lower extremities, blurriness in the eyes for 2 days. Recent hospital admission 08/13/2024 to 08/18/2024 for CVA presenting as weakness. Workup in ED on admission revealing no gross lab abnormalities with exception of slightly elevated BUN/creatinine ratio. EKG does reveal the patient is in A-fib, which is also noted per her history and patient is anticoagulated. Head CT does reveal subacute ischemic injury to the right capsule. MRI of the brain and lumbar spine without acute findings. 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 Patient is scheduled to have an MRI of the brain next week for symptoms. ABCD2 score 4 (age, clinical features, duration, history of DM). R side affected in prior CVA, some residual symptoms present. Symptoms very similar to prior CVA. Suspect that symptoms multifactorial w/ prior CVA vs lumbar spine MRI findings vs OA. - Fall precautions - CT head subacute ischemic injury of the right capsule, no evidence of hemorrhagic transformation - Brain MRI w/o acute pathology -Lumbar spine MRI w/ DDD in multiple areas but no impingement or acute findings. - Echo with bubble 08/14/2024 A-fib, AV sclerosis, concentric LVH, EF 55 to 60%, LV moderately dilated, moderate apical trabeculations and dilatation, RVS function borderline reduced, moderately dilated LA, moderate/severely dilated RA, no evidence of ASD - 08/14/2024 - A1c 7.8%, lipids total 138, LDL 71, HDL 32, triglycerides 175, on rosuvastatin 20mg - Troponin < 2.3 - EKG A-fib, prior infarcts, rate at 94 bpm - UA negative - Takes Plavix 75 mg daily - neurology consulted - no new stroke on this admission. symptoms are consistent with previous CVA. recommend rehab. - PT/OT - recommending rehab. #Hypomagnesemia Mg found to be 1.5 on admission. - s/p repletion - AM mag #A-fib, permanent, on Eliquis Previous history of permanent A-fib, on Eliquis; initially diagnosed around 2018. Asymptomatic. - EKG on admission showed A-fib, rate 94 bpm; telemetry revealing A-fib, rate ~ 80-90s; most recent echo July 2024, pending repeat echo - TSH 0.938, magnesium pending - Anticoagulated with Eliquis; rate controlled with metoprolol and nifedipine; no rhythm control medications #T2DM H/o DMT2, glimepiride and metformin at home. - Most recent A1C July 2024, 7.8% - Patient refusing insulin therapy while inpatient - resumed outpatient medications. Chronic conditions: HTN- nifedipine 30mg po, metoprolol 25mg BID po HTN/CAD- Rosuvastatin 20mg OP- calcium/vitamin D supplementation, s/p Prolia x 3 (last dose 07/29/2023), and Reclast x 1 (last dose 05/2023) Of note, the patient had a very unpleasant experience during her stay at [facility] and is requesting that if services as such are required again, [facility] be completely removed as an option. Case management consult placed to inform of such. Dispo: Admit, med/tele VTE prophylaxis: Ana Updated at bedside 09/09 Spoke w/ neurology 09/09. Admission and Anticipated Discharge Date Admission Date: September 09, 2024 Subjective patient seen and examined at bedside. Neurology physician present. Patient complained of weakness and fatigue today. She denied any further symptoms. Physical Exam Constitutional: WD/WN, vitals as above Eyes: PERRL, conjunctivae normal, anicteric sclerae Respiratory: normal respiratory effort, lungs clear to auscultation Cardiovascular: irregulary, irregular, no edema Results & Data Results & Data Vital Signs (Past 12 Hours) Vital Signs Temp Pulse Pulse Resp BP BP Pulse Ox 09/09/24 13:49 79 09/09/24 12:13 94 H 09/09/24 11:31 36.4 C L 77 18 123/73 96 09/09/24 08:00 09/09/24 07:38 36.7 C 92 H 17 145/84 H 96 09/09/24 05:35 09/09/24 05:35 36.3 C L 101 H 20 136/84 96 09/09/24 05:34 93 H 09/09/24 05:11 101 H 18 105/78 95 09/09/24 05:00 107 H 10 L 99 09/09/24 05:00 105/78 09/09/24 04:30 87 10 L 98 O2 Del Method 09/09/24 13:49 09/09/24 12:13 09/09/24 11:31 Room Air 09/09/24 08:00 Room Air 09/09/24 07:38 Room Air 09/09/24 05:35 Room Air 09/09/24 05:35 Room Air 09/09/24 05:34 09/09/24 05:11 Room Air 09/09/24 05:00 09/09/24 05:00 09/09/24 04:30 PG Care Time/CCT Total # of Minutes Spent Total Time Spent with Patient: Total time spent is greater than 50% in coordination of care (as documented) at patient's floor/unit and/or counseling patient: Coding Level of Care Code None Diagnoses Weakness R53.1 Hypomagnesemia E83.42
[2024-09-10] MEDS: LOPERAMIDE HCL 2 MG CAP PO PRN (03:23)
[2024-09-10 08:49] LABS: Hematocrit (blood only) 32.3 % (37.0-47.0); Hemoglobin 11.5 g/dl (12.0-16.0); Mean Corpuscular Hgb Conc 35.6 g/dL (32.0-36.0); Mean Platelet Volume 10.7 fL (9.4-12.4); Platelet Count 101 K/uL (130-400); RDW Coefficient of Variation 12.9 % (11.5-14.5); RDW Standard Deviation 42.7 fL (36.4-46.3); Red Blood Count 3.59 M/uL (4.20-5.40); White Blood Count 3.52 K/ul (4.8-10.8)
[2024-09-10 09:12] LABS: BUN Creatinine Ratio 26.2 (10-20); Calcium 8.6 mg/dl (8.6-10.3); Creatinine Clr Calc Pharmacy 62.3 ml/min; Potassium 3.4 mmol/L (3.5-5.1)
[2024-09-10] MEDS: PSYLLIUM or GUAR GUM FIBER 4GM PACKET PO SCH (10:10)
[2024-09-10] MEDS: POTASSIUM CHLORIDE CRTAB 20 MEQ TABCR PO STA (10:17)
[2024-09-10] MEDS: POTASSIUM CHLORIDE PWD 20 MEQ PACK PO STA (11:30)
--- NOTE | 2024-09-10 14:48 | Hospitalist Progress Note ---
Date of Service September 10, 2024 Assessment & Plan (1) Weakness: (2) Hypomagnesemia: Plan 84-year-old female PMHx previous CVA 07/2024, A-fib on Eliquis, HTN, HLD, CAD, T2DM, OA, and OP presenting to ED for weakness in bilateral lower extremities, blurriness in the eyes x 2 days. Recent hospital admission 08/13/2024 to 08/18/2024 for CVA presenting as weakness. Workup in ED on admission revealing no gross lab abnormalities with exception of slightly elevated BUN/creatinine ratio. EKG does reveal the patient is in A-fib, which is also noted per her history and patient is anticoagulated. Head CT does reveal subacute ischemic injury to the right capsule. MRI of the brain and lumbar spine without acute findings. Pending UA. #BLE weakness/Ambulatory dysfunction - CT head subacute ischemic injury of the right capsule, no evidence of hemorrhagic transformation - Brain MRI w/o acute pathology; Lumbar spine MRI w/ DDD in multiple areas but no impingement or acute findings. - Echo with bubble 08/14/2024 A-fib, AV sclerosis, concentric LVH, EF 55 to 60%, LV moderately dilated, moderate apical trabeculations and dilatation, RVS function borderline reduced, moderately dilated LA, moderate/severely dilated RA, no evidence of ASD - 08/14/2024 - A1c 7.8%, lipids total 138, LDL 71, HDL 32, triglycerides 175, on rosuvastatin 20mg - Troponin < 2.3; EKG A-fib, prior infarcts, rate at 94 bpm - UA negative - Takes Plavix 75 mg daily, no DAPT -neurology consulted - no new stroke this admission. symptoms consistent with previous CVA. recommending rehab. - PT/OT order placed- rec rehab. - CBC stable, BMP w/ mildly low K, s/p replacement. #Hypomagnesemia Mg found to be 1.5 on admission. Repeat 09/10 stable at 2 replete as necessary. #A-fib, permanent, on Eliquis Previous history of permanent A-fib, on Eliquis; initially diagnosed around 2018. Asymptomatic. - EKG on admission showed A-fib, rate 94 bpm - TSH 0.938 - Anticoagulated with Eliquis; rate controlled with metoprolol and nifedipine; no rhythm control medications #T2DM H/o DMT2, glimepiride and metformin - continue inpatient Patient refusing insulin. Chronic conditions: HTN- nifedipine 30mg po, metoprolol 25mg BID po HLD/CAD- Rosuvastatin 20mg OP- calcium/vitamin D supplementation, s/p Prolia x 3 (last dose 07/29/2023), and Reclast x 1 (last dose 05/2023) Of note, the patient had a very unpleasant experience during her stay at [facility] and is requesting that if services as such are required again, [facility] be completely removed as an option. Case management consult placed to inform of such. Patient medically stable for discharge pending placement at a rehab facility as of 09/10. Dispo: Admit, med/tele VTE prophylaxis: Ana Updated at [facility] on 09/09. Admission and Anticipated Discharge Date Admission Date: September 09, 2024 Subjective Patient seen and examined this morning. Patients complaints today included fatigue and weakness. She reports she slept majority of day yesterday. She denied any additional complaints. Physical Exam Constitutional: WD/WN, vitals as above Respiratory: normal respiratory effort, lungs clear to auscultation Cardiovascular: RRR, no murmur, no edema Psychiatric: A+Ox3, euthymic affect Results & Data Results & Data Vital Signs (Past 12 Hours) Vital Signs Temp Pulse Resp BP Pulse Ox O2 Del Method 09/10/24 12:07 36.6 C 77 18 126/83 98 Room Air 09/10/24 10:45 Room Air 09/10/24 08:36 36.6 C 74 18 116/71 97 Room Air PG Care Time/CCT Total # of Minutes Spent Total Time Spent with Patient: Total time spent is greater than 50% in coordination of care (as documented) at patient's floor/unit and/or counseling patient: Coding Level of Care Code 05555 SUB INP/OBS CARE 2/35MIN Diagnoses Weakness R53.1 Hypomagnesemia E83.42
--- NOTE | 2024-09-11 14:12 | Hospitalist Progress Note ---
Date of Service September 11, 2024 Assessment & Plan (1) Weakness: (2) Hypomagnesemia: (3) Difficulty swallowing pills: Plan 84-year-old female PMHx previous CVA 07/2024, A-fib on Eliquis, HTN, HLD, CAD, T2DM, OA, and OP presenting to ED for weakness in bilateral lower extremities, blurriness in the eyes x 2 days. Recent hospital admission 08/13/2024 to 08/18/2024 for CVA presenting as weakness. Workup in ED on admission revealing no gross lab abnormalities with exception of slightly elevated BUN/creatinine ratio. EKG does reveal the patient is in A-fib, which is also noted per her history and patient is anticoagulated. Head CT does reveal subacute ischemic injury to the right capsule. MRI of the brain and lumbar spine without acute findings. Pending UA. #BLE weakness/Ambulatory dysfunction - CT head subacute ischemic injury of the right capsule, no evidence of hemorrhagic transformation - Brain MRI w/o acute pathology; Lumbar spine MRI w/ DDD in multiple areas but no impingement or acute findings. - Echo with bubble 08/14/2024 A-fib, AV sclerosis, concentric LVH, EF 55 to 60%, LV moderately dilated, moderate apical trabeculations and dilatation, RVS function borderline reduced, moderately dilated LA, moderate/severely dilated RA, no evidence of ASD - 08/14/2024 - A1c 7.8%, lipids total 138, LDL 71, HDL 32, triglycerides 175, on rosuvastatin 20mg - Troponin < 2.3; EKG A-fib, prior infarcts, rate at 94 bpm - UA negative - Takes Plavix 75 mg daily, no DAPT - Neurology consulted - no new stroke this admission. symptoms consistent with previous CVA. recommending rehab. - PT/OT order placed- rec rehab. - CBC stable, BMP w/ mildly low K s/p replacement this admission. Repeat CBC, BMP tomorrow #Hypomagnesemia Mg found to be 1.5 on admission. Repeat 09/10 stable at 2 replete as necessary. Mag in AM #A-fib, permanent, on Eliquis Previous history of permanent A-fib, on Eliquis; initially diagnosed around 2019. Asymptomatic. - EKG on admission showed A-fib, rate 94 bpm - TSH 0.938 - Anticoagulated with Eliquis; rate controlled with metoprolol and nifedipine; no rhythm control medications #T2DM H/o DMT2, glimepiride and metformin - continue inpatient Patient refusing insulin. #Difficulty swallowing pills This is not new for the patient and occurs intermittently Speech eval and treat Chronic conditions: HTN- nifedipine 30mg po, metoprolol 25mg BID po HLD/CAD- Rosuvastatin 20mg OP- calcium/vitamin D supplementation, s/p Prolia x 3 (last dose 07/29/2023), and Reclast x 1 (last dose 05/2023) Of note, the patient had a very unpleasant experience during her stay at [facility] and is requesting that if services as such are required again, [facility] be completely removed as an option. Case management consult placed to inform of such. Patient medically stable for discharge pending placement at a rehab facility as of 09/10. Dispo: Admit, med/tele VTE prophylaxis: Pamelaquis Updated at bedside on 09/09. Admission and Anticipated Discharge Date Admission Date: September 09, 2024 Subjective Patient seen and examined this morning. Patients has no complaints today. She denies any worsening weakness. Her nurse reported difficulty swallowing pills this morning. Landy states that this happens from time to day. Reports this is not necessarily new. States she was able to eat/swallow her breakfast without difficulty. She denies choking, states that sometimes her pills feel like they get stuck. Otherwise, has no complaints. Review of Systems Constitutional: + fatigue; no fever and no chills Respiratory: no cough, no chest congestion, no dyspnea and no wheezing Cardiovascular: no chest pain and no dyspnea Gastrointestinal: no abdominal pain, no nausea and no vomiting Genitourinary: no dysuria and no difficulty urinating Musculoskeletal: no back pain Physical Exam Constitutional: WD/WN, vitals as above well nourished Eyes: PERRL, conjunctivae normal, anicteric sclerae Respiratory: normal respiratory effort, lungs clear to auscultation Cardiovascular: Rate/Rhythm: + irregularly irregular Gastrointestinal (Abdomen): Inspection/Auscultation: normal bowel sounds Percussion/Palpation: abdomen soft; abdomen nontender Musculoskeletal: Extremities: strength 5/5 throughout Skin: no rashes, warm and dry Neurologic: Speech / Cognition: normal speech Motor/Sensory: no sensory deficit Cranial Nerves: PERRL Results & Data Results & Data Vital Signs (Past 12 Hours) Vital Signs Temp Pulse Resp BP Pulse Ox O2 Del Method 09/11/24 09:00 Room Air 09/11/24 07:38 36.7 C 74 18 145/72 H 94 Room Air Laboratory Results 09/11/24 09/11/24 09/10/24 Range/Units 11:54 07:22 20:36 POC Glucose 176 H 171 H 148 H (70-99) mg/dl 09/10/24 Range/Units 16:46 POC Glucose 161 H (70-99) mg/dl PG Care Time/CCT Total # of Minutes Spent Total Time Spent with Patient: Total time spent is greater than 50% in coordination of care (as documented) at patient's floor/unit and/or counseling patient: Coding [place] [address] SUB INP/OBS CARE 2/35MIN Patient Type Established History Expanded Problem Focused Exam Expanded Problem Focused Medical Decision Making Moderate Complexity Diagnoses Weakness R53.1 Hypomagnesemia E83.42 Difficulty swallowing pills R13.10
[2024-09-12 07:29] LABS: Hematocrit (blood only) 33.8 % (37.0-47.0); Hemoglobin 12.1 g/dl (12.0-16.0); Mean Corpuscular Hemoglobin 32.1 pg (25.0-34.0); Mean Corpuscular Hgb Conc 35.8 g/dL (32.0-36.0); Mean Corpuscular Volume 89.7 fL (80.0-100.0); Platelet Count 123 K/uL (130-400); RDW Coefficient of Variation 12.7 % (11.5-14.5); RDW Standard Deviation 41.7 fL (36.4-46.3); Red Blood Count 3.77 M/uL (4.20-5.40); White Blood Count 3.75 K/ul (4.8-10.8)
[2024-09-12 08:01] LABS: BUN Creatinine Ratio 26.7 (10-20); Creatinine Clr Calc Pharmacy 63.3 ml/min; Magnesium 1.6 mg/dl (1.7-2.4); Potassium 3.8 mmol/L (3.5-5.1)
[2024-09-12] MEDS: MAGNESIUM SULFATE / D5W 1 GM/100 ML BAG IV SCH (09:13)
--- NOTE | 2024-09-12 14:31 | Hospitalist Progress Note ---
Date of Service September 12, 2024 Assessment & Plan (1) Weakness: (2) Hypomagnesemia: (3) Difficulty swallowing pills: Plan 84-year-old female PMHx previous CVA 07/2024, A-fib on Eliquis, HTN, HLD, CAD, T2DM, OA, and OP presenting to ED for weakness in bilateral lower extremities, blurriness in the eyes x 2 days. Recent hospital admission 08/13/2024 to 08/18/2024 for CVA presenting as weakness. Workup in ED on admission revealing no gross lab abnormalities with exception of slightly elevated BUN/creatinine ratio. EKG does reveal the patient is in A-fib, which is also noted per her history and patient is anticoagulated. Head CT does reveal subacute ischemic injury to the right capsule. MRI of the brain and lumbar spine without acute findings. #BLE weakness/Ambulatory dysfunction - CT head subacute ischemic injury of the right capsule, no evidence of hemorrhagic transformation - Brain MRI w/o acute pathology; Lumbar spine MRI w/ DDD in multiple areas but no impingement or acute findings. - Echo with bubble 08/14/2024 A-fib, AV sclerosis, concentric LVH, EF 55 to 60%, LV moderately dilated, moderate apical trabeculations and dilatation, RVS function borderline reduced, moderately dilated LA, moderate/severely dilated RA, no evidence of ASD - 08/14/2024 - A1c 7.8%, lipids total 138, LDL 71, HDL 32, triglycerides 175, on rosuvastatin 20mg - Troponin < 2.3; EKG A-fib, prior infarcts, rate at 94 bpm - UA negative - Takes Plavix 75 mg daily, no DAPT - Neurology consulted - no new stroke this admission. symptoms consistent with previous CVA. recommending rehab. - PT/OT order placed- rec rehab. - CBC stable, BMP w/ mildly low K s/p replacement this admission. Repeat CBC, BMP tomorrow #Hypomagnesemia Mg found to be 1.5 on admission. Repeat 09/10 stable at 2 Mg 09/12 1.6 - repleted with 2 bags today. Repeat mag tomorrow #A-fib, permanent, on Eliquis Previous history of permanent A-fib, on Eliquis; initially diagnosed around 2019. Asymptomatic. - EKG on admission showed A-fib, rate 94 bpm - TSH 0.938 - Anticoagulated with Eliquis; rate controlled with metoprolol and nifedipine; no rhythm control medications #T2DM H/o DMT2, glimepiride and metformin - d/c glimepriride d/t low platelets. Start Jardiance 10mg daily on d/c since only able to admin inpatient w/ HF diagnosis which patient does not have. Will hold off on increasing metformin dose at this time. Will check B12 with tomorrow labs. Patient refusing insulin. D/C finger sticks per patient request. #Difficulty swallowing pills This is not new for the patient and occurs intermittently Speech eval and treat - taught patient effortful swallow and chin tuck when she takes her pills. Provide pills with yogurt. Could trial meds crushed or liquid if issues persist. Chronic conditions: HTN- nifedipine 30mg po, metoprolol 25mg BID po HLD/CAD- Rosuvastatin 20mg OP- calcium/vitamin D supplementation, s/p Prolia x 3 (last dose 07/29/2023), and Reclast x 1 (last dose 05/2023) Of note, the patient had a very unpleasant experience during her stay at [facility] and is requesting that if services as such are required again, [facility] be completely removed as an option. Case management consult placed to inform of such. Patient medically stable for discharge pending placement at a rehab facility as of 09/10. Dispo: Admit, med/tele VTE prophylaxis: Ana Updated at bedside on 09/12. Admission and Anticipated Discharge Date Admission Date: September 09, 2024 Subjective Landy has minimal complaints today. She denies any worsening weakness. Has intermittent nausea but none currently. is at the bedside. She is eager to leave the hospital - waiting placement. Review of Systems Constitutional: + fatigue; no fever and no chills Respiratory: no cough, no chest congestion, no dyspnea and no wheezing Cardiovascular: no chest pain and no dyspnea Gastrointestinal: no abdominal pain, no nausea and no vomiting Genitourinary: no dysuria and no difficulty urinating Musculoskeletal: no back pain Physical Exam Constitutional: WD/WN, vitals as above well nourished Eyes: PERRL, conjunctivae normal, anicteric sclerae Respiratory: normal respiratory effort, lungs clear to auscultation Cardiovascular: Rate/Rhythm: + irregularly irregular Gastrointestinal (Abdomen): Inspection/Auscultation: normal bowel sounds Percussion/Palpation: abdomen soft; abdomen nontender Skin: no rashes, warm and dry Neurologic: Speech / Cognition: normal speech Results & Data Results & Data Vital Signs (Past 12 Hours) Vital Signs Temp Pulse Resp BP Pulse Ox O2 Del Method 09/12/24 07:25 36.5 C 69 18 124/76 95 Room Air Laboratory Results 09/12/24 09/12/24 09/12/24 Range/Units 11:23 07:20 07:11 WBC 3.75 L (4.8-10.8) K/ul RBC 3.77 L (4.20-5.40) M/uL Hgb 12.1 (12.0-16.0) g/dl Hct 33.8 L (37.0-47.0) % MCV 89.7 (80.0-100.0) fL MCH 32.1 (25.0-34.0) pg MCHC 35.8 (32.0-36.0) g/dL RDW Std Deviation 41.7 (36.4-46.3) fL RDW Coeff of Dusty 12.7 (11.5-14.5) % Plt Count 123 L (130-400) K/uL MPV 10.0 (9.4-12.4) fL Sodium 140 (136-145) mmol/L Potassium 3.8 (3.5-5.1) mmol/L Chloride 106 (98-107) mmol/L Carbon Dioxide 27 (21-32) mmol/L Anion Gap 7 (3-11) BUN 16 (6-23) mg/dl Creatinine 0.60 (0.6-1.2) mg/dl Est Cr Clr Drug Dosing 63.3 ml/min eGFR 87.36 BUN/Creatinine Ratio 26.7 H (10-20) Glucose 162 H (70-99(Fasting)) mg/dl POC Glucose 234 H 156 H (70-99) mg/dl Calcium 9.0 (8.6-10.3) mg/dl Magnesium 1.6 L (1.7-2.4) mg/dl 09/11/24 09/11/24 Range/Units 20:44 16:53 WBC (4.8-10.8) K/ul RBC (4.20-5.40) M/uL Hgb (12.0-16.0) g/dl Hct (37.0-47.0) % MCV (80.0-100.0) fL MCH (25.0-34.0) pg MCHC (32.0-36.0) g/dL RDW Std Deviation (36.4-46.3) fL RDW Coeff of Dusty (11.5-14.5) % Plt Count (130-400) K/uL MPV (9.4-12.4) fL Sodium (136-145) mmol/L Potassium (3.5-5.1) mmol/L Chloride (98-107) mmol/L Carbon Dioxide (21-32) mmol/L Anion Gap (3-11) BUN (6-23) mg/dl Creatinine (0.6-1.2) mg/dl Est Cr Clr Drug Dosing ml/min eGFR BUN/Creatinine Ratio (10-20) Glucose (70-99(Fasting)) mg/dl POC Glucose 140 H 178 H (70-99) mg/dl Calcium (8.6-10.3) mg/dl Magnesium (1.7-2.4) mg/dl PG Care Time/CCT Total # of Minutes Spent Total Time Spent with Patient: Total time spent is greater than 50% in coordination of care (as documented) at patient's floor/unit and/or counseling patient: Coding [place] [address] SUB INP/OBS CARE 2/35MIN Patient Type Established Medical Decision Making Moderate Complexity Diagnoses Weakness R53.1 Hypomagnesemia E83.42 Difficulty swallowing pills R13.10
[2024-09-13 07:12] LABS: Hemoglobin 11.4 g/dl (12.0-16.0); Mean Corpuscular Hemoglobin 31.8 pg (25.0-34.0); Mean Corpuscular Hgb Conc 35.6 g/dL (32.0-36.0); Mean Corpuscular Volume 89.4 fL (80.0-100.0); Mean Platelet Volume 10.3 fL (9.4-12.4); Platelet Count 120 K/uL (130-400); RDW Coefficient of Variation 12.7 % (11.5-14.5); RDW Standard Deviation 41.4 fL (36.4-46.3); Red Blood Count 3.58 M/uL (4.20-5.40); White Blood Count 3.65 K/ul (4.8-10.8)
[2024-09-13 07:30] LABS: BUN Creatinine Ratio 15.8 (10-20); Calcium 8.8 mg/dl (8.6-10.3); Creatinine Clr Calc Pharmacy 66.7 ml/min; Magnesium 1.5 mg/dl (1.7-2.4); Potassium 3.6 mmol/L (3.5-5.1)
[2024-09-13] MEDS ORDERED: EMPAGLIFLOZIN 10 MG TAB PO SCH (09:00)
[2024-09-13] MEDS: MAGNESIUM OXIDE 400 MG TAB PO SCH (10:15)
--- NOTE | 2024-09-13 14:48 | Hospitalist Progress Note ---
Date of Service September 13, 2024 Assessment & Plan (1) Weakness: (2) Hypomagnesemia: (3) Difficulty swallowing pills: Plan 84-year-old female PMHx previous CVA 07/2024, A-fib on Eliquis, HTN, HLD, CAD, T2DM, OA, and OP presenting to ED for weakness in bilateral lower extremities, blurriness in the eyes x 2 days. Recent hospital admission 08/13/2024 to 08/18/2024 for CVA presenting as weakness. Head CT does reveal subacute ischemic injury to the right capsule. MRI of the brain and lumbar spine without acute findings. #BLE weakness/Ambulatory dysfunction CT head/brain MRI - show old stroke from prior admission. Had completed stroke workup 07/2024 and was discharged to SNF rehab. No other source found: L-spine MRI without acute findings, UA negative. TSH WNL. B12 WNL Neurology consulted - no new stroke this admission. symptoms consistent with pre vious CVA. Continue plavix. recommending rehab. - PT/OT - rec rehab. CM following, auth pending for [facility] #Hypomagnesemia Has been given IV replacement. Mag 1.5 today - PO replacement ordered BID x4 dose Recheck in AM - seems to be a chronic issue, and will likely benefit from daily replacement. #A-fib, permanent, on Eliquis/ HTN Previous history of permanent A-fib, on Eliquis. rate controlled with metoprolol and nifedipine - continue #T2DM H/o DMT2, glimepiride and metformin - d/c glimepriride d/t low platelets. Start Jardiance 10mg daily on d/c since only able to admin inpatient w/ HF diagnosis which patient does not have. Patient refusing insulin. D/C finger sticks per patient request. #Difficulty swallowing pills This is not new for the patient and occurs intermittently Speech eval and treat - taught patient effortful swallow and chin tuck when she takes her pills. Provide pills with yogurt. Could trial meds crushed or liquid if issues persist. HLD/CAD- Rosuvastatin 20mg OP- calcium/vitamin D supplementation, s/p Prolia x 3 (last dose 07/29/2023), and Reclast x 1 (last dose 05/2023) Dispo: continued inpatient stay DVT proh: home Eliquis Admission and Anticipated Discharge Date Admission Date: September 09, 2024 Subjective Sitting up in bed, eating lunch. No acute complaints, ask for assistnce to open her milk and yogurt. Review of Systems Review of Systems: All systems reviewed & are unremarkable except as noted in Subjective Physical Exam Physical Exam: General: NAD, vitals as above, sitting up eating lunch Pulm: breathing unlabored CV: well perfused extremities: moves all extremities Results & Data Results & Data Vital Signs (Past 12 Hours) Vital Signs Temp Pulse Resp BP Pulse Ox O2 Del Method 09/13/24 11:06 95 09/13/24 07:35 Room Air 09/13/24 07:14 97.7 F 72 18 120/82 98 Room Air Laboratory Results cbc, chemistry, mag and B12 reviewed PG Care Time/CCT Total # of Minutes Spent Total Time Spent with Patient: Total time spent is greater than 50% in coordination of care (as documented) at patient's floor/unit and/or counseling patient: Coding Level of Care Code 53880 SUB INP/OBS CARE 2/35MIN Diagnoses Weakness R53.1 Hypomagnesemia E83.42 Difficulty swallowing pills R13.10
[2024-09-14 07:59] LABS: BUN Creatinine Ratio 19.6 (10-20); Calcium 9.4 mg/dl (8.6-10.3); Creatinine Clr Calc Pharmacy 67.9 ml/min; Magnesium 1.6 mg/dl (1.7-2.4); Potassium 3.9 mmol/L (3.5-5.1)
--- NOTE | 2024-09-14 11:02 | Hospitalist Progress Note ---
Date of Service September 14, 2024 Assessment & Plan (1) Weakness: (2) Hypomagnesemia: (3) Difficulty swallowing pills: Plan 84-year-old female PMHx previous CVA 07/2024, A-fib on Eliquis, HTN, HLD, CAD, T2DM, OA, and OP presenting to ED for weakness in bilateral lower extremities, blurriness in the eyes x 2 days. Recent hospital admission 08/13/2024 to 08/18/2024 for CVA presenting as weakness. Head CT does reveal subacute ischemic injury to the right capsule. MRI of the brain and lumbar spine without acute findings. #BLE weakness/Ambulatory dysfunction CT head/brain MRI - show old stroke from prior admission. Had completed stroke workup 07/2024 and was discharged to SNF rehab. No other source found: L-spine MRI without acute findings, UA negative. TSH WNL. B12 WNL Neurology consulted - no new stroke this admission. symptoms consistent with pre vious CVA. Continue plavix. recommending rehab. - PT/OT - rec rehab. CM following, [id number] denied for [facility] today. Recheck UA with urinary frequency - negative for infection #Hypomagnesemia Has been given IV replacement. Mag 1.6 today after PO supplementation. This seems to be a chronic issue, will continue on daily PO supplementation after 3 days BID, rec continue at discharge. #A-fib, permanent, on Eliquis/ HTN Previous history of permanent A-fib, on Eliquis. rate controlled with metoprolol - continue nifedipine for blood pressure control #T2DM H/o DMT2, glimepiride and metformin - d/c glimepiride d/t low platelets. Start Jardiance 10mg daily on d/c since only able to admin inpatient w/ HF diagnosis which patient does not have. Patient refusing insulin. D/C finger sticks per patient request. #Difficulty swallowing pills This is not new for the patient and occurs intermittently Speech eval and treat - taught patient effortful swallow and chin tuck when she takes her pills. Provide pills with yogurt. Could trial meds crushed or liquid if issues persist. #HLD/CAD- Rosuvastatin 20mg OP- calcium/vitamin D supplementation, s/p Prolia x 3 (last dose 07/29/2023), and Reclast x 1 (last dose 05/2023) Dispo: continued inpatient stay DVT proph: home Ana Admission and Anticipated Discharge Date Admission Date: September 09, 2024 Supervising Physician Co-Signing Physician Notes PA Supervision Note: I did not personally see or examine the patient today, but I verified all iverson points of PETER Gonzalez's assessment and plan with the following exceptions/additions: None Subjective Patient seen sitting up in the chair - needing to go to the bathroom. No acute pain. Reports she is wanting to get out of here. Did not sleep well because she is waking up multiple times at night to go to the bathroom. Also worried about going [facility]. States urinary frequency started before she was feeling weak. No dysuria. Checked UA - no signs of infection. Will add melatonin for sleep. Review of Systems Review of Systems: All systems reviewed & are unremarkable except as noted in Subjective Physical Exam Physical Exam: General: NAD, VS as above, sitting up in the chair Resp: normal respiratory effort, lungs clear to auscultation CV: afib, no murmur, Abd: normal bowel sounds, non tender, no hepatosplenomegaly Extremities: Moves all extremities, trace, non pitting B/l ankle edema Results & Data Results & Data Vital Signs (Past 12 Hours) Vital Signs Temp Pulse Resp BP Pulse Ox O2 Del Method 09/14/24 07:48 97.5 F L 81 16 138/78 96 Room Air 09/14/24 07:45 Room Air Laboratory Results BMP and mag reviewed UA reviewed PG Care Time/CCT Total # of Minutes Spent Total Time Spent with Patient: Total time spent is greater than 50% in coordination of care (as documented) at patient's floor/unit and/or counseling patient: Coding Level of Care Code 44623 SUB INP/OBS CARE 2/35MIN Diagnoses Weakness R53.1 Hypomagnesemia E83.42 Difficulty swallowing pills R13.10
[2024-09-14 11:30] LABS: Appearance Urine Clear (Clear); Bilirubin Urine Negative (Negative); Blood Urine Negative (Negative); Color Urine Yellow; Glucose Urine UA 2+ (Negative); Ketones Urine Trace (Negative); Leukocyte Esterase Urine Negative (Negative); Nitrite Urine Negative (Negative); Protein Urine Negative (Negative); Specific Gravity Urine 1.018 (1.000-1.030); Urobilinogen Urine Negative (Negative); pH Urine 6.5 (4.5-7.5)
[2024-09-14] MEDS ORDERED: MELATONIN 3 MG TAB PO PRN (11:46)
[2024-09-15] MEDS: ACETAMINOPHEN 500 MG TAB PO PRN (02:22)
--- NOTE | 2024-09-15 15:57 | Hospitalist Progress Note ---
Date of Service September 15, 2024 Assessment & Plan (1) Weakness: (2) Hypomagnesemia: (3) Difficulty swallowing pills: Plan 84-year-old female PMHx previous CVA 07/2024, A-fib on Eliquis, HTN, HLD, CAD, T2DM, OA, and OP presenting to ED for weakness in bilateral lower extremities, blurriness in the eyes x 2 days. Recent hospital admission 08/13/2024 to 08/18/2024 for CVA presenting as weakness. Head CT does reveal subacute ischemic injury to the right capsule. MRI of the brain and lumbar spine without acute findings - showed prior strokes. Had full stroke workup 07/2024. Seen by Neurology this admission and did not recommend further stroke up this admissions, symptoms consistent with prior CVA. Continue plavix. #BLE weakness/Ambulatory dysfunction CT head/brain MRI - show old stroke from prior admission. No other source found: L-spine MRI without acute findings, UA negative. TSH WNL. B12 WNL Neurology consulted - no new stroke this admission. symptoms consistent with previous CVA. Continue plavix. recommending rehab. PT/OT - rec rehab. CM following, [id number] denied for [facility] 09/14, family persuing family appeal #Hypomagnesemia Has been given IV replacement. Mag 1.6 today after PO supplementation. This seems to be a chronic issue, will continue on daily PO supplementation after 3 days BID, rec continue at discharge. #A-fib, permanent, on Eliquis/ HTN Previous history of permanent A-fib, on Eliquis. rate controlled with metoprolol - continue nifedipine for blood pressure control #T2DM H/o DMT2, glimepiride and metformin - d/c glimepiride d/t low platelets. Start Jardiance 10mg daily on d/c since only able to admin inpatient w/ HF diagnosis which patient does not have. suspect urinary frequency related to hyperglycemia - pt again refused insulin or further titration of metformin. #Difficulty swallowing pills This is not new for the patient and occurs intermittently Speech eval and treat - taught patient effortful swallow and chin tuck when she takes her pills. Provide pills with yogurt. #HLD/CAD- Rosuvastatin 20mg OP- calcium/vitamin D supplementation, s/p Prolia x 3 (last dose 07/29/2023), and Reclast x 1 (last dose 05/2023) Dispo: continued inpatient stay DVT proph: home Eliquis Admission and Anticipated Discharge Date Admission Date: September 09, 2024 Supervising Physician Co-Signing Physician Notes PA Supervision Note: I did not personally see or examine the patient today, but I verified all iverson points of PETER Gonzalez's assessment and plan with the following exceptions/additions: None Subjective Patient seen sitting up in the chair. Frustrated that she is still here and her insurance is not paying for rehab. discussed urinary frequency and increased BSG she is again refusing insulin because she is on metformin. educated that they could be used in conjunction but still refusing Review of Systems Review of Systems: All systems reviewed & are unremarkable except as noted in Subjective Physical Exam Physical Exam: General: NAD, VS as above, sitting up in the chair Resp: normal respiratory effort, lungs clear to auscultation CV: afib, no murmur, Abd: normal bowel sounds, non tender, no hepatosplenomegaly Extremities: Moves all extremities, trace, non pitting B/l ankle edema Results & Data Results & Data Vital Signs (Past 12 Hours) Vital Signs Temp Pulse Resp BP Pulse Ox O2 Del Method 09/15/24 10:51 Room Air 09/15/24 07:54 97.7 F 71 16 122/79 96 Room Air Laboratory Results POC BSG reviewed PG Care Time/CCT Total # of Minutes Spent Total Time Spent with Patient: Total time spent is greater than 50% in coordination of care (as documented) at patient's floor/unit and/or counseling patient: Coding Level of Care Code 31402 SUB INP/OBS CARE 2/35MIN Diagnoses Weakness R53.1 Hypomagnesemia E83.42 Difficulty swallowing pills R13.10
[2024-09-16] MEDS: MAGNESIUM OXIDE 400 MG TAB PO SCH (08:51)
[2024-09-16] MEDS ORDERED: ARTIFICIAL TEARS OPB PRN (10:59)
--- NOTE | 2024-09-16 12:54 | Hospitalist Progress Note ---
Date of Service September 16, 2024 Assessment & Plan (1) Weakness: (2) Hypomagnesemia: (3) Difficulty swallowing pills: Plan 84-year-old female PMHx previous CVA 07/2024, A-fib on Eliquis, HTN, HLD, CAD, T2DM, OA, and OP presenting to ED for weakness in bilateral lower extremities, blurriness in the eyes x 2 days. Recent hospital admission 08/13/2024 to 08/18/2024 for CVA presenting as weakness. Head CT does reveal subacute ischemic injury to the right capsule. MRI of the brain and lumbar spine without acute findings - showed prior strokes. Had full stroke workup 07/2024. Seen by Neurology this admission and did not recommend further stroke up this admissions, symptoms consistent with prior CVA. Continue plavix. #BLE weakness/Ambulatory dysfunction CT head/brain MRI - show old stroke from prior admission. No other source found: L-spine MRI without acute findings, UA negative. TSH WNL. B12 WNL Neurology consulted - no new stroke this admission. symptoms consistent with previous CVA. Continue plavix. recommending rehab. PT/OT - rec rehab. CM following, [id number] denied for [facility] 09/14, family pursuing family appeal #Hypomagnesemia Has been given IV replacement. Mag 1.6 today after PO supplementation. This seems to be a chronic issue, will continue on daily PO supplementation, rec continue at discharge. #A-fib, permanent, on Eliquis/ HTN Previous history of permanent A-fib, on Eliquis. rate controlled with metoprolol - continue nifedipine for blood pressure control #T2DM H/o DMT2, glimepiride and metformin - d/c glimepiride d/t low platelets. Start Jardiance 10mg daily on d/c since only able to admin inpatient w/ HF diagnosis which patient does not have. suspect urinary frequency related to hyperglycemia - pt again refused insulin or further titration of metformin. okay to stop BSG as no intervention #Difficulty swallowing pills This is not new for the patient and occurs intermittently [employer] taught patient effortful swallow and chin tuck when she takes her pills. Provide pills with yogurt. #HLD/CAD- Rosuvastatin 20mg OP- calcium/vitamin D supplementation, s/p Prolia x 3 (last dose 07/29/2023), and Reclast x 1 (last dose 05/2023) Dispo: continued inpatient stay DVT proph: home Eliquis Admission and Anticipated Discharge Date Admission Date: September 09, 2024 Supervising Physician Co-Signing Physician Notes PA Supervision Note: I did not personally see or examine the patient today, but I verified all iverson points of PETER Gonzalez's assessment and plan with the following exceptions/additions: None Subjective Patient seen sitting up in the chair, complains about being cold and about getting her finger stuck for blood sugar checks. Otherwise that she is waiting to get out of the hospital Warm blanket provided Review of Systems Review of Systems: All systems reviewed & are unremarkable except as noted in Subjective Physical Exam Physical Exam: General: NAD, vitals as above, sitting up to the chair Pulm: breathing unlabored CV: well perfused extremities: moves all extremities Results & Data Results & Data Vital Signs (Past 12 Hours) Vital Signs Temp Pulse Pulse Resp BP BP Pulse Ox 09/16/24 11:50 98.1 F 71 16 88/59 L 97 09/16/24 07:30 97.5 F L 78 16 128/81 96 O2 Del Method 09/16/24 11:50 Room Air 09/16/24 07:30 Room Air PG Care Time/CCT Total # of Minutes Spent Total Time Spent with Patient: Total time spent is greater than 50% in coordination of care (as documented) at patient's floor/unit and/or counseling patient: Coding Level of Care Code 12774 SUB INP/OBS CARE 09/11MIN Diagnoses Weakness R53.1 Hypomagnesemia E83.42 Difficulty swallowing pills R13.10
--- NOTE | 2024-09-17 10:49 | Hospitalist Progress Note ---
Date of Service September 17, 2024 Assessment & Plan (1) Weakness: (2) Hypomagnesemia: (3) Difficulty swallowing pills: Plan 84-year-old female PMHx previous CVA 07/2024, A-fib on Eliquis, HTN, HLD, CAD, T2DM, OA, and OP presenting to ED for weakness in bilateral lower extremities, blurriness in the eyes x 2 days. Recent hospital admission 08/13/2024 to 08/18/2024 for CVA presenting as weakness. Head CT does reveal subacute ischemic injury to the right capsule. MRI of the brain and lumbar spine without acute findings - showed prior strokes. Had full stroke workup 07/2024. Seen by Neurology this admission and did not recommend further stroke up this admissions, symptoms consistent with prior CVA. Continue plavix. #BLE weakness/Ambulatory dysfunction CT head/brain MRI - show old stroke from prior admission. No other source found: L-spine MRI without acute findings, UA negative. TSH WNL. B12 WNL Neurology consulted - no new stroke this admission. symptoms consistent with previous CVA. Continue plavix. recommending rehab. PT/OT - rec rehab. CM following, [id number] denied for [facility] 09/14, family pursuing family appeal - awaiting determination #Hypomagnesemia Has been given IV and BID PO replacement. This seems to be a chronic issue, will continue on daily PO supplementation, rec continue at discharge. #A-fib, permanent, on Eliquis/ HTN Previous history of permanent A-fib, on Eliquis. rate controlled with metoprolol - continue nifedipine for blood pressure control #T2DM H/o DMT2, glimepiride and metformin - d/c glimepiride d/t low platelets. Start Jardiance 10mg daily on d/c since only able to admin inpatient w/ HF diagnosis which patient does not have. suspect urinary frequency related to hyperglycemia - pt again refused insulin or further titration of metformin. okay to stop BSG as no intervention Should remain on Carb consistent diet as she is not allowing us to intervene on elevated BSGs #Difficulty swallowing pills This is not new for the patient and occurs intermittently NEONATOLOGIST taught patient effortful swallow and chin tuck when she takes her pills. Provide pills with yogurt. #HLD/CAD- Rosuvastatin 20mg OP- calcium/vitamin D supplementation, s/p Prolia x 3 (last dose 07/29/2023), and Reclast x 1 (last dose 05/2023) Dispo: continued inpatient stay, awaiting determination of family appeal DVT proph: home Eliquis Admission and Anticipated Discharge Date Admission Date: September 09, 2024 Supervising Physician Co-Signing Physician Notes PA Supervision Note: I did not personally see or examine the patient today, but I verified all iverson points of PETER Gonzalez's assessment and plan with the following exceptions/additions: None Subjective Patient seen sitting up in the chair. Reports being tired. NOt sleeping well - offered melatonin, she declined. offered face mask and ear plugs and she also declined. No other acute concerns Review of Systems Review of Systems: All systems reviewed & are unremarkable except as noted in Subjective Physical Exam Physical Exam: General: NAD, vitals as above, sitting up to the chair Pulm: breathing unlabored CV: well perfused extremities: moves all extremities Results & Data Results & Data Vital Signs (Past 12 Hours) Vital Signs Temp Pulse Resp BP Pulse Ox O2 Del Method 09/17/24 07:36 97.9 F 79 16 130/81 97 Room Air 09/17/24 02:45 83 118/73 PG Care Time/CCT Total # of Minutes Spent Total Time Spent with Patient: Total time spent is greater than 50% in coordination of care (as documented) at patient's floor/unit and/or counseling patient: Coding Level of Care Code 02537 SUB INP/OBS CARE 09/11MIN Diagnoses Weakness R53.1 Hypomagnesemia E83.42 Difficulty swallowing pills R13.10
--- NOTE | 2024-09-18 11:30 | Hospitalist Progress Note ---
Date of Service September 18, 2024 Assessment & Plan (1) Weakness: (2) Hypomagnesemia: (3) Difficulty swallowing pills: Plan 84-year-old female PMHx previous CVA 07/2024, A-fib on Eliquis, HTN, HLD, CAD, T2DM, OA, and OP presenting to ED for weakness in bilateral lower extremities, blurriness in the eyes x 2 days. Recent hospital admission 08/13/2024 to 08/18/2024 for CVA presenting as weakness. Head CT does reveal subacute ischemic injury to the right capsule. MRI of the brain and lumbar spine without acute findings - showed prior strokes. Had full stroke workup 07/2024. Seen by Neurology this admission and did not recommend further stroke up this admissions, symptoms consistent with prior CVA. Continue plavix. #BLE weakness/Ambulatory dysfunction CT head/brain MRI - show old stroke from prior admission. No other source found: L-spine MRI without acute findings, UA negative. TSH WNL. B12 WNL Neurology consulted - no new stroke this admission. symptoms consistent with previous CVA. Continue plavix. recommending rehab. PT/OT - rec rehab. CM following, [id number] denied for [facility] 09/14, family pursuing family appeal - awaiting determination #Hypomagnesemia Has been given IV and BID PO replacement. This seems to be a chronic issue, will continue on daily PO supplementation, rec continue at discharge. #A-fib, permanent, on Eliquis/ HTN Previous history of permanent A-fib, on Eliquis. rate controlled with metoprolol - continue nifedipine for blood pressure control #T2DM H/o DMT2, glimepiride and metformin - d/c glimepiride d/t low platelets. Start Jardiance 10mg daily on d/c since only able to admin inpatient w/ HF diagnosis which patient does not have. suspect urinary frequency related to hyperglycemia - pt again refused insulin or further titration of metformin. okay to stop BSG as no intervention Should remain on Carb consistent diet as she is not allowing us to intervene on elevated BSGs #Difficulty swallowing pills This is not new for the patient and occurs intermittently POLEYARD SUPERVISOR taught patient effortful swallow and chin tuck when she takes her pills. Provide pills with yogurt. HLD/CAD- Rosuvastatin 20mg OP- calcium/vitamin D supplementation, s/p Prolia x 3 (last dose 07/29/2023), and Reclast x 1 (last dose 05/2023) Dispo: continued inpatient stay, awaiting determination of family appeal DVT proph: home Eliquis Admission and Anticipated Discharge Date Admission Date: September 09, 2024 Subjective patient slept better last night. frustrated that she is still here Review of Systems Review of Systems: All systems reviewed & are unremarkable except as noted in Subjective Physical Exam Physical Exam: General: NAD, vitals as above,lying in bed Pulm: breathing unlabored, CTA CV: well perfused, RRR extremities: moves all extremities Results & Data Results & Data Vital Signs (Past 12 Hours) Vital Signs Temp Pulse Resp BP Pulse Ox O2 Del Method 09/18/24 08:07 97.5 F L 70 14 128/82 96 Room Air PG Care Time/CCT Total # of Minutes Spent Total Time Spent with Patient: Total time spent is greater than 50% in coordination of care (as documented) at patient's floor/unit and/or counseling patient: Coding Level of Care Code 18761 SUB INP/OBS CARE 09/11MIN Diagnoses Weakness R53.1 Hypomagnesemia E83.42 Difficulty swallowing pills R13.10
--- NOTE | 2024-09-19 11:48 | Hospitalist Progress Note ---
Date of Service September 19, 2024 Assessment & Plan (1) Weakness: (2) Hypomagnesemia: (3) Difficulty swallowing pills: Plan 84-year-old female PMHx previous CVA 07/2024, A-fib on Eliquis, HTN, HLD, CAD, T2DM, OA, and OP presenting to ED for weakness in bilateral lower extremities, blurriness in the eyes x 2 days. Recent hospital admission 08/13/2024 to 08/18/2024 for CVA presenting as weakness. Head CT does reveal subacute ischemic injury to the right capsule. MRI of the brain and lumbar spine without acute findings - showed prior strokes. Had full stroke workup 07/2024. Seen by Neurology this admission and did not recommend further stroke up this admissions, symptoms consistent with prior CVA. Continue plavix. #BLE weakness/Ambulatory dysfunction CT head/brain MRI - show old stroke from prior admission. No other source found: L-spine MRI without acute findings, UA negative. TSH WNL. B12 WNL Neurology consulted - no new stroke this admission. symptoms consistent with previous CVA. Continue plavix. recommending rehab. PT/OT - rec rehab. CM following, [id number] denied for [facility] 09/14, family pursuing family appeal - awaiting determination #Hypomagnesemia Has been given IV and BID PO replacement. This seems to be a chronic issue, will continue on daily PO supplementation, rec continue at discharge. #A-fib, permanent, on Eliquis/ HTN Previous history of permanent A-fib, on Eliquis. rate controlled with metoprolol - continue nifedipine for blood pressure control #T2DM H/o DMT2, glimepiride and metformin - d/c glimepiride d/t low platelets. Start Jardiance 10mg daily on d/c since only able to admin inpatient w/ HF diagnosis which patient does not have. suspect urinary frequency related to hyperglycemia - pt again refused insulin or further titration of metformin. okay to stop BSG as no intervention Should remain on Carb consistent diet as she is not allowing us to intervene on elevated BSGs #Difficulty swallowing pills This is not new for the patient and occurs intermittently RENTAL MANAGER taught patient effortful swallow and chin tuck when she takes her pills. Provide pills with yogurt. HLD/CAD- Rosuvastatin 20mg OP- calcium/vitamin D supplementation, s/p Prolia x 3 (last dose 07/29/2023), and Reclast x 1 (last dose 05/2023) Dispo: continued inpatient stay, awaiting determination of family appeal DVT proph: home Eliquis Admission and Anticipated Discharge Date Admission Date: September 09, 2024 Subjective sitting up in the chair. slept okay last night frustrated with being here and IV site - okay to remove if desired spoke with daughter regarding PT eval yesterday - they would still like to wait for the results of the appeal Physical Exam Physical Exam: General: NAD, vitals as above,siting up in the chair Pulm: breathing unlabored, CV: well perfused, extremities: moves all extremities Results & Data Results & Data Vital Signs (Past 12 Hours) Vital Signs Temp Pulse Pulse Resp BP Pulse Ox O2 Del Method 09/19/24 09:53 99.0 F 72 16 144/72 H Room Air 09/19/24 07:15 97.5 F L 86 16 141/75 H 97 Room Air PG Care Time/CCT Total # of Minutes Spent Total Time Spent with Patient: Total time spent is greater than 50% in coordination of care (as documented) at patient's floor/unit and/or counseling patient: Coding Level of Care Code 95166 SUB INP/OBS CARE 09/11MIN Diagnoses Weakness R53.1 Hypomagnesemia E83.42 Difficulty swallowing pills R13.10
--- NOTE | 2024-09-20 10:41 | Discharge Summary ---
Discharge Summary Date of Service September 20, 2024 Principal Dx & Hospital Course #1 = Principal Diagnosis (1) Weakness: (2) Hypomagnesemia: (3) Difficulty swallowing pills: Plan 84-year-old female PMHx previous CVA 07/2024, A-fib on Eliquis, HTN, HLD, CAD, T2DM, OA, and OP presenting to ED for weakness in bilateral lower extremities, blurriness in the eyes x 2 days. Recent hospital admission 08/13/2024 to 08/18/2024 for CVA presenting as weakness. Head CT does reveal subacute ischemic injury to the right capsule. MRI of the brain and lumbar spine without acute findings - showed prior strokes. Had full stroke workup 07/2024. Seen by Neurology this admission and did not recommend further stroke up this admissions, symptoms consistent with prior CVA. Continue plavix. #BLE weakness/Ambulatory dysfunction CT head/brain MRI - show old stroke from prior admission. No other source found: L-spine MRI without acute findings, UA negative. TSH WNL. B12 WNL Neurology consulted - no new stroke this admission. symptoms consistent with previous CVA. Continue plavix. recommending rehab. PT/OT - rec rehab. [id number] denied for [facility] 09/14, family pursuing family appeal - awaiting determination - patient discharged home w/ outpatient PT/OT script on 09/20 #Hypomagnesemia Has been given IV and BID PO replacement. This seems to be a chronic issue, will continue on daily PO supplementation, rec continue at discharge. #A-fib, permanent, on Eliquis/ HTN Previous history of permanent A-fib, on Eliquis. rate controlled with metoprolol - continue nifedipine for blood pressure control #T2DM H/o DMT2, glimepiride and metformin - d/c glimepiride d/t low platelets. Start Jardiance 10mg daily on d/c since only able to admin inpatient w/ HF diagnosis which patient does not have. suspect urinary frequency related to hyperglycemia - pt again refused insulin or further titration of metformin. #Difficulty swallowing pills This is not new for the patient and occurs intermittently WOOL SORTER taught patient effortful swallow and chin tuck when she takes her pills. Provide pills with yogurt. HLD/CAD- Rosuvastatin 20mg OP- calcium/vitamin D supplementation, s/p Prolia x 3 (last dose 07/29/2023), and Reclast x 1 (last dose 05/2023) Patient discharged home with family 2/3 Admission HPI Per Admitting Provider 84-year-old female PMHx previous CVA 07/2024, A-fib on Eliquis, HTN, HLD, CAD, T2DM, OA, and OP presenting to ED for weakness in bilateral lower extremities, blurriness in the eyes for the past 2 days. Recent hospital admission 08/13/2024 to 08/18/2024 for CVA presenting as weakness. Patient was recently d ischarged from [facility] on 09/06/2024. The evening of discharge from [facility] she seems to have been doing better, however later into that evening and going into the day of arrival she seemed to be having more weakness and discomfort in bilateral legs. Reports of some confusion and increased tiredness as well. Was at her PCP visit today and brain MRI was ordered for the following week, but once she returned home her daughter noted that she seemed to "not be herself." The patinet went to sleep for a nap after her appointment. She awoke and went to use the restroom, but when she went to get off the toilet she said she could not feel her legs and felt weak. Her daughter assisted in standing, but the pt continued to feel as though she was going to fall over. Denies falls or syncopal episodes. Only complaint is that she has been unable to have a BM, but patient's daughter states that she did have a BM during this episode and it appeared to be normal in the toilet. Pt states that she is just uncomfortable, but cannot add more to this. Had 1 episode of emesis in the ED waiting room but did not have any nausea or abdominal pain prior to this. Ate [employer] for lunch. Feels more cold than usual. Denying chest pain, shortness of breath, palpitations, abdominal pain, N/D, numbness/tingling, LUTS, fever/chills, or URI symptoms. Patient took her daily medications the day of arrival. Upon arrival, patient was found to have no evidence of acute infection as supported by CBC, no gross electrolyte abnormalities with exception of a slightly elevated BUN/creatinine ratio and a normal TSH and troponin level. BioFire was negative and CXR revealed no acute findings. CT of the head did reveal subacute ischemic injury of the right capsule but without evidence of hemorrhagic transformation. MRI of the brain and lumbar spine ordered, without acute findings. UA pending. Received zofran and 500mL NSS in ED. Please see Dr. Connor's attestation for adjustments/additions to treatment plan. Discharge Exam General: NAD, vitals as above,siting up in the chair Pulm: breathing unlabored, CV: well perfused, extremities: moves all extremities Discharge Plan Discharge Items Patient Disposition: Home - Home Health Services Reason For Visit: BLE WEAKNESS, AMB DYS, RECENT CVA Discharge Diagnosis: Weakness from recent CVA Condition on Discharge: Good Activity: As commented below Activity Comment: work with therapy to get stronger Weightbearing: Full weightbearing Non-emergency contact: Primary Care Provider Call non-emergency contact if: you have any medication questions, your symptoms worsen, your pain is not controlled, your pain is worsening, your pain is concerning for you and your temperature is above 101 Follow-up/Referrals: Claudette Brar MD [Primary Care Provider] - (Follow up after discharge from rehab ) Diet: Carb Consistent or DM2 Addtl Attending Provider Instructions: Ms. Etienne, You were hospitalized after having weakness at home. You had a detailed workup that did not show any new causes for your symptoms and likely related to your old stroke. You were started on magnesium supplementation as your levels were consistently low. You also had higher blood sugars during your stay and would not take insulin. Your glimepiride was discontinued and you were started on Jardiance at discharge. You will be receiving PT and OT on an outpatient basis. A script has been provided for you on discharge. Sincerely, Evelyn Ward PA-C Pending Studies at Discharge: No Stand-Alone Forms: My [employer], Smoking Cessation Medications and DC Order Prescriptions: New Jardiance 10 mg tablet 10 mg PO DAILY Qty: 30 0RF Continued nifedipine 30 mg tablet extended release 30 mg PO DAILY Qty: 90 3RF cholecalciferol (vitamin D3) 1,000 unit capsule 3,000 units PO DAILY Qty: 90 Eliquis 5 mg tablet 5 mg PO BID Qty: 180 2RF hydrocortisone [Proctozone-HC] 2.5 % cream with perineal applicator 1 applic CA DAILY PRN (Reason: hemorrhoids) Qty: 30 1RF metoprolol succinate 25 mg tablet extended release 24 hr 25 mg PO BID Qty: 200 3RF metformin 500 mg tablet 500 mg PO DAILY Qty: 100 3RF clopidogrel 75 mg tablet 75 mg PO QAM Qty: 7 1RF acetaminophen 500 mg Capsule 500 mg PO Q6H PRN (Reason: Pain) rosuvastatin 20 mg Tablet 20 mg PO QAM Qty: 0 0RF Discontinued glimepiride 2 mg tablet 2 mg PO DAILY Qty: 90 3RF No Action (DME) blood sugar diagnostic Strip See Rx Instructions .ROUTE .MEDSUPPLY Qty: 300 1RF Rx Instructions: TEST 3 TIMES DAILY. DX: E11.9 PRN (prodigy) (DME) lancets [Prodigy Lancets] 28 gauge misc See Rx Instructions .ROUTE .MEDSUPPLY Qty: 300 1RF Rx Instructions: TEST 3 TIMES DAILY DX: E11.9 PRN (DME) blood-glucose meter [[employer] Aut[employer]ode Meter] Kit See Dose Instructions .ROUTE .MEDSUPPLY Qty: 1 0RF Rx Instructions: Check once daily Discharge Orders: Discharge Order (Routine); Ordered 09/20/24 Ordered By: Evelyn Ward Admission Data Admit Date/Time: 09/09/24 02:40 Attending Provider: Epifanio Sanchez Admit Provider: Anastacia Connor Primary Care Provider: Claudette Brar Other Providers: Anastacia Connor; Willy Francisco; Aaron Garcia; Gricelda Sidhu; Alis Fuller; Joanna Amaya; Chava Knox; [facility]; [facility] Other Interventions: Discharge Summary Assessment (RN) Last Done: 09/20/24 11:23 Hospital Stay Data Consultations 09/09/24 01:47 ED Decision to Admit Stat 09/09/24 10:06 Consult Neurology Routine Diagnostic Imagining Performed 09/08/24 21:39 CT head/brain wo con Stat MRI Brain [MR brain wo con] Stat MRI Lumbar Spine [MR lumbar spine wo con] Stat Pending Results Patient Have Any Pending Studies at Discharge: No Discharge Instructions Given to Patient (Per Discharging Provider) Ms. Etienne, You were hospitalized after having weakness at home. You had a detailed workup that did not show any new causes for your symptoms and likely related to your old stroke. You were started on magnesium supplementation as your levels were consistently low. You also had higher blood sugars during your stay and would not take insulin. Your glimepiride was discontinued and you were started on Jardiance at discharge. You will be receiving PT and OT on an outpatient basis. A script has been provided for you on discharge. Sincerely, Evelyn aWrd PA-C Total Time Total Time Spent Total Time Spent (In Minutes): 45 Total Time Includes: Examination of the Patient, Discharge Planning, Medication Reconciliation and Communication With Other Providers Coding Level of Care Code 31965 INP/OBS DISCH >30 MIN Diagnoses Weakness R53.1 Hypomagnesemia E83.42 Difficulty swallowing pills R13.10
[2024-09-20 15:02] VITALS: BP 107/61; PULSE 81; RESP 14; TEMP 98.1; O2SAT 97
== END 2024-09-20 16:20 | disposition home or self-care (01) | DRG 57 ==
LOC: ED 20:02 → EDINP 09-09 02:40 → SUATTDRO 09-09 02:40 → 2S 09-09 03:23 → 3W 09-09 18:29